=== PATIENT | female | born 1950 ===

== ENCOUNTER → 2019-12-26 10:13 | Outpatient (BNVA) | payer MEDICARE, OTHER, SELFPAY | PROVIDERS: PCP Internal Medicine; Referring Provider Internal Medicine; Visit Provider Internal Medicine | DX: E11.65 Type 2 diabetes mellitus with hyperglycemia (principal); Z79.4 Long term (current) use of insulin; M81.0 Age-related osteoporosis without current pathological fracture; E55.9 Vitamin D deficiency, unspecified; E78.5 Hyperlipidemia, unspecified; I10 Essential (primary) hypertension; Z79.899 Other long term (current) drug therapy | CPT/HCPCS: 99212 ==

== ENCOUNTER → 2020-08-17 09:04 | Outpatient (BNVA) | payer MEDICARE, OTHER, SELFPAY | PROVIDERS: PCP Internal Medicine; Visit Provider Internal Medicine | DX: E11.65 Type 2 diabetes mellitus with hyperglycemia (principal); E78.5 Hyperlipidemia, unspecified; I10 Essential (primary) hypertension; M81.0 Age-related osteoporosis without current pathological fracture; E55.9 Vitamin D deficiency, unspecified; Z79.4 Long term (current) use of insulin | CPT/HCPCS: 36415; 80053; 82009; 82947; 83036; 85025; 96372; 99212; 99283; J1815 ==

== ENCOUNTER 2020-08-17 10:16 | Emergency (ER) | payer MEDICARE, OTHER, SELFPAY ==
[2020-08-17 10:33] VITALS: BP 115/59; PULSE 105; RESP 14; TEMP 36.9; O2SAT 99; BMI 29.6
[2020-08-17 13:05] LABS: MANUAL DIFF FLAG NO
[2020-08-17 13:06] LABS: Basophils Percent Auto 0.4 % (0-2); Eosinophils Percent Auto 0.4 % (0-4); Hematocrit 39.3 % (37-47); Hemoglobin 12.9 g/dl (12.0-16.0); Imm Gran Abs Auto 0.05 X10*3/uL (0.00-0.03); Imm Gran Pct Auto 0.5 % (0.0-0.4); Lymphocytes Absolute Auto 4.2 X10*3/uL (1.2-4.9); Lymphocytes Percent Auto 41.5 % (20-40); Mean Corpuscular HGB Conc 32.8 g/dl (31.0-35.0); Mean Corpuscular Hemoglobin 29.5 pg (27.0-33.0); Mean Corpuscular Volume 89.9 fL (80-98); Mean Platelet Volume 11.5 fL (9.4-12.3); Monocytes Absolute Auto 0.7 X10*3/uL (0.1-1.2); Monocytes Percent Auto 6.9 % (2-11); Neutrophils Absolute Auto 5.1 X10*3/uL (2.0-8.3); Neutrophils Percent Auto 50.3 % (45-73); Platelet Count 277 X10*3/uL (160-400); Red Blood Count 4.37 X10*6/uL (4.20-5.50); Red Cell Distribution Width 12.5 % (11.0-16.0); White Blood Count 10.1 X10*3/uL (4.8-10.8)
[2020-08-17 13:35] LABS: Acetone, serum QL Negative (Negative)
[2020-08-17 13:47] LABS: Alanine Aminotransferase 33 U/L (0-31); Albumin Level 4.1 g/dL (3.5-5.0); Alkaline Phosphatase 125 U/L (39-117); Anion Gap 10 (12-20); Aspartate Amino Transferase 22 U/L (5-31); Bilirubin Total < 0.2 mg/dL (0.0-1.0); Blood Urea Nitrogen 15 mg/dL (9-16); Calcium 9.6 mg/dL (8.4-10.2); Carbon Dioxide 26 mmol/L (22-29); Chloride 103 mmol/L (96-108); Creatinine Clr Calc Pharmacy 62.3; Estimated Glomerular Filt Rate > 60; Glucose Random 292 mg/dL (60-115); Potassium 4.3 mmol/L (3.3-5.1); Sodium 135 mmol/L (135-145); Total Protein 7.1 g/dL (6.5-8.0)
--- NOTE | 2020-08-17 15:22 | ED_ITS ---
HPI - General Adult General Chief complaint: General Medical Stated complaint: elevated blood sugar Time Seen by Provider: 08/17/20 14:35 Source: patient Mode of arrival: ambulatory Limitations: no limitations History of Present Illness HPI narrative: 69-year-old female who presents emergency department for evaluat ion of hyperglycemia. The patient was seen by her PCP today and was found to have an elevated glucose and referred to the emergency department. The patient states that she missed her last doctor's appointment and ran out of her insulin and has not been taking her insulin for 2 months. She had a routine follow-up appointment today and was found to have a point of care glucose of 356. She states that she was given 10 units of insulin and her repeat point of care glucose was 446 therefore she was referred to emergency department for evaluation. The patient states that over the past 2 months she has had intermittent episodes of lightheadedness, dizziness and weakness. She has had urinary frequency, increased thirst and blurred vision. She denied fever, chills, chest pain, cough, nausea, vomiting, dysuria. Related Data Home Medications Medication Instructions Recorded Confirmed amitriptyline 25 mg tablet 25 mg PO DAILY 12/26/19 08/17/20 aspirin 81 mg tablet,delayed 81 mg PO DAILY 12/26/19 08/17/20 release atorvastatin 80 mg tablet 80 mg PO DAILY 12/26/19 08/17/20 blood sugar diagnostic #10 ea 12/26/19 08/17/20 calcium carbonate 600 mg calcium 600 mg PO BID 12/26/19 08/17/20 (1,500 mg) tablet cholecalciferol (vitamin D3) 50 50 mcg PO DAILY 12/26/19 08/17/20 mcg (2,000 unit) capsule Previous Rx's Medication Instructions Recorded losartan 25 mg tablet 25 mg PO DAILY 30 Days #30 tab 12/16/19 pen needle, diabetic 32 gauge x #120 ea 12/20/19 denosumab 60 mg/mL subcutaneous 60 mg SUBCUT [id number] 1 Days #1 ml 03/09/20 syringe insulin glargine 100 unit/mL (3 46 unit SUBCUT DAILY 30 Days #13.8 06/22/20 mL) subcutaneous pen ml insulin lispro 100 unit/mL 16 unit SUBCUT TID 30 Days #14.4 ml 06/22/20 subcutaneous pen insulin glargine [Lantus Solostar 50 unit SUBCUT QPM 30 Days #15 ml 08/17/20 U-100 Insulin] insulin lispro 22 unit SUBCUT TID 30 Days #19.8 ml 08/17/20 Allergies Allergy/AdvReac Type Severity Reaction Status Date / Time metformin Allergy Unknown GI Verified 08/17/20 09:14 discomfort Review of Systems Review of Systems: Yes all other systems are reviewed and are negative [facility] Past Medical History [facility] Narrative: Social history: The patient denies tobacco, alcohol and drug use. Medical History HLD (hyperlipidemia) HTN (hypertension) Osteoporosis T2DM (type 2 diabetes mellitus) Type 2 diabetes mellitus with hyperglycemia Vitamin D deficiency Surgical History History of kidney stones Hx of hysterectomy Family History Family History Father COPD (chronic obstructive pulmonary disease) Mother Osteoporosis Type 2 diabetes mellitus Social History Social History Patient Tobacco Use Status: Never used Tobacco Physical Exam Vital Signs: Vital Signs: Last Vital Signs Temp 98.4 F 08/17/20 10:33 Pulse 105 H 08/17/20 10:33 Resp 14 08/17/20 10:33 BP 115/59 L 08/17/20 10:33 Pulse Ox 99 08/17/20 10:33 Body Mass Index 29.6 Const: General: cooperative and healthy appearing Orientation/consciousness: oriented to person and oriented to place Limitations: no limitations HENMT: Head: Yes normal to inspection, Yes normocephalic and Yes atraumatic Ears: external ears normal General nose exam: Normal external nose present Face and sinus: Yes normal facial exam Mouth: Normal oral and palatal mucosa present Throat: Yes posterior oropharynx normal Eyes: Periorbital: periorbital findings normal Eyelids: Yes eyelids normal Conjunctivae: conjunctivae normal Sclerae: sclerae normal Corneas: corneas normal Pupils: Equal, round and reactive pupils present Direct Ophthalmoscopy: normal light reflex Neck: Neck: Yes full ROM, Yes no lymphadenopathy, Yes no meningeal signs, Yes trachea midline and Yes supple Chest: Chest palpation & inspection: normal inspection of the chest and normal palpation of entire chest wall Resp: Effort & Inspection: normal respiratory effort and able to speak in complete sentences Auscultation: clear to auscultation bilaterally Cardio: Rate: regular rate Rhythm: regular rhythm Heart sounds: S1 normal heart sound present, S2 normal heart sound present and no murmurs GI: Inspection: Yes normal to inspection Palpation (GI): Soft to palpation, nontender, no guarding, not rigid and No hepatosplenomegaly present : General: Yes no CVA tenderness Back/Spine/Pelvis: Back: no CVA tenderness Cervical Spine: normal cervical lordosis Thoracic/Lumbar Spine: thoracic and lumbar spine normal to inspection Skin: Lesions: no lesions Rashes: no rashes Wounds: no wounds Neuro: General: oriented to person, oriented to place and no meningeal signs Cranial nerves: Yes CN's II-XII intact bilaterally and Yes Equal, round and reactive pupils present Cognition (Neuro): normal cognition Motor exam (neuro): 5/5 motor strength present throughout Extrem: General: Yes normal to inspection and Yes full ROM Psych: Appearance: well kempt Mental Status: mental status grossly normal Speech and movement: Normal speech and movement present Affect: normal affect Attitude: cooperative Thought process: Normal thought process present Thought content: Normal thought content present Course Course Course Narrative: 69-year-old female who presents emergency department for evaluation of elevated glucose and to rule out DKA. The patient does have a history diabetes mellitus and ran out of her insulin x2 months. The patient told me that she takes Lantus 50 units at night and Humalog 22 units prior to meals. Patient's vital signs revealed tachycardia with a pulse of 105 otherwise were unremarkable. Patient's physical examination was unremarkable. Laboratory evaluation revealed a normal CBC. Patient's comprehensive metabolic panel did reveal an elevated AST and ALT of 33 and 125. Patient's bicarb was normal at 26 And anion gap was low at 10. The patient's serum glucose was 292.. The patient's acetone was not elevated. at this time, I do not think the patient is in DKA and that it is okay just to restart her insulin. She was given Lantus 30 units subcutaneously. I did give her printed prescription that she can take to the pharmacy. I told her that for doctor who called in a prescription radiation should get her doctor's prescription filled instead of my prescription. The patient was given verbal and printed instructions prior to discharge. The patient was advised to follow-up with their PCP in 2 days and to return to the emergency department if their symptoms get worse or if they develop any new s ymptoms that are concerning to them Medical Decision Making Lab Data Result diagrams: 08/17/20 12:52 08/17/20 12:52 Labs: Lab Results 08/17/20 08/17/20 Range/Units 12:52 12:52 WBC 10.1 (4.8-10.8) X10*3/uL RBC 4.37 (4.20-5.50) X10*6/uL Hgb 12.9 (12.0-16.0) g/dl Hct 39.3 (37-47) % MCV 89.9 (80-98) fL MCH 29.5 (27.0-33.0) pg MCHC 32.8 (31.0-35.0) g/dl RDW 12.5 (11.0-16.0) % Plt Count 277 (160-400) X10*3/uL MPV 11.5 (9.4-12.3) fL Immature Gran % (Auto) 0.5 H (0.0-0.4) % Neut % (Auto) 50.3 (45-73) % Lymph % (Auto) 41.5 H (20-40) % [place] % (Auto) 6.9 (2-11) % Eos % (Auto) 0.4 (0-4) % Baso % (Auto) 0.4 (0-2) % Lymph # (Auto) 4.2 (1.2-4.9) X10*3/uL [place] # (Auto) 0.7 (0.1-1.2) X10*3/uL Eos # (Auto) 0.0 (0.0-0.4) X10*3/uL Baso # (Auto) 0.0 (0.0-0.2) X10*3/uL Abs Immat Gran (auto) 0.05 H (0.00-0.03) X10*3/uL Absolute Neuts (auto) 5.1 (2.0-8.3) X10*3/uL Absolute Nucleated RBC 0.000 (0.0-0.012) X10*3/uL Nucleated RBC % (auto) 0.0 (0.0-0.2) /100WBC Sodium 135 (135-145) mmol/L Potassium 4.3 (3.3-5.1) mmol/L Chloride 103 (96-108) mmol/L Carbon Dioxide 26 (22-29) mmol/L Anion Gap 10 L (12-20) BUN 15 (9-16) mg/dL Creatinine 0.79 (0.5-1.4) mg/dL Estim Creat Clear Calc 62.3 Estimated GFR > 60 Random Glucose 292 H (60-115) mg/dL Calcium 9.6 (8.4-10.2) mg/dL Total Bilirubin < 0.2 (0.0-1.0) mg/dL AST 22 (5-31) U/L ALT 33 H (0-31) U/L Alkaline Phosphatase 125 H (39-117) U/L Total Protein 7.1 (6.5-8.0) g/dL Albumin 4.1 (3.5-5.0) g/dL Acetone, Qual Negative (Negative) Discharge Plan Discharge Clinical Impression: Type 2 diabetes mellitus with hyperglycemia Patient Disposition: Home, Self-Care Additional Instructions: Your blood work did reveal an elevated blood sugar of 292 but the rest of your blood chemistries were normal suggesting that your not in diabetic ketoacidosis which means we can just restart your insulin in you do not need to be hospitalized. I am giving you printed prescriptions for Lantus ( insulin glargine ) and Humolog( insulin lispro). Please get these prescriptions filled if your doctor did not send a prescription to your pharmacy. Follow-up with your doctor in 2 days. Please return to the emergency department if your symptoms get worse or if you develop any symptoms that are concerning to you. Prescriptions: New Lantus Solostar U-100 Insulin 100 unit/mL (3 mL) insulin pen 50 unit subcut QPM 30 Days Qty: 15 RF: 0 insulin lispro 100 unit/mL insulin pen 22 unit subcut TID 30 Days Qty: 19.8 RF: 0 No Action losartan 25 mg tablet 25 mg PO DAILY 30 Days Qty: 30 RF: 11 (DME) pen needle, diabetic [BD Ultra-Fine Sheree Pen Needle] 32 gauge x 5/32 needle See Rx Instructions .ROUTE .MEDSUPPLY Qty: 120 RF: 6 Prolia 60 mg/mL syringe 60 mg subcut [id number] 1 Days Qty: 1 RF: 2 Lantus Solostar U-100 Insulin 100 unit/mL (3 mL) insulin pen 46 unit subcut DAILY 30 Days Qty: 13.8 RF: 3 insulin lispro [Humalog KwikPen Insulin] 100 unit/mL insulin pen 16 unit subcut TID 30 Days Qty: 14.4 RF: 3 amitriptyline 25 mg tablet 25 mg PO DAILY RF: 0 atorvastatin 80 mg tablet 80 mg PO DAILY RF: 0 aspirin 81 mg tablet,delayed release (DR/EC) 81 mg PO DAILY RF: 0 cholecalciferol (vitamin D3) 50 mcg (2,000 unit) capsule 50 mcg PO DAILY RF: 0 calcium carbonate 600 mg calcium (1,500 mg) tablet 600 mg PO BID RF: 0 (DME) FreeStyle Test Strip See Rx Instructions .ROUTE .MEDSUPPLY Qty: 10 RF: 0
[2020-08-17] MEDS: Insulin Glargine,Hum.rec.anlog 100 UNIT/ML 10 ML VIAL 50 UNIT SUBCUT (15:48)
== END 2020-08-17 15:53 | disposition home or self-care (01) ==
PROVIDERS: Emergency Provider Emergency Medicine Emergency Medical Services; PCP Internal Medicine
DX: E11.65 Type 2 diabetes mellitus with hyperglycemia (principal); T38.3X6A Underdosing of insulin and oral hypoglycemic [antidiabetic] drugs, initial encounter; Z91.128 Patient's intentional underdosing of medication regimen for other reason; Y92.9 Unspecified place or not applicable; I10 Essential (primary) hypertension; Z79.899 Other long term (current) drug therapy
CPT/HCPCS: 36415; 80053; 82009; 85025; 99283

== ENCOUNTER → 2020-11-26 08:02 | Outpatient (BNVA) | payer MEDICARE, OTHER, SELFPAY | PROVIDERS: PCP Internal Medicine; Visit Provider Nurse Practitioner Gerontology | DX: E11.65 Type 2 diabetes mellitus with hyperglycemia (principal); E78.5 Hyperlipidemia, unspecified; I10 Essential (primary) hypertension; Z79.4 Long term (current) use of insulin | CPT/HCPCS: 82947; 99212 ==

== ENCOUNTER 2020-12-07 07:53 | Outpatient (REF) | payer MEDICARE, OTHER, SELFPAY ==
[2020-12-07 08:36] LABS: Estimated Average Glucose 171 mg/dL; Hemoglobin A1C 184.2139 umol/L; Hemoglobin A1c % 7.6 %
[2020-12-07 09:01] LABS: Alanine Aminotransferase 20 U/L (0-31); Albumin Level 4.1 g/dL (3.5-5.0); Alkaline Phosphatase 98 U/L (39-117); Anion Gap 11 (12-20); Aspartate Amino Transferase 17 U/L (5-31); Bilirubin Total 0.2 mg/dL (0.0-1.0); Blood Urea Nitrogen 16 mg/dL (9-16); Calcium 9.5 mg/dL (8.4-10.2); Carbon Dioxide 27 mmol/L (22-29); Chloride 109 mmol/L (96-108); Cholesterol 158 mg/dL; Estimated Glomerular Filt Rate > 60; Glucose Random 90 mg/dL (60-115); HDL Cholesterol 38 mg/dL; LDL Cholesterol Calculated 98 mg/dl; Phosphorus 4.4 mg/dL (2.7-4.5); Potassium 4.3 mmol/L (3.3-5.1); Sodium 143 mmol/L (135-145); Total Protein 7.2 g/dL (6.5-8.0); Triglycerides 113 mg/dL
[2020-12-07 09:15] LABS: Creatinine Urine 186.77 mg/dL; Microalbum/Creatinine Ratio Ur 12.3 ug/mg cr
[2020-12-07 09:22] LABS: Vitamin D 25-OH Total 40.7 ng/mL (>30)
[2020-12-08 06:31] LABS: LDL Cholesterol Direct 97 mg/dL (<100)
[2020-12-08 16:05] LABS: Calcium (PTHI) 9.7 mg/dL (8.6-10.4); PTHI 51 pg/mL (14-64)
[2020-12-10 17:12] LABS: N-Telopeptide 47 (see note); NTXCreaRU 172 mg/dL (20-275)
== END 2020-12-07 07:54 | disposition home or self-care (01) ==
LOC: HO.LAB 07:53
PROVIDERS: PCP Internal Medicine; Visit Provider Internal Medicine
DX: M81.0 Age-related osteoporosis without current pathological fracture (principal); E11.65 Type 2 diabetes mellitus with hyperglycemia; E55.9 Vitamin D deficiency, unspecified; Z79.4 Long term (current) use of insulin
CPT/HCPCS: 36415; 80053; 80061; 82043; 82306; 82523; 83036; 83721; 83970; 84100

== ENCOUNTER → 2020-12-22 08:26 | Outpatient (BNVA) | payer MEDICARE, OTHER, SELFPAY | PROVIDERS: PCP Internal Medicine; Visit Provider Registered Nurse Diabetes Educator | DX: E11.65 Type 2 diabetes mellitus with hyperglycemia (principal); Z79.4 Long term (current) use of insulin | CPT/HCPCS: 99211 ==

== ENCOUNTER → 2021-01-05 08:21 | Outpatient (BNVA) | payer MEDICARE, OTHER, SELFPAY | PROVIDERS: PCP Internal Medicine; Visit Provider Registered Nurse Diabetes Educator | DX: E11.65 Type 2 diabetes mellitus with hyperglycemia (principal) | CPT/HCPCS: 99211 ==

== ENCOUNTER → 2021-01-19 07:42 | Outpatient (BNVA) | payer MEDICARE, OTHER, SELFPAY | PROVIDERS: PCP Internal Medicine; Visit Provider Registered Nurse Diabetes Educator | DX: E11.65 Type 2 diabetes mellitus with hyperglycemia (principal) | CPT/HCPCS: 99211 ==

== ENCOUNTER 2021-02-19 08:44 | Outpatient (REF) | payer MEDICARE, OTHER, SELFPAY ==
[2021-02-19 10:10] LABS: COVID-19 Test Negative (Negative)
== END 2021-02-19 08:45 | disposition home or self-care (01) ==
LOC: HO.LAB 08:44
PROVIDERS: Visit Provider Internal Medicine
DX: Z20.822 Contact with and (suspected) exposure to COVID-19 (principal)
CPT/HCPCS: 36415; 87635; C9803

== ENCOUNTER → 2021-03-22 08:13 | Outpatient (BNVA) | payer MEDICARE, SELFPAY | PROVIDERS: PCP Internal Medicine; Visit Provider Internal Medicine | DX: M81.0 Age-related osteoporosis without current pathological fracture (principal); E78.5 Hyperlipidemia, unspecified; E55.9 Vitamin D deficiency, unspecified | CPT/HCPCS: Q3014 ==

== ENCOUNTER → 2021-03-23 08:30 | Outpatient (BNVA) | payer MEDICARE, OTHER, SELFPAY | PROVIDERS: PCP Internal Medicine; Visit Provider Registered Nurse Diabetes Educator | DX: E11.65 Type 2 diabetes mellitus with hyperglycemia (principal); Z79.4 Long term (current) use of insulin | CPT/HCPCS: Q3014 ==

== ENCOUNTER → 2021-03-30 08:00 | Outpatient (BNVA) | payer MEDICARE, SELFPAY | PROVIDERS: Visit Provider Registered Nurse Diabetes Educator | DX: E11.65 Type 2 diabetes mellitus with hyperglycemia (principal); Z79.4 Long term (current) use of insulin | CPT/HCPCS: Q3014 ==

== ENCOUNTER 2021-04-07 10:14 | Outpatient (REF) | payer MEDICARE, SELFPAY ==
--- NOTE | ~2021-04-07 | MM_ITS ---
EXAMINATION: BONE DENSITOMETRY CLINICAL INDICATION: Age-related osteoporosis without current pathological fracture. COMPARISON: Baseline BD dated 03/30/2018. TECHNIQUE: Using a Frodio DXA System (software version: 13.1) manufactured by [employer], dual-energy x-ray absorptiometry was performed of the lumbar spine and left hip. The images are of good technical quality. Summary results are attached. FINDINGS: AP SPINE L1-L4: Current: BMD 0.703 g/cm2, Z-score -2.5, T-score -4.0, osteoporosis, 2.0% increase from baseline (<5% change is not significant). Baseline: BMD 0.689 g/cm2. LEFT FEMUR, NECK: Current: BMD 0.614 g/cm2, Z-score -1.6, T-score -3.0, osteoporosis. Baseline: BMD 0.618 g/cm2. LEFT FEMUR, TOTAL: Current: BMD 0.706 g/cm2, Z-score -1.2, T-score -2.4, osteopenia, 0.9% increase from baseline (<5% change is not significant). Baseline: BMD 0.700 g/cm2. IDENTIFIED RISK FACTORS: Early menopause, secondary osteoporosis, history of fracture (adult), osteoporosis, height loss, hysterectomy, bilateral oophorectomy. HISTORY OF FRACTURE: Ankle. MEDICATIONS: Calcium supplements or multivitamin, vitamin D, Prolia. MM/XR DEXA axial skeleton IMPRESSION: 1. DIAGNOSIS: Osteoporosis based on the lowest T-score value of -4.0 in the lumbar spine applying World Health Organization criteria. 2. 10-YEAR FRACTURE RISK PREDICTION, FRAX: According to the guidelines, FRAX calculation should only be performed on patients in the osteopenia bone density category. Therefore, FRAX was not performed on this patient. 3. Treatment Recommendations: NOF guidelines recommend consideration for treatment in postmenopausal women and men age 50 and older presenting with the following: -A hip or vertebral (clinical or morphometric) fracture. -T-score less than or equal to -2.5 at the femoral neck or spine after appropriate evaluation to exclude secondary causes. -Low bone mass at the hip or spine and a 10-year fracture probability by FRAX of greater than or equal to 3% for hip fracture or greater than or equal to 20% for major osteoporotic fracture based on the [place] adapted WHO algorithm. 4. Other Recommendations: All treatment decisions require clinical judgment and consideration of individual patient factors, including patient preferences, comorbidities, previous drug use, risk factors not captured in the FRAX model (e.g. frailty, falls, vitamin D deficiency, increased bone turnover, interval significant decline in bone density) and possible under or overestimation of fracture risk by FRAX. Additional medical evaluation for secondary cause of low bone mineral density may be appropriate. FUTURE SCAN RECOMMENDATION: People with diagnosed cases of osteoporosis or at high risk for fracture should have regular bone mineral density tests. For patients eligible for Medicare, routine testing is allowed once every 2 years. The testing frequency can be increased to one year for patients who have rapidly progressing disease, those who are receiving or discontinuing medical therapy to restore bone mass, or have additional risk factors.
== END 2021-04-07 10:15 | disposition home or self-care (01) ==
LOC: HO.MAMMO 10:14
PROVIDERS: Visit Provider Internal Medicine
DX: Z13.820 Encounter for screening for osteoporosis (principal); M81.0 Age-related osteoporosis without current pathological fracture; Z78.0 Asymptomatic menopausal state; Z79.899 Other long term (current) drug therapy
CPT/HCPCS: 77080

== ENCOUNTER 2021-05-26 07:40 | Outpatient (REF) | payer MEDICARE, SELFPAY ==
[2021-05-26 10:54] LABS: Alanine Aminotransferase 16 U/L (0-31); Albumin Level 4.1 g/dL (3.5-5.0); Alkaline Phosphatase 111 U/L (39-117); Anion Gap 14 (12-20); Aspartate Amino Transferase 13 U/L (5-31); Bilirubin Total 0.4 mg/dL (0.0-1.0); Blood Urea Nitrogen 14 mg/dL (9-16); Calcium 10.1 mg/dL (8.4-10.2); Carbon Dioxide 26 mmol/L (22-29); Chloride 106 mmol/L (96-108); Estimated Glomerular Filt Rate > 60; Glucose Random 198 mg/dL (60-115); Phosphorus 4.1 mg/dL (2.7-4.5); Potassium 4.8 mmol/L (3.3-5.1); Sodium 141 mmol/L (135-145); Total Protein 7.4 g/dL (6.5-8.0)
[2021-05-26 11:20] LABS: Thyroid Stimulating Hormone 1.22 uIU/mL (0.32-4.0); Vitamin D 25-OH Total 53.3 ng/mL (>30)
[2021-05-27 15:02] LABS: Calcium (PTHI) 10.1 mg/dL (8.6-10.4); PTHI 28 pg/mL (16-77)
[2021-06-01 16:41] LABS: N-Telopeptide 33 (see note); NTXCreaRU 158 mg/dL (20-275)
== END 2021-05-26 07:41 | disposition home or self-care (01) ==
LOC: HO.10HDL 07:40
PROVIDERS: Internal Medicine; PCP Internal Medicine; Visit Provider Registered Nurse Diabetes Educator
DX: E11.65 Type 2 diabetes mellitus with hyperglycemia (principal); M81.0 Age-related osteoporosis without current pathological fracture; E55.9 Vitamin D deficiency, unspecified
CPT/HCPCS: 36415; 80053; 82306; 82523; 83970; 84100; 84443; 99211

== ENCOUNTER 2021-06-29 09:40 | Outpatient (REF) | payer MEDICARE, SELFPAY ==
--- NOTE | ~2021-06-29 | MM_ITS ---
EXAMINATION: MM SCREENING DIGITAL BREAST TOMOSYNTHESIS, BILATERAL CLINICAL INFORMATION: Screening. Asymptomatic. The lifetime risk of breast cancer based on the Tyrer-Cuzick Model is 4%. COMPARISON: Mammography: 10/30/2019, 03/16/2018, 02/11/2015 TECHNIQUE: Digital breast tomosynthesis is performed in both the craniocaudal and mediolateral oblique views along with computer-aided detection (CAD). Synthesized 2D images are generated from the tomosynthesis. FINDINGS: The breasts are heterogeneously dense, which may obscure small masses (ACR BI-RADS breast composition Category c). There are no significant masses, abnormal calcifications, or other abnormalities. Parenchymal pattern is similar to prior studies. No developing density or architectural abnormality. The axilla are unremarkable. Skin contours are smooth. MM/MM tomosynthesis screening BI IMPRESSION: No mammographic evidence of malignancy. ASSESSMENT: BI-RADS 1: Negative RECOMMENDATION: Routine annual mammography screening. This patient's information was entered into a reminder system with a target due date for their next mammogram.
== END 2021-06-29 09:41 | disposition home or self-care (01) ==
LOC: HO.MAMMO 09:40
PROVIDERS: Visit Provider Internal Medicine
DX: Z12.31 Encounter for screening mammogram for malignant neoplasm of breast (principal)
CPT/HCPCS: 77063; 77067

== ENCOUNTER → 2021-07-07 08:06 | Outpatient (BNVA) | payer MEDICARE, SELFPAY | PROVIDERS: PCP Internal Medicine; Visit Provider Internal Medicine | DX: M81.0 Age-related osteoporosis without current pathological fracture (principal) | CPT/HCPCS: Q3014 ==

== ENCOUNTER → 2021-07-30 07:56 | Outpatient (BNVA) | payer MEDICARE, SELFPAY | PROVIDERS: PCP Internal Medicine; Visit Provider Registered Nurse Diabetes Educator | DX: E11.65 Type 2 diabetes mellitus with hyperglycemia (principal); Z79.4 Long term (current) use of insulin | CPT/HCPCS: 99211 ==

== ENCOUNTER → 2021-09-23 07:47 | Outpatient (BNVA) | payer MEDICARE, SELFPAY | PROVIDERS: PCP Internal Medicine; Visit Provider Registered Nurse Diabetes Educator | DX: E11.65 Type 2 diabetes mellitus with hyperglycemia (principal); Z79.4 Long term (current) use of insulin | CPT/HCPCS: 99211 ==

== ENCOUNTER → 2021-10-06 07:53 | Outpatient (BNVA) | payer MEDICARE, SELFPAY | PROVIDERS: PCP Internal Medicine; Visit Provider Internal Medicine Endocrinology, Diabetes & Metabolism | DX: E11.65 Type 2 diabetes mellitus with hyperglycemia (principal); M81.0 Age-related osteoporosis without current pathological fracture | CPT/HCPCS: 82947; 99212 ==

== ENCOUNTER → 2021-10-27 08:08 | Outpatient (BNVA) | payer MEDICARE, SELFPAY | PROVIDERS: PCP Internal Medicine; Visit Provider Registered Nurse Diabetes Educator | DX: E11.65 Type 2 diabetes mellitus with hyperglycemia (principal); Z79.4 Long term (current) use of insulin | CPT/HCPCS: 99211 ==

== ENCOUNTER → 2021-12-14 08:55 | Outpatient (BNVA) | payer MEDICARE, SELFPAY | PROVIDERS: Visit Provider Dietitian, Registered | DX: E11.65 Type 2 diabetes mellitus with hyperglycemia (principal); Z79.4 Long term (current) use of insulin | CPT/HCPCS: 97802 ==

== ENCOUNTER → 2021-12-15 09:15 | Outpatient (BNVA) | payer MEDICARE, SELFPAY | PROVIDERS: Visit Provider Registered Nurse Diabetes Educator | DX: E11.65 Type 2 diabetes mellitus with hyperglycemia (principal); Z79.4 Long term (current) use of insulin | CPT/HCPCS: 99211 ==

== ENCOUNTER → 2022-01-31 13:19 | Outpatient (BNVA) | payer MEDICARE, OTHER, SELFPAY | PROVIDERS: Visit Provider Registered Nurse Diabetes Educator | DX: E11.65 Type 2 diabetes mellitus with hyperglycemia (principal); Z79.4 Long term (current) use of insulin | CPT/HCPCS: 99211 ==

== ENCOUNTER 2022-02-01 12:52 | Outpatient (REF) | payer MEDICARE, SELFPAY ==
[2022-02-01 13:49] LABS: Cholesterol 126 mg/dL; HDL Cholesterol 44 mg/dL; LDL Cholesterol Calculated 64 mg/dl; Triglycerides 94 mg/dL
[2022-02-01 13:59] LABS: Creatinine Urine 122.27 mg/dL; Microalbum/Creatinine Ratio Ur 5.7 ug/mg cr
== END 2022-02-01 12:53 | disposition home or self-care (01) ==
LOC: HO.LAB 12:52
PROVIDERS: PCP Internal Medicine; Visit Provider Internal Medicine Endocrinology, Diabetes & Metabolism
DX: E11.65 Type 2 diabetes mellitus with hyperglycemia (principal)
CPT/HCPCS: 36415; 80061; 82043

== ENCOUNTER → 2022-02-02 07:45 | Outpatient (BNVA) | payer MEDICARE, SELFPAY | PROVIDERS: PCP Internal Medicine; Visit Provider Internal Medicine Endocrinology, Diabetes & Metabolism | DX: E11.65 Type 2 diabetes mellitus with hyperglycemia (principal); M81.0 Age-related osteoporosis without current pathological fracture; Z79.4 Long term (current) use of insulin | CPT/HCPCS: 82947; 83036; 99212 ==

== ENCOUNTER 2022-05-25 11:47 | Outpatient (REF) | payer MEDICARE, SELFPAY ==
--- NOTE | ~2022-05-25 | XR_ITS ---
EXAMINATION: XR ABDOMEN COMPLETE CLINICAL INDICATION: Reason for Exam LUQ ABD PAIN COMPARISON: None TECHNIQUE: AP view of the abdomen. FINDINGS: Lines or devices: None. Nonobstructive bowel gas pattern. Moderate colonic stool burden. No extraluminal subdiaphragmatic air. No abnormal calcifications. Lung bases appear clear. XR/XR abdomen min 2V IMPRESSION: * Nonobstructive bowel gas pattern.
== END 2022-05-25 11:48 | disposition home or self-care (01) ==
LOC: HO.XRAY 11:47
PROVIDERS: Visit Provider Emergency Medicine
DX: R10.12 Left upper quadrant pain (principal)
CPT/HCPCS: 74019

== ENCOUNTER → 2022-08-10 07:48 | Outpatient (BNVA) | payer OTHER, SELFPAY | PROVIDERS: Visit Provider Internal Medicine Endocrinology, Diabetes & Metabolism | DX: E11.65 Type 2 diabetes mellitus with hyperglycemia (principal); M81.0 Age-related osteoporosis without current pathological fracture | CPT/HCPCS: 82947; 83036; 99212 ==

== ENCOUNTER 2022-09-12 09:10 | Outpatient (AMB) | payer OTHER, SELFPAY ==
--- NOTE | 2022-09-12 09:35 | MHC.AMDMED ---
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 Accompanied by: Self / Same As Patient Allergies metformin Allergy (Unknown, Verified 08/10/22 07:54) GI discomfort HPI Comprehensive Diabetes Asmnt Most Recent Diabetes Results: Microalb/Creat Ratio 5.7 ug/mg cr 02/01/22 Cholesterol 126 mg/dL 02/01/22 HDL Cholesterol 44 mg/dL 02/01/22 Triglycerides 94 mg/dL 02/01/22 PFSH Medical History Fibromyalgia HLD (hyperlipidemia) HTN (hypertension) Osteoporosis T2DM (type 2 diabetes mellitus) Type 2 diabetes mellitus with hyperglycemia Vitamin D deficiency Surgical History History of kidney stones Hx of hysterectomy Family History Father COPD (chronic obstructive pulmonary disease) Mother Osteoporosis Type 2 diabetes mellitus Social History Household Members: Spouse and Children Household Members Other:: , and adopted son Alcohol intake: former Patient Tobacco Use Status: Never used Tobacco Assessment & Plan Assessment & Plan (1) Type 2 diabetes mellitus with hyperglycemia: Code(s): E11.65 - Type 2 diabetes mellitus with hyperglycemia Plan: Patient here for follow-up visit. Patient did not bring glucose meter, patient reports she lost glucose meter and sensor insurance change she has been unable to get glucose sensor. Will resubmit CMN for Dexcome G7 Topics covered in today?s session included: Medications (If applicable) ? Name of medication? Dosing/administration instructions? Mechanism of action? Potential side effects? Potential adverse reaction and appropriate treatment? Review onset, peak, duration Assess for concerns re: insurance coverage, cost, barriers to compliance Insulin/Injectables (If applicable) ? Storage/care of insulin? Injection sites? Site rotation? Onset, peak, duration ? Drawing up insulin? Injecting insulin/other injectables? Sharps disposal Continuous blood glucose monitoring (if applicable) ?Blood glucose targets and how you feel when your blood glucose is in and out of your target ranges. ?Monitoring and knowing your A1C. ?What can make blood glucose go up and down and preventing high and low blood glucose. ?Review of blood sugar targets in expected goal range and outside of expected goal range. ?Problem solving and preventing hyper/hypoglycemia. ?Sick day management of diabetes. ?Using blood sugar results in decision making process in managing diabetes. ?Patient was receptive to information provided and participated in the discussion. Asked?appropriate questions and demonstrated good understanding of the topics discussed.? ? Prescription request for Basaglar and glucose meter sent to Dr. Hoskins Patient Response to instructions: Comprehension of Instructions: fair Readiness to make changes:? Contemplation How confident they feel about making changes: Fair Patient Instructions: Patient will follow-up with hospice educator in 1 month Coding Level of Care Code Est Pt Level 1 (74520) Diagnoses Type 2 diabetes mellitus with hyperglycemia E11.65
== END 2022-09-12 09:45 | disposition home or self-care (01) ==
PROVIDERS: Visit Provider Registered Nurse Diabetes Educator
DX: E11.65 Type 2 diabetes mellitus with hyperglycemia (principal)

== ENCOUNTER → 2022-09-12 09:10 | Outpatient (BNVA) | payer OTHER, SELFPAY | PROVIDERS: Visit Provider Registered Nurse Diabetes Educator | DX: E11.65 Type 2 diabetes mellitus with hyperglycemia (principal) | CPT/HCPCS: 99211 ==

== ENCOUNTER 2022-10-18 08:53 | Outpatient (AMB) | payer OTHER, SELFPAY ==
--- NOTE | 2022-10-18 09:11 | MHC.AMDMED ---
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 Accompanied by: Self / Same As Patient Allergies metformin Allergy (Unknown, Verified 08/10/22 07:54) GI discomfort HPI Comprehensive Diabetes Asmnt Most Recent Diabetes Results: Microalb/Creat Ratio 5.7 ug/mg cr 02/01/22 Cholesterol 126 mg/dL 02/01/22 HDL Cholesterol 44 mg/dL 02/01/22 Triglycerides 94 mg/dL 02/01/22 PFSH Medical History Fibromyalgia HLD (hyperlipidemia) HTN (hypertension) Osteoporosis T2DM (type 2 diabetes mellitus) Type 2 diabetes mellitus with hyperglycemia Vitamin D deficiency Surgical History History of kidney stones Hx of hysterectomy Family History Father COPD (chronic obstructive pulmonary disease) Mother Osteoporosis Type 2 diabetes mellitus Social History Household Members: Spouse and Children Household Members Other:: , and adopted son Alcohol intake: former Patient Tobacco Use Status: Never used Tobacco Assessment & Plan Assessment & Plan (1) Type 2 diabetes mellitus with hyperglycemia: Code(s): E11.65 - Type 2 diabetes mellitus with hyperglycemia Plan: Personal Continuous Glucose Monitor: Patients CGM information reviewed Patient only had 48 hours worth of data on CGM Reviewed patient's sensor data: Hypoglycemia: ? 7% Hyperglycemia:? 6% Time in Range:? 87% Average glucose for the last 2 days 110 mg/dL Instructed Pt to reduce Lantus from 46 units to 42 units daily, if after 3 days she is still experiencing overnight hypoglycemia to reduce Lantus to 38 units Patient is interested in restarting Omnipod insulin pump And she has been off pump for approximately 5 years Explained to patient that we will switch Dexcom G7 sensor to Dexcom G6 sensors with Omnipod 5 so she will be able to use integrated insulin pump system Reviewed how to interpret trend arrows Reminded patient that to check finger sticks if symptoms do not match sensor reading. Discussed lag time between finger stick and sensor data.? Patient able to insert sensor independently at home without issue.? Patient Instructions: Reduce Lantus 46 units to 42 units after 3 days if still experiencing overnight hyperglycemia reduce Lantus to 38 units Coding Level of Care Code Est Pt Level 1 (60699) Diagnoses Type 2 diabetes mellitus with hyperglycemia E11.65
== END 2022-10-18 09:20 | disposition home or self-care (01) ==
PROVIDERS: Visit Provider Registered Nurse Diabetes Educator
DX: E11.65 Type 2 diabetes mellitus with hyperglycemia (principal)

== ENCOUNTER → 2022-10-18 08:53 | Outpatient (BNVA) | payer OTHER, SELFPAY | PROVIDERS: Visit Provider Registered Nurse Diabetes Educator | DX: E11.65 Type 2 diabetes mellitus with hyperglycemia (principal) | CPT/HCPCS: 99211 ==

== ENCOUNTER 2023-02-09 08:11 | Outpatient (AMB) | payer OTHER, SELFPAY ==
[2023-02-09 08:20] VITALS: BP 124/84; PULSE 119; BMI 27.2
--- NOTE | 2023-02-09 08:20 | A.OFFVIS_ITS ---
Intake Vital Signs 02/09/23 08:20 Height 5 ft 2 in Weight 148 lb 12.992 oz BMI 27.2 BP 124/84 Blood Pressure Location Lt brachial Position Sitting Pulse 119 H Pulse Source Pulse Oximeter Intake Visit Reasons: f/u Type 2 DM/osteoporosis-CONFIRMED Intake Note: Patient presents today to follow up on DMT2 and Osteoporosis. Last Diabetic Eye exam: 12/2022 Last Podiatry Visit: None Random Glucose: 91 mg/dl HgA1C:5.7% Associate Software Development Engineer Required: No Accompanied by: Self / Same As Patient Allergies metformin Allergy (Unknown, Verified 02/09/23 08:34) GI discomfort Medication List - Last Reconciled 02/09/23 by Ifeanyi Hoskins MD amitriptyline 25 mg PO DAILY aspirin 81 mg PO DAILY atorvastatin 80 mg PO DAILY blood sugar diagnostic (Merchant Atlas Verio test strips) 3 times a day blood-glucose meter (FreeStyle Lowry Lite kit) As directed tests 1 X/day blood-glucose meter As directed 3x/day blood-glucose meter (Merchant Atlas Verio Flex Meter) As directed test 4 times a day blood-glucose sensor (Dexcom G7 Sensor device) As directed change every 10 days blood-glucose sensor (Dexcom G7 Sensor device) As directed change every 10 days calcium carbonate 600 mg PO BID cholecalciferol (vitamin D3) 50 mcg PO DAILY dulaglutide (Trulicity) 1.5 mg (0.5 mL) subcut QWEEK insulin aspart U-100 (Novolog FlexPen U-100 Insulin aspart) 15 units (0.15 mL) subcut TID insulin glargine (Lantus Solostar U-100 Insulin) 46 units (0.46 mL) subcut DAILY insulin pump cart,auto,BT-cntr (Omnipod 5 G6 Intro Kit (Gen 5) subcutaneous cart ridge with controller) As directed insulin pump cart,automated,BT (Omnipod 5 G6 Pods (Gen 5) subcutaneous cartridge) As directed insulin syringe-needle U-100 (BD Insulin Syringe Ultra-Fine) Twice a day lancets (Resident Giftsuch Delica Lancets) 4 times a day losartan 25 mg PO DAILY omeprazole 40 mg PO DAILY pen needle, diabetic (BD Sheree 2nd Gen Pen Needle) USE DIRECTED FOUR TIMES A DAY HPI HPI Comments History of Present Illness Details 72 YO F with PMHx T2DM, HLD, Osteoporosis who is seen in F/U today for her diabetes and Osteoporosis. In terms of her diabetes, she takes Basaglar 40 units Novolog 12 units prelunch just reduced Trulicity 1.5 mg Qwkly Took metformin -diarrhea Ozempic caused coughing Sensor download does not show recent use. Patient is out of sensors Denies Hypoglycemia Not Up-to-date with ophthalmology Had appt With regard to osteoporosis: Dr. White note, the patient has been poorly compliant with follow up. She has frequently missed doses of Prolia. She was last due over a year ago and did not follow up for her injection. She saw me in February of 2021 and decision was made to switch her to IV Reclast. Never recived reclast then but tok it in past for 3 -4 yrs . She had a repeat BMD which revealed severe osteoporosis of the spine. We had attempted to contact her for many months to schedule her infusion via telephone and also sent multiple letters. She never responded to us. She now presents for follow up. She was to decide on whether she would get anabolic therapy or resume Prolia. History: She has a history of Osteoporosis due to early menopause. Received first Prolia injection 09/03/18. Received 2nd dose of Prolia 03/06/2019. Third Dose of Prolia 10/29/2019. Tolerated this well. She then cancelled her 4th dose and has not followed up or had labs repeated since. She has long standing history of Osteoporosis. Risk factors include early surgical menopause with bilateral oophorectomy at the age of 41. She was treated with Fosamax for 1 year, followed by IV reclast from [id number] (received 4 doses). She does have a history of kidney stones, one episode in the past. Never used steroids or AC, but does use daily PPI for many years. Did have a fragility fracture in 2017 of the R leg/ankle. Menarche age 15, , never breastfed. Menopause age 41 after bilateral oophorectomy. She has lost 1.5 inches of height. She has 0-2 servings of dairy daily in the form of cheese and milk. She takes Calcium 600 mg PO BID daily. Taking Vitamin D 2000 IU daily. She does have a history of Osteoporosis in her family. DXA: 04/07/2021 FINDINGS: AP SPINE L1-L4: Current: BMD 0.703 g/cm2, Z-score -2.5, T-score -4.0, osteoporosis, 2.0% increase from baseline (<5% change is not significant). Baseline: BMD 0.689 g/cm2. LEFT FEMUR, NECK: Current: BMD 0.614 g/cm2, Z-score -1.6, T-score -3.0, osteoporosis. Baseline: BMD 0.618 g/cm2. LEFT FEMUR, TOTAL: Current: BMD 0.706 g/cm2, Z-score -1.2, T-score -2.4, osteopenia, 0.9% increase from baseline (<5% change is not significant). Baseline: BMD 0.700 g/cm2. She never started Tymlos for osteoporosis because co-pay was too high for both Tymlos and Evenity Labs: Laboratory Tests 12/07/20 12/07/20 08:00 08:00 Creatinine 0.77 Estimated GFR > 60 25-OH Vitamin D To alison 40.7 PTH Intact 51 Calcium (PTH Intac t) 9.7 PFSH Medical History Fibromyalgia HLD (hyperlipidemia) HTN (hypertension) Osteoporosis T2DM (type 2 diabetes mellitus) Type 2 diabetes mellitus with hyperglycemia Vitamin D deficiency Surgical History History of kidney stones Hx of hysterectomy Family History Father COPD (chronic obstructive pulmonary disease) Mother Osteoporosis Type 2 diabetes mellitus Social History Household Members: Spouse and Children Household Members Other:: , and adopted son Alcohol intake: former Patient Tobacco Use Status: Never used Tobacco Physical Exam Vital Signs: Last Vital Signs Pulse 119 H 02/09/23 08:20 BP 124/84 02/09/23 08:20 BMI result Body Mass Index 27.2 Absence of Cushingoid features. Absence of acromegalic features. Neck exam reveals nl size thyroid about 15 gms. No thyroid nodules palpable. No carotid bruits present. Lungs CTA. Heart S1 S2, Reg R/R. No M/R/ G. Skin exam reveals absence of vitiligo or acanthosis nigricans. Abdominal exam reveals Soft NT/ND with NA BS. No organomegaly present. Neck Other: . Extrem Other: Visual exam of foot performed. No ulcerations or open lesions. No onchomycosis, no callouses.Pulses 2 + distally Sensation intact to monofilament exam. Vibratory sensation sensed is intact with 128 Hz tuning fork Assessment & Plan Assessment & Plan (1) Type 2 diabetes mellitus with hyperglycemia: Code(s): E11.65 - Type 2 diabetes mellitus with hyperglycemia Plan: This is a 71-year-old female with a history of type 2 diabetes being treated with basal- bolus insulin and Trulicity with glycemic control and no known microvascular or macrovascular complications. Plan is to have the patient continue the current regimen. We will reinitiate Dexcom sensor. I told report any additional hypoglycemia for adjustment of her insulin regimen. Patient follow-up with bookbinder chief question re- initiation of pump. Will also check lipid profile microalbumin to creatinine ratio (2) Osteoporosis: Code(s): M81.0 - Age-related osteoporosis without current pathological fracture Qualifiers: Osteoporosis type: unspecified Presence of current pathological fracture: unspecified Qualified Code(s): M81.0 - Age-related osteoporosis without current pathological fracture Plan: Secondary workup was negative. She has a very low bone density and history of fragility fractures of the right ankle. She had very high risk for fragility fracture in the future. She was approved to get Tymlos or Evenity but co-pay is too high Plan is to continue to get approval or make it affordable for patient to get anabolic therapy like Evenity, Tymlos or Forteo aS patient is a high risk for subsequent fracture anabolic therapy proceeded by anti resorptive therapy is clearly superior Orders: Orders Lipid Panel Today E11.65 - Type 2 diabetes mellitus with hyperglycemia Microalbumin, Random (w Creat) Today E11.65 - Type 2 diabetes mellitus with hyperglycemia Medications: Refilled blood-glucose sensor (Dexcom G7 Sensor device) As directed change every 10 days 3 ea 5RF Coding Level of Care Code Est Pt Level 4 (30934) Diagnoses Type 2 diabetes mellitus with hyperglycemia E11.65 Osteoporosis, unspecified osteoporosis type, unspecified pathological fracture presence M81.0 Osteoporosis type: unspecified Presence of current pathological fracture: unspecified
[2023-02-09 08:35] LABS: Glucose, Whole Blood 91 mg/dL (60-115)
== END 2023-02-09 08:45 | disposition home or self-care (01) ==
PROVIDERS: Visit Provider Internal Medicine Endocrinology, Diabetes & Metabolism
DX: E11.65 Type 2 diabetes mellitus with hyperglycemia (principal); M81.0 Age-related osteoporosis without current pathological fracture
CPT/HCPCS: 99214

== ENCOUNTER → 2023-02-09 08:11 | Outpatient (BNVA) | payer OTHER, SELFPAY | PROVIDERS: Visit Provider Internal Medicine Endocrinology, Diabetes & Metabolism | DX: E11.65 Type 2 diabetes mellitus with hyperglycemia (principal); M81.0 Age-related osteoporosis without current pathological fracture | CPT/HCPCS: 82947; 83036; 99212 ==

== ENCOUNTER 2023-02-09 08:49 | Outpatient (REF) | payer OTHER, SELFPAY ==
[2023-02-09 11:10] LABS: Cholesterol 104 mg/dL (<200); HDL Cholesterol 45 mg/dL (>40); LDL Cholesterol Calculated 49 mg/dL (<100); Triglycerides 51 mg/dL (<150)
[2023-02-09 11:21] LABS: Creatinine Urine 197.78 mg/dL
== END 2023-02-09 08:50 | disposition home or self-care (01) ==
LOC: HO.10HDL 08:49
PROVIDERS: Visit Provider Internal Medicine Endocrinology, Diabetes & Metabolism
DX: E11.65 Type 2 diabetes mellitus with hyperglycemia (principal)
CPT/HCPCS: 36415; 80061; 82043; 82570

== ENCOUNTER 2023-02-27 09:50 | Outpatient (AMB) | payer OTHER, SELFPAY ==
--- NOTE | 2023-02-27 10:19 | MHC.AMDMED ---
Intake Intake Visit Reasons: f/u Type 2 DM and osteoporosis/lvm Dry Cleaning Attendant Required: No Accompanied by: Self / Same As Patient Allergies metformin Allergy (Unknown, Verified 02/09/23 08:34) GI discomfort HPI Comprehensive Diabetes Asmnt Most Recent Diabetes Results: Microalb/Creat Ratio 5.0 ug/mg cr (<30) 02/09/23 Cholesterol 104 mg/dL (<200) 02/09/23 HDL Cholesterol 45 mg/dL (>40) 02/09/23 Triglycerides 51 mg/dL (<150) 02/09/23 PFSH Medical History Fibromyalgia HLD (hyperlipidemia) HTN (hypertension) Osteoporosis T2DM (type 2 diabetes mellitus) Type 2 diabetes mellitus with hyperglycemia Vitamin D deficiency Surgical History History of kidney stones Hx of hysterectomy Family History Father COPD (chronic obstructive pulmonary disease) Mother Osteoporosis Type 2 diabetes mellitus Social History Household Members: Spouse and Children Household Members Other:: , and adopted son Alcohol intake: former Patient Tobacco Use Status: Never used Tobacco Assessment & Plan Assessment & Plan (1) T2DM (type 2 diabetes mellitus): Code(s): E11.9 - Type 2 diabetes mellitus without complications Qualifiers: Diabetes mellitus shelter insulin use: with shelter use Diabetes mellitus complication status: with hyperglycemia Qualified Code(s): E11.65 - Type 2 diabetes mellitus with hyperglycemia; Z79.4 - skilled nursing (current) use of insulin Plan: Reviewed the basic principles of carbohydrate counting.? Insulin to carb ratio, and insulin sensitivity factor calculated based on rule of 450 for insulin to carb ratio, and rule of 1500 for insulin sensitivity factor. Instructed patient on the importance of accurate calculation of the amount of carbs per meal Reviewed how to calculate mealtime bolus with insulin to carb ratio 1:6 Reviewed how to calculate correction dose with insulin sensitivity factor 1:20 Patient's TDD estimate 72 units Insulin to Carbohydrate ratio: Pt reports that desired blood glucose target is 120 mg/dL Pt able to calculated needed insulin based on estimated carbohydrate content Pt demonstrated at visit how to calculate mealtime insulin bolus and correction bolus. Instructed patient that there may need to be adjustment to insulin to carb ratio and sensitivity factor based on blood glucose trends. Pt will review Carb Counting handout provided by [facility] Patient will fill out food/Carbohydrate/insulin dose log as instructed Patient Instructions: Call for Omnipod pump trainng appt when you receive Omnipod 5 starter kit, Pods and Dexcom 6g sensor Coding Level of Care Code Est Pt Level 1 (67058) Diagnoses Type 2 diabetes mellitus with hyperglycemia, with long-term current use of insulin E11.65; Z79.4 Diabetes mellitus shelter insulin use: with extermination supervisor use Diabetes mellitus complication status: with hyperglycemia
== END 2023-02-27 10:42 | disposition home or self-care (01) ==
PROVIDERS: Visit Provider Registered Nurse Diabetes Educator
DX: E11.65 Type 2 diabetes mellitus with hyperglycemia (principal); Z79.4 Long term (current) use of insulin

== ENCOUNTER → 2023-02-27 09:50 | Outpatient (BNVA) | payer OTHER, SELFPAY | PROVIDERS: Visit Provider Registered Nurse Diabetes Educator | DX: E11.65 Type 2 diabetes mellitus with hyperglycemia (principal); Z79.4 Long term (current) use of insulin | CPT/HCPCS: 99211 ==

== ENCOUNTER 2023-03-22 08:00 | Outpatient (AMB) | payer OTHER, SELFPAY ==
--- NOTE | 2023-03-22 10:17 | MHC.AMDMED ---
Intake Intake Visit Reasons: pump training/ CONFIRMED Newspaper Carriers Supervisor Required: No Accompanied by: Self / Same As Patient Allergies metformin Allergy (Unknown, Verified 02/09/23 08:34) GI discomfort HPI Comprehensive Diabetes Asmnt Most Recent Diabetes Results: Hemoglobin A1c 10.7 % 09/16/19 Microalb/Creat Ratio 5.0 ug/mg cr (<30) 02/09/23 Cholesterol 104 mg/dL (<200) 02/09/23 HDL Cholesterol 45 mg/dL (>40) 02/09/23 Triglycerides 51 mg/dL (<150) 02/09/23 Creatinine 0.81 mg/dL (0.5-1.4) 05/26/21 Blood Urea Nitrogen 14 mg/dL (9-16) 05/26/21 Sodium 141 mmol/L (135-145) 05/26/21 Potassium 4.8 mmol/L (3.3-5.1) 05/26/21 Chloride 106 mmol/L (96-108) 05/26/21 Carbon Dioxide 26 mmol/L (22-29) 05/26/21 Calcium 10.1 mg/dL (8.4-10.2) 05/26/21 AST 13 U/L (5-31) 05/26/21 ALT 16 U/L (0-31) 05/26/21 Total Protein 7.4 g/dL (6.5-8.0) 05/26/21 Albumin 4.1 g/dL (3.5-5.0) 05/26/21 [facility] Medical History Fibromyalgia HLD (hyperlipidemia) HTN (hypertension) Osteoporosis T2DM (type 2 diabetes mellitus) Type 2 diabetes mellitus with hyperglycemia Vitamin D deficiency Surgical History History of kidney stones Hx of hysterectomy Family History Father COPD (chronic obstructive pulmonary disease) Mother Osteoporosis Type 2 diabetes mellitus Social History Household Members: Spouse and Children Household Members Other:: , and adopted son Alcohol intake: former Patient Tobacco Use Status: Never used Tobacco Assessment & Plan Assessment & Plan (1) T2DM (type 2 diabetes mellitus): Code(s): E11.9 - Type 2 diabetes mellitus without complications Qualifiers: Diabetes mellitus extermination inspector insulin use: with extermination inspector use Diabetes mellitus complication status: with hyperglycemia Qualified Code(s): E11.65 - Type 2 diabetes mellitus with hyperglycemia; Z79.4 - termite technician (current) use of insulin Plan: Patient presents for pump training for Omnipod 5 with Dexcom G6 The following topics were reviewed today: -Pump therapy basic concepts: Basal/bolus, insulin to carb ratio, correction factor, insulin on board -Device settings: Bluetooth/mobile connection (if applicable), correct date and time, sound volume -CGM settings(if integrated system): CGM graft views and trend arrows, alerts and alarms, Start new sensor ??? High Alert: 250 mg/dl ??? Low Alert: 70 mg/dl Patient left visit with Dexcom G6 sensor still in warmup, instructed patient once sensor is through with warmup, check to be sure transmitter number is working in Omnipod 5 PDM If transmitter is not connected with PDM enter transmitter number into Omnipod 5 PDM Insulin delivery settings Program insulin to carb ratio, correction factor, target blood glucose, suspend or resume insulin delivery, bolus limit and basal limit settings Instructed patient to only use room temperature insulin, how to load cartridge or fill pod, with insulin. Fill tubing and cannula (if applicable) Inserting infusion set or starting pod Troubleshooting after starting new pod or inserting new insulin set: Occlusion, adhesive tape sensitivity, redness Check BG 2 hours after site change Safety information: Importance of a backup plan, for manual injections, proper prescriptions and emergency supplies ketone strips, and rules for testing for ketones Patient was able to insert insulin set today without difficulty. Patient understands the basic concepts of pump therapy, how to give insulin for meals and snacks, how to troubleshoot for hyper and hypoglycemia. Setting verified by CDCES Basal rate(s) (units/hour) : 12 AM to 12 AM? 1.5 units / hr Bolus setting Insulin Carbohydrate Ratio (s) 12 AM to 12 AM? 1:6 Correction Factor / Sensitivity Factor 12 AM to 12 AM? 1:20 Active Insulin Time:? 4 hours Target(s): 12 AM to 12 AM? 120 mg/dL Target threshold: 12 AM to 12 AM? 120 mg/dL Patient will follow up with CDE as instructed Patient will contact CDE with questions or concerns, patient given IT number to support in any technical issues related to insulin pump Patient Instructions: Follow-up with life educator in 1 week Coding Level of Care Code Est Pt Level 1 (99877) Diagnoses Type 2 diabetes mellitus with hyperglycemia, with long-term current use of insulin E11.65; Z79.4 Diabetes mellitus extermination inspector insulin use: with snf use Diabetes mellitus complication status: with hyperglycemia
== END 2023-03-22 10:21 | disposition home or self-care (01) ==
PROVIDERS: Visit Provider Registered Nurse Diabetes Educator
DX: E11.65 Type 2 diabetes mellitus with hyperglycemia (principal); Z79.4 Long term (current) use of insulin

== ENCOUNTER → 2023-03-22 08:00 | Outpatient (BNVA) | payer OTHER, SELFPAY | PROVIDERS: Visit Provider Registered Nurse Diabetes Educator | DX: Z46.81 Encounter for fitting and adjustment of insulin pump (principal); E11.65 Type 2 diabetes mellitus with hyperglycemia | CPT/HCPCS: 99211 ==

== ENCOUNTER 2023-03-29 07:55 | Outpatient (AMB) | payer OTHER, SELFPAY ==
--- NOTE | 2023-03-29 08:18 | MHC.AMDMED ---
Intake Intake Visit Reasons: DM/Confirmed Assistive Technology Specialist Required: No Accompanied by: Self / Same As Patient Allergies metformin Allergy (Unknown, Verified 02/09/23 08:34) GI discomfort HPI Comprehensive Diabetes Asmnt Most Recent Diabetes Results: Microalb/Creat Ratio 5.0 ug/mg cr (<30) 02/09/23 Cholesterol 104 mg/dL (<200) 02/09/23 HDL Cholesterol 45 mg/dL (>40) 02/09/23 Triglycerides 51 mg/dL (<150) 02/09/23 [facility] Medical History Fibromyalgia HLD (hyperlipidemia) HTN (hypertension) Osteoporosis T2DM (type 2 diabetes mellitus) Type 2 diabetes mellitus with hyperglycemia Vitamin D deficiency Surgical History History of kidney stones Hx of hysterectomy Family History Father COPD (chronic obstructive pulmonary disease) Mother Osteoporosis Type 2 diabetes mellitus Social History Household Members: Spouse and Children Household Members Other:: , and adopted son Alcohol intake: former Patient Tobacco Use Status: Never used Tobacco Assessment & Plan Assessment & Plan (1) T2DM (type 2 diabetes mellitus): Code(s): E11.9 - Type 2 diabetes mellitus without complications Qualifiers: Diabetes mellitus terminal superintendent insulin use: with terminal superintendent use Diabetes mellitus complication status: with hyperglycemia Qualified Code(s): E11.65 - Type 2 diabetes mellitus with hyperglycemia; Z79.4 - terminal superintendent (current) use of insulin Plan: Patient presents for pump training for Omnipod 5 with [employer] The following topics were reviewed today: -Pump therapy basic concepts: Basal/bolus, insulin to carb ratio, correction factor, insulin on board -rule of 15s -auto mode verses manual mode ??? High Alert: 250 mg/dl ??? Low Alert: 70 mg/dl Patient's average glucose for the past 2 weeks 108 mg/dL Patient above target 2% Patient at target 94% Patient below target 3% At today's visit demonstrated to patient how to put Omnipod 5 into auto mode. Patient had been in manual mode for the entire week, had some episodes of hypoglycemia. Patient reports she treated hypoglycemia with orange juice Troubleshooting after starting new pod or inserting new insulin set: Occlusion, adhesive tape sensitivity, redness Check BG 2 hours after site change Safety information: Importance of a backup plan, for manual injections, proper prescriptions and emergency supplies ketone strips, and rules for testing for ketones Patient understands the basic concepts of pump therapy, how to give insulin for meals and snacks, how to troubleshoot for hyper and hypoglycemia. Setting verified by CDCES, no changes made to patient's insulin pump settings at today's visit Basal rate(s) (units/hour) : 12 AM to 12 AM? 1.5 units / hr Bolus setting Insulin Carbohydrate Ratio (s) 12 AM to 12 AM? 1:6 Correction Factor / Sensitivity Factor 12 AM to 12 AM? 1:20 Active Insulin Time:? 4 hours Target(s): 12 AM to 12 AM? 120 mg/dL Target threshold: 12 AM to 12 AM? 120 mg/dL Patient will follow up with CDE as instructed Patient will contact CDE with questions or concerns, patient given IT number to support in any technical issues related to insulin pump Coding Level of Care Code Est Pt Level 1 (96445) Diagnoses Type 2 diabetes mellitus with hyperglycemia, with long-term current use of insulin E11.65; Z79.4 Diabetes mellitus senior care insulin use: with senior care use Diabetes mellitus complication status: with hyperglycemia
== END 2023-03-29 08:19 | disposition home or self-care (01) ==
PROVIDERS: Visit Provider Registered Nurse Diabetes Educator
DX: E11.65 Type 2 diabetes mellitus with hyperglycemia (principal); Z79.4 Long term (current) use of insulin

== ENCOUNTER → 2023-03-29 07:55 | Outpatient (BNVA) | payer OTHER, SELFPAY | PROVIDERS: Visit Provider Registered Nurse Diabetes Educator | DX: Z46.81 Encounter for fitting and adjustment of insulin pump (principal); E11.65 Type 2 diabetes mellitus with hyperglycemia; Z79.4 Long term (current) use of insulin | CPT/HCPCS: 99211 ==

== ENCOUNTER 2023-04-03 11:21 | Outpatient (AMB) | payer OTHER, SELFPAY ==
--- NOTE | 2023-04-03 11:51 | A.OFFVIS_ITS ---
Intake Intake Visit Reasons: DM Signal Technician Required: No Accompanied by: Self / Same As Patient Allergies metformin Allergy (Unknown, Verified 02/09/23 08:34) GI discomfort HPI Comprehensive Diabetes Asmnt Most Recent Diabetes Results: Microalb/Creat Ratio 5.0 ug/mg cr (<30) 02/09/23 Cholesterol 104 mg/dL (<200) 02/09/23 HDL Cholesterol 45 mg/dL (>40) 02/09/23 Triglycerides 51 mg/dL (<150) 02/09/23 PFSH Medical History Fibromyalgia HLD (hyperlipidemia) HTN (hypertension) Osteoporosis T2DM (type 2 diabetes mellitus) Type 2 diabetes mellitus with hyperglycemia Vitamin D deficiency Surgical History History of kidney stones Hx of hysterectomy Family History Father COPD (chronic obstructive pulmonary disease) Mother Osteoporosis Type 2 diabetes mellitus Social History Household Members: Spouse and Children Household Members Other:: , and adopted son Alcohol intake: former Patient Tobacco Use Status: Never used Tobacco Assessment & Plan Assessment & Plan (1) T2DM (type 2 diabetes mellitus): Code(s): E11.9 - Type 2 diabetes mellitus without complications Qualifiers: Diabetes mellitus adjunct faculty for medical terminology insulin use: with adjunct faculty for medical terminology use Diabetes mellitus complication status: with hyperglycemia Qualified Code(s): E11.65 - Type 2 diabetes mellitus with hyperglycemia; Z79.4 - [facility] (current) use of insulin Plan: Patient presents for pump training for Omnipod 5 with Dexcom G6 The following topics were reviewed today: -auto mode verses manual mode ??? High Alert: 250 mg/dl ??? Low Alert: 70 mg/dl Patient at visit because her Dexcom G6 sensor has , patient has not been able to pick up driver Dexcom G6 sensors from 03/22/2023 because she needs a PA. Spoke with [facility] pharmacy they report they sent it over on 03/22/2023, we did not receive it asked pharmacist to resend PA so we can complete. Patient given 2nd Dexcom G6 sample sensor. Patient left visit in warmup Troubleshooting after starting new pod or inserting new insulin set: Occlusion, adhesive tape sensitivity, redness Check BG 2 hours after site change Safety information: Importance of a backup plan, for manual injections, proper prescriptions and emergency supplies ketone strips, and rules for testing for ketones Patient understands the basic concepts of pump therapy, how to give insulin for meals and snacks, how to troubleshoot for hyper and hypoglycemia. Setting verified by CDCES, no changes made to patient's insulin pump settings at today's visit Basal rate(s) (units/hour) : 12 AM to 12 AM? 1.5 units / hr Bolus setting Insulin Carbohydrate Ratio (s) 12 AM to 12 AM? 1:6 Correction Factor / Sensitivity Factor 12 AM to 12 AM? 1:20 Active Insulin Time:? 4 hours Target(s): 12 AM to 12 AM? 120 mg/dL Target threshold: 12 AM to 12 AM? 120 mg/dL Patient will follow up with CDE as instructed Patient will contact CDE with questions or concerns, patient given IT number to support in any technical issues related to insulin pump Coding Level of Care Code Est Pt Level 1 (83021) Diagnoses Type 2 diabetes mellitus with hyperglycemia, with long-term current use of insulin E11.65; Z79.4 Diabetes mellitus adjunct faculty for medical terminology insulin use: with long-term use Diabetes mellitus complication status: with hyperglycemia
== END 2023-04-03 11:54 | disposition home or self-care (01) ==
PROVIDERS: Visit Provider Registered Nurse Diabetes Educator
DX: E11.65 Type 2 diabetes mellitus with hyperglycemia (principal); Z79.4 Long term (current) use of insulin

== ENCOUNTER → 2023-04-03 11:21 | Outpatient (BNVA) | payer OTHER, SELFPAY | PROVIDERS: Visit Provider Registered Nurse Diabetes Educator | DX: E11.65 Type 2 diabetes mellitus with hyperglycemia (principal); Z79.4 Long term (current) use of insulin; Z96.41 Presence of insulin pump (external) (internal) | CPT/HCPCS: 99211 ==

== ENCOUNTER 2023-04-27 08:26 | Outpatient (AMB) | payer OTHER, SELFPAY ==
--- NOTE | 2023-04-27 08:45 | MHC.AMDMED ---
Intake Intake Visit Reasons: DM National Sales Associate Required: No Accompanied by: Self / Same As Patient Allergies metformin Allergy (Unknown, Verified 02/09/23 08:34) GI discomfort HPI Comprehensive Diabetes Asmnt Most Recent Diabetes Results: Microalb/Creat Ratio 5.0 ug/mg cr (<30) 02/09/23 Cholesterol 104 mg/dL (<200) 02/09/23 HDL Cholesterol 45 mg/dL (>40) 02/09/23 Triglycerides 51 mg/dL (<150) 02/09/23 PFSH Medical History Fibromyalgia HLD (hyperlipidemia) HTN (hypertension) Osteoporosis T2DM (type 2 diabetes mellitus) Type 2 diabetes mellitus with hyperglycemia Vitamin D deficiency Surgical History History of kidney stones Hx of hysterectomy Family History Father COPD (chronic obstructive pulmonary disease) Mother Osteoporosis Type 2 diabetes mellitus Social History Household Members: Spouse and Children Household Members Other:: , and adopted son Alcohol intake: former Patient Tobacco Use Status: Never used Tobacco Assessment & Plan Assessment & Plan (1) T2DM (type 2 diabetes mellitus): Code(s): E11.9 - Type 2 diabetes mellitus without complications Qualifiers: Diabetes mellitus custodial insulin use: with long lines operator use Diabetes mellitus complication status: with hyperglycemia Qualified Code(s): E11.65 - Type 2 diabetes mellitus with hyperglycemia; Z79.4 - termite renewal inspector (current) use of insulin Plan: Patient presents for pump training for Omnipod 5 with Dexcom G6 The following topics were reviewed today: -Pump therapy basic concepts: Basal/bolus, insulin to carb ratio, correction factor, insulin on board -rule of 15s -auto mode verses manual mode ??? High Alert: 250 mg/dl ??? Low Alert: 70 mg/dl Patient's average glucose for the past 2 weeks 123 mg/dL Patient above target 14% Patient at target 84% Patient below target 2% Patient in manual mode 19% Patient in auto mode 81% Overall patient's glucose control is very good. Patient continues to have a few postprandial hypoglycemia events. Patient reports she treated hypoglycemia with orange juice Patient declined to make changes to pump settings at this visit. Troubleshooting after starting new pod or inserting new insulin set: Occlusion, adhesive tape sensitivity, redness Check BG 2 hours after site change Safety information: Importance of a backup plan, for manual injections, proper prescriptions and emergency supplies ketone strips, and rules for testing for ketones Patient understands the basic concepts of pump therapy, how to give insulin for meals and snacks, how to troubleshoot for hyper and hypoglycemia. Setting verified by CDCES, no changes made to patient's insulin pump settings at today's visit Basal rate(s) (units/hour) : 12 AM to 12 AM? 1.5 units / hr Bolus setting Insulin Carbohydrate Ratio (s) 12 AM to 12 AM? 1:6 Correction Factor / Sensitivity Factor 12 AM to 12 AM? 1:20 Active Insulin Time:? 4 hours Target(s): 12 AM to 12 AM? 120 mg/dL Target threshold: 12 AM to 12 AM? 120 mg/dL Patient will follow up with CDE as instructed Patient will contact CDE with questions or concerns, patient given IT number to support in any technical issues related to insulin pump Patient Instructions: Patient has follow-up with Dr. Hosikns in 05/2023 Coding Level of Care Code Est Pt Level 1 (90301) Diagnoses Type 2 diabetes mellitus with hyperglycemia, with long-term current use of insulin E11.65; Z79.4 Diabetes mellitus custodial insulin use: with custodial use Diabetes mellitus complication status: with hyperglycemia
== END 2023-04-27 08:48 | disposition home or self-care (01) ==
PROVIDERS: Visit Provider Registered Nurse Diabetes Educator
DX: E11.65 Type 2 diabetes mellitus with hyperglycemia (principal); Z79.4 Long term (current) use of insulin

== ENCOUNTER → 2023-04-27 08:26 | Outpatient (BNVA) | payer OTHER, SELFPAY | PROVIDERS: Visit Provider Registered Nurse Diabetes Educator | DX: E11.65 Type 2 diabetes mellitus with hyperglycemia (principal); Z79.4 Long term (current) use of insulin; Z96.41 Presence of insulin pump (external) (internal) | CPT/HCPCS: 99211 ==

== ENCOUNTER 2023-05-09 12:16 | Outpatient (AMB) | payer OTHER, SELFPAY ==
--- NOTE | 2023-05-09 13:05 | MHC.AMDMED ---
Intake Intake Visit Reasons: Omnipod issues Outreach Team Member Required: No Accompanied by: Self / Same As Patient Allergies metformin Allergy (Unknown, Verified 02/09/23 08:34) GI discomfort HPI Comprehensive Diabetes Asmnt Most Recent Diabetes Results: Microalb/Creat Ratio 5.0 ug/mg cr (<30) 02/09/23 Cholesterol 104 mg/dL (<200) 02/09/23 HDL Cholesterol 45 mg/dL (>40) 02/09/23 Triglycerides 51 mg/dL (<150) 02/09/23 [facility] Medical History Fibromyalgia HLD (hyperlipidemia) HTN (hypertension) Osteoporosis T2DM (type 2 diabetes mellitus) Type 2 diabetes mellitus with hyperglycemia Vitamin D deficiency Surgical History History of kidney stones Hx of hysterectomy Family History Father COPD (chronic obstructive pulmonary disease) Mother Osteoporosis Type 2 diabetes mellitus Social History Household Members: Spouse and Children Household Members Other:: , and adopted son Alcohol intake: former Patient Tobacco Use Status: Never used Tobacco Assessment & Plan Assessment & Plan (1) T2DM (type 2 diabetes mellitus): Code(s): E11.9 - Type 2 diabetes mellitus without complications Qualifiers: Diabetes mellitus halfway insulin use: with halfway use Diabetes mellitus complication status: with hyperglycemia Qualified Code(s): E11.65 - Type 2 diabetes mellitus with hyperglycemia; Z79.4 - extermination inspector (current) use of insulin Plan: Patient presents for pump training for Omnipod 5 with Dexcom G6 The following topics were reviewed today: -Pump therapy basic concepts: Basal/bolus, insulin to carb ratio, correction factor, insulin on board Patient is currently off pump. Patient had multiple pods failures, and has now used up supplies pods Called customer service while with patient, customer service is replacing patient's PDM and 1 insulin pod, even though patient has lost 5 pods Instructed patient to make sure she has pods failure to keep failed pods so she can report lot and serial number. Also requested patient's prescription for pods be updated Patient will return on 05/15/2023 to re program PDM Patient will be using [facility] until re-initiation of insulin pump therapy. Patient acknowledges that she has off pump plan for insulin plan Troubleshooting after starting new pod or inserting new insulin set: Occlusion, adhesive tape sensitivity, redness Check BG 2 hours after site change Safety information: Importance of a backup plan, for manual injections, proper prescriptions and emergency supplies ketone strips, and rules for testing for ketones Patient understands the basic concepts of pump therapy, how to give insulin for meals and snacks, how to troubleshoot for hyper and hypoglycemia. Setting verified by CDCES, no changes made to patient's insulin pump settings at today's visit Basal rate(s) (units/hour) : 12 AM to 12 AM? 1.5 units / hr Bolus setting Insulin Carbohydrate Ratio (s) 12 AM to 12 AM? 1:6 Correction Factor / Sensitivity Factor 12 AM to 12 AM? 1:20 Active Insulin Time:? 4 hours Target(s): 12 AM to 12 AM? 120 mg/dL Target threshold: 12 AM to 12 AM? 120 mg/dL Patient will follow up with CDE as instructed Patient will contact CDE with questions or concerns, patient given IT number to support in any technical issues related to insulin pump Coding Level of Care Code Est Pt Level 1 (89246) Diagnoses Type 2 diabetes mellitus with hyperglycemia, with long-term current use of insulin E11.65; Z79.4 Diabetes mellitus terminal manager insulin use: with halfway use Diabetes mellitus complication status: with hyperglycemia
== END 2023-05-09 13:09 | disposition home or self-care (01) ==
PROVIDERS: Visit Provider Registered Nurse Diabetes Educator
DX: E11.65 Type 2 diabetes mellitus with hyperglycemia (principal); Z79.4 Long term (current) use of insulin

== ENCOUNTER → 2023-05-09 12:16 | Outpatient (BNVA) | payer OTHER, SELFPAY | PROVIDERS: Visit Provider Registered Nurse Diabetes Educator | DX: E11.65 Type 2 diabetes mellitus with hyperglycemia (principal); Z79.4 Long term (current) use of insulin | CPT/HCPCS: 99211 ==

== ENCOUNTER → 2023-05-15 13:21 | Outpatient (BNVA) | payer OTHER, SELFPAY | PROVIDERS: Visit Provider Registered Nurse Diabetes Educator | DX: Z46.81 Encounter for fitting and adjustment of insulin pump (principal); E11.65 Type 2 diabetes mellitus with hyperglycemia; Z79.4 Long term (current) use of insulin | CPT/HCPCS: 99211 ==

== ENCOUNTER 2023-06-12 07:56 | Outpatient (AMB) | payer OTHER, SELFPAY ==
[2023-06-12 07:58] VITALS: BP 128/62; PULSE 82; BMI 26.8
--- NOTE | 2023-06-12 07:58 | MHC.OFFVIS ---
Vital Signs 06/12/23 07:58 Height 5 ft 2 in Weight 146 lb 6.191 oz BMI 26.8 BP 128/62 Blood Pressure Location Lt brachial Position Sitting Pulse 82 Pulse Source Pulse Oximeter Intake Visit Reasons: f/u Type 2 DM and osteoporosis-confirmed Intake Note: Patient present today to follow up on Type 2 Diabetes Mellitus. Patient receives DME supplies through: Pharmacy Last Diabetic Eye exam: December 2022 Last Podiatry Visit: Doesn't have one Random Glucose: 163 mg/dl HgA1C: 6.7% Rope Silica Machine Operator Required: No Accompanied by: Self / Same As Patient Allergies metformin Allergy (Unknown, Verified 06/12/23 08:03) GI discomfort HPI Comments Details: 72 YO F with PMHx T2DM, HLD, Osteoporosis who is seen in F/U today for her diabetes and Osteoporosis. In terms of her diabetes, she takes Basaglar 40 units Novolog 12 units prelunch just reduced Trulicity 1.5 mg Qwkly Took metformin -diarrhea Ozempic caused coughing Unfortunately, pt did not bring sensor or glucometer to follow-up visit . Not using pump or sensor Denies Hypoglycemia Not Up-to-date with ophthalmology Had appt 01/18/2023 With regard to osteoporosis: Dr. White note, the patient has been poorly compliant with follow up. She has frequently missed doses of Prolia. She was last due over a year ago and did not follow up for her injection. She saw me in February of 2021 and decision was made to switch her to IV Reclast. Never recived reclast then but tok it in past for 3 -4 yrs . She had a repeat BMD which revealed severe osteoporosis of the spine. We had attempted to contact her for many months to schedule her infusion via telephone and also sent multiple letters. She never responded to us. She now presents for follow up. She was to decide on whether she would get anabolic therapy or resume Prolia. History: She has a history of Osteoporosis due to early menopause. Received first Prolia injection 09/03/18. Received 2nd dose of Prolia 03/06/2019. Third Dose of Prolia 10/29/2019. Tolerated this well. She then cancelled her 4th dose and has not followed up or had labs repeated since. She has long standing history of Osteoporosis. Risk factors include early surgical menopause with bilateral oophorectomy at the age of 41. She was treated with Fosamax for 1 year, followed by IV reclast from [id number] (received 4 doses). She does have a history of kidney stones, one episode in the past. Never used steroids or AC, but does use daily PPI for many years. Did have a fragility fracture in 2017 of the R leg/ankle. Menarche age 15, , never breastfed. Menopause age 41 after bilateral oophorectomy. She has lost 1.5 inches of height. She has 0-2 servings of dairy daily in the form of cheese and milk. She takes Calcium 600 mg PO BID daily. Taking Vitamin D 2000 IU daily. She does have a history of Osteoporosis in her family. DXA: 04/07/2021 FINDINGS: AP SPINE L1-L4: Current: BMD 0.703 g/cm2, Z-score -2.5, T-score -4.0, osteoporosis, 2.0% increase from baseline (<5% change is not significant). Baseline: BMD 0.689 g/cm2. LEFT FEMUR, NECK: Current: BMD 0.614 g/cm2, Z-score -1.6, T-score -3.0, osteoporosis. Baseline: BMD 0.618 g/cm2. LEFT FEMUR, TOTAL: Current: BMD 0.706 g/cm2, Z-score -1.2, T-score -2.4, osteopenia, 0.9% increase from baseline (<5% change is not significant). Baseline: BMD 0.700 g/cm2. She never started Tymlos for osteoporosis because co-pay was too high for both Tymlos and Evenity Labs: Laboratory Tests 12/07/20 12/07/20 08:00 08:00 Creatinine 0.77 Estimated GFR > 60 25-OH Vitamin D Total 40.7 PTH Intact 51 Calcium (PTH Intact) 9.7 Never proceeded with anabolic PFSH Medical History Fibromyalgia HLD (hyperlipidemia) HTN (hypertension) Osteoporosis T2DM (type 2 diabetes mellitus) Type 2 diabetes mellitus with hyperglycemia Vitamin D deficiency Surgical History History of kidney stones Hx of hysterectomy Family History Father COPD (chronic obstructive pulmonary disease) Mother Osteoporosis Type 2 diabetes mellitus Social History Household Members: Spouse and Children Household Members Other:: , and adopted son Alcohol intake: former Patient Tobacco Use Status: Never used Tobacco Physical Exam Vital Signs: Last Vital Signs Pulse 82 06/12/23 07:58 BP 128/62 06/12/23 07:58 BMI result Body Mass Index 26.8 Absence of Cushingoid features. Absence of acromegalic features. Neck exam reveals nl size thyroid about 15 gms. No thyroid nodules palpable. No carotid bruits present. Lungs CTA. Heart S1 S2, Reg R/R. No M/R/ G. Skin exam reveals absence of vitiligo or acanthosis nigricans. Abdominal exam reveals Soft NT/ND with NA BS. No organomegaly present. Neck Other: . Extrem Other: Visual exam of foot performed. No ulcerations or open lesions. No onchomycosis, no callouses.Pulses 2 + distally Sensation intact to monofilament exam. Vibratory sensation sensed is intact with 128 Hz tuning fork Results AMB Hemoglobin A1c AMB Hemoglobin A1c 6.7 % Last Edit by SOUMYA Funes on 06/12/23 08:15 Results Reviewed Results Reviewed: Laboratory Last Values Glucose (Clinic) 163 mg/dL (60-115) H 06/12/23 08:06 Assessment & Plan Assessment & Plan (1) Type 2 diabetes mellitus with hyperglycemia: Code(s): E11.65 - Type 2 diabetes mellitus with hyperglycemia Category: Medical Plan: This is a 72 -year-old female with a history of type 2 diabetes being treated with basal- bolus insulin and Trulicity with excellent glycemic control and no known microvascular or macrovascular complications. Plan is to have the patient continue the current regimen. We will reinitiate Dexcom sensor. She is also going to reinitate the Omniopd 5 . She is meeting with the CDE this morning. (2) Osteoporosis: Code(s): M81.0 - Age-related osteoporosis without current pathological fracture Category: Medical Qualifiers: Osteoporosis type: unspecified Presence of current pathological fracture: unspecified Qualified Code(s): M81.0 - Age-related osteoporosis without current pathological fracture Plan: Secondary workup was negative. She has a very low bone density and history of fragility fractures of the right ankle. She had very high risk for fragility fracture in the future. She was approved to get Tymlos or Evenity but co-pay is too high Plan is to continue to get approval or make it affordable for patient to get anabolic therapy like Evenity, Tymlos or Forteo aS patient is a high risk for subsequent fracture anabolic therapy proceeded by anti resorptive therapy is clearly superior Orders: Orders AMB Hemoglobin A1c Today E11.65 - Type 2 diabetes mellitus with hyperglycemia, Z13.9 - Encounter for screening, unspecified
[2023-06-12 08:10] LABS: Glucose, Whole Blood 163 mg/dL (60-115)
== END 2023-06-12 09:15 | disposition home or self-care (01) ==
PROVIDERS: Visit Provider Internal Medicine Endocrinology, Diabetes & Metabolism
DX: E11.65 Type 2 diabetes mellitus with hyperglycemia (principal); M81.0 Age-related osteoporosis without current pathological fracture; Z13.9 Encounter for screening, unspecified
CPT/HCPCS: 99214

== ENCOUNTER → 2023-06-12 07:56 | Outpatient (BNVA) | payer OTHER, SELFPAY | PROVIDERS: Visit Provider Internal Medicine Endocrinology, Diabetes & Metabolism | DX: E11.65 Type 2 diabetes mellitus with hyperglycemia (principal); M81.0 Age-related osteoporosis without current pathological fracture; Z79.4 Long term (current) use of insulin | CPT/HCPCS: 82947; 83036; 99211; 99212 ==

== ENCOUNTER 2023-06-12 09:17 | Outpatient (AMB) | payer OTHER, SELFPAY ==
--- NOTE | 2023-06-12 08:43 | MHC.AMDMED ---
Intake Intake Visit Reasons: DM Hadoop Consultant Required: No Accompanied by: Self / Same As Patient Allergies metformin Allergy (Unknown, Verified 06/12/23 08:03) GI discomfort HPI Comprehensive Diabetes Asmnt Most Recent Diabetes Results: Hemoglobin A1c 10.7 % 09/16/19 Microalb/Creat Ratio 5.0 ug/mg cr (<30) 02/09/23 Cholesterol 104 mg/dL (<200) 02/09/23 HDL Cholesterol 45 mg/dL (>40) 02/09/23 Triglycerides 51 mg/dL (<150) 02/09/23 Creatinine 0.81 mg/dL (0.5-1.4) 05/26/21 Blood Urea Nitrogen 14 mg/dL (9-16) 05/26/21 Sodium 141 mmol/L (135-145) 05/26/21 Potassium 4.8 mmol/L (3.3-5.1) 05/26/21 Chloride 106 mmol/L (96-108) 05/26/21 Carbon Dioxide 26 mmol/L (22-29) 05/26/21 Calcium 10.1 mg/dL (8.4-10.2) 05/26/21 AST 13 U/L (5-31) 05/26/21 ALT 16 U/L (0-31) 05/26/21 Total Protein 7.4 g/dL (6.5-8.0) 05/26/21 Albumin 4.1 g/dL (3.5-5.0) 05/26/21 [facility] Medical History Fibromyalgia HLD (hyperlipidemia) HTN (hypertension) Osteoporosis T2DM (type 2 diabetes mellitus) Type 2 diabetes mellitus with hyperglycemia Vitamin D deficiency Surgical History History of kidney stones Hx of hysterectomy Family History Father COPD (chronic obstructive pulmonary disease) Mother Osteoporosis Type 2 diabetes mellitus Social History Household Members: Spouse and Children Household Members Other:: , and adopted son Alcohol intake: former Patient Tobacco Use Status: Never used Tobacco Assessment & Plan Assessment & Plan (1) T2DM (type 2 diabetes mellitus): Code(s): E11.9 - Type 2 diabetes mellitus without complications Qualifiers: Diabetes mellitus intermodal truck driver insulin use: with senior living use Diabetes mellitus complication status: with hyperglycemia Qualified Code(s): E11.65 - Type 2 diabetes mellitus with hyperglycemia; Z79.4 - continuous churn buttermaker (current) use of insulin Plan: Patient presents for pump training for Omnipod 5 with Dexcom G6 The following topics were reviewed today: Omnipod user name: Katie Password:[email or web address] Pin:[id number] ??? High Alert: 250 mg/dl ??? Low Alert: 70 mg/dl Programmed settings into new PDM at today's visit Troubleshooting after starting new pod or inserting new insulin set: Occlusion, adhesive tape sensitivity, redness Check BG 2 hours after site change Safety information: Importance of a backup plan, for manual injections, proper prescriptions and emergency supplies ketone strips, and rules for testing for ketones Patient understands the basic concepts of pump therapy, how to give insulin for meals and snacks, how to troubleshoot for hyper and hypoglycemia. Setting verified by CDCES, no changes made to patient's insulin pump settings at today's visit Basal rate(s) (units/hour) : 12 AM to 12 AM? 1.5 units / hr Bolus setting Insulin Carbohydrate Ratio (s) 12 AM to 12 AM? 1:6 Correction Factor / Sensitivity Factor 12 AM to 12 AM? 1:20 Active Insulin Time:? 4 hours Target(s): 12 AM to 12 AM? 120 mg/dL Target threshold: 12 AM to 12 AM? 120 mg/dL Patient will follow up with CDE as instructed Patient will contact CDE with questions or concerns, patient given IT number to support in any technical issues related to insulin pump Patient Instructions: Patient has follow-up appointment in July Coding Level of Care Code Est Pt Level 1 (21386) Diagnoses Type 2 diabetes mellitus with hyperglycemia, with long-term current use of insulin E11.65; Z79.4 Diabetes mellitus senior living insulin use: with senior living use Diabetes mellitus complication status: with hyperglycemia
== END 2023-06-12 09:42 | disposition home or self-care (01) ==
LOC: HO.ENCR 09:17
PROVIDERS: Visit Provider Registered Nurse Diabetes Educator
DX: E11.65 Type 2 diabetes mellitus with hyperglycemia (principal); Z79.4 Long term (current) use of insulin

== ENCOUNTER 2023-08-31 08:23 | Outpatient (AMB) | payer OTHER, SELFPAY ==
--- NOTE | 2023-08-31 08:28 | A.OFFVIS_ITS ---
Vital Signs 08/31/23 08:29 Height 5 ft 2 in Weight 143 lb 4.807 oz BMI 26.2 BP 124/66 Blood Pressure Location Rt brachial Position Sitting Pulse 85 Pulse Source Pulse Oximeter Intake Visit Reasons: F/U DM 2/Osteoporosis/CONFIRMED Intake Note: New Patient presents today to established treatment for Diabetes Type 2: Most recent Eye Exam: DUE Most recent Podiatry Exam: Does not see a Watch And Clock Maker And Repairer Most recent HbA1c: 5.9%, Random Glucose- 119mg/dL, Today Machine Filler Servicer Required: No Accompanied by: Self / Same As Patient Allergies metformin Allergy (Unknown, Verified 06/12/23 08:03) GI discomfort HPI Comments Details: Basal rate(s) (units/hour) : 12 AM to 12 AM? 1.5 units / hr Bolus setting Insulin Carbohydrate Ratio (s) 12 AM to 12 AM? 1:6 Correction Factor / Sensitivity Factor 12 AM to 12 AM? 1:20 Active Insulin Time:? 4 hours Target(s): 12 AM to 12 AM? 120 mg/dL Target threshold: 12 AM to 12 AM? 120 mg/dL PFSH Medical History Fibromyalgia HLD (hyperlipidemia) HTN (hypertension) Osteoporosis T2DM (type 2 diabetes mellitus) Type 2 diabetes mellitus with hyperglycemia Vitamin D deficiency Surgical History History of kidney stones Hx of hysterectomy Family History Father COPD (chronic obstructive pulmonary disease) Mother Osteoporosis Type 2 diabetes mellitus Social History Household Members: Spouse and Children Household Members Other:: , and adopted son Alcohol intake: former Patient Tobacco Use Status: Never used Tobacco Physical Exam Vital Signs: Last Vital Signs Pulse 85 08/31/23 08:29 BP 124/66 08/31/23 08:29 BMI result Body Mass Index 26.2 Results AMB Hemoglobin A1c AMB Hemoglobin A1c 5.9 % Last Edit by SOUMYA Saini on 08/31/23 09:20 Results Reviewed Results Reviewed: Laboratory Last Values Glucose (Clinic) 119 mg/dL (60-115) H 08/31/23 08:35 Assessment & Plan Assessment & Plan (1) T2DM (type 2 diabetes mellitus): Code(s): E11.9 - Type 2 diabetes mellitus without complications Category: Medical Qualifiers: Diabetes mellitus terminal clerk insulin use: with longterm use Diabetes mellitus complication status: with hyperglycemia Qualified Code(s): E11.65 - Type 2 diabetes mellitus with hyperglycemia; Z79.4 - buttermaker (current) use of insulin Plan: Diabetes in excellent control. No changes to pump settings today. Ketone test strips were sent today. Teaching done today: Symptoms of DKA were reviewed: early: frequent urination, dry mouth, ketones in the urine, severe symptoms: abdominal pain, nausea, vomiting and weakness. It is important to hydrate with sugar free liquids every 30 minutes and bring the sugars down to normal levels. The patient was counseled to always carry a source of sugar and on the rule of 15's: Take 3 glucose tablets and repeat again in 15 minutes if blood sugar is not in normal range. Continue to repeat every 15 minutes until blood sugar is normal. High glucose pump protocol reviewed Traveling with diabetes, pump failure backup plan Lantus 30 units patient will check to see if she has unexplained insulin at home. To will refer to Podiatry (2) Osteoporosis: Code(s): M81.0 - Age-related osteoporosis without current pathological fracture Category: Medical Qualifiers: Osteoporosis type: unspecified Presence of current pathological fracture: unspecified Qualified Code(s): M81.0 - Age-related osteoporosis without current pathological fracture Plan: Due for DEXA, ordered today. Patient was given prescription for Evenity in the contact number to determine if she could get assistance with the higher co-pay. She will check on that over the next week and if ineligible for support will need to restart Prolia. Fall precautions reviewed, weight-bearing exercise encouraged, continue with current calcium and vitamin-D supplementation as prescribed. Patient is taking this on a regular basis. Orders: Orders XR DEXA axial skeleton Today M81.0 - Age-related osteoporosis without current pathological fracture Calcium 1 Month M81.0 - Age-related osteoporosis without current pathological fracture Thyroid Stimulating Hormone Today E11.65 - Type 2 diabetes mellitus with hyperglycemia, Z79.4 - buttermaker (current) use of insulin Phosphorus Today E11.65 - Type 2 diabetes mellitus with hyperglycemia, Z79.4 - buttermaker (current) use of insulin Parathyroid Hormone Intact Today E11.65 - Type 2 diabetes mellitus with hyperglycemia, Z79.4 - [facility] (current) use of insulin AMB Hemoglobin A1c Today E11.9 - Type 2 diabetes mellitus without complications XR DEXA vertrebral fracture Today M81.0 - Age-related osteoporosis without current pathological fracture Albumin Level 1 Month M81.0 - Age-related osteoporosis without current pathological fracture Collagen Type I C-Telopeptide 1 Month M81.0 - Age-related osteoporosis without current pathological fracture Free T4 (Free Thyroxine) Today E11.65 - Type 2 diabetes mellitus with hyperglycemia, Z79.4 - buttermaker (current) use of insulin Vitamin D 25-OH Total Today E11.65 - Type 2 diabetes mellitus with hyperglycemia, Z79.4 - buttermaker (current) use of insulin Referrals Podiatry Referral E11.65 - Type 2 diabetes mellitus with hyperglycemia, Z79.4 - buttermaker (current) use of insulin Medications: New acetone (urine) test (Ketone Urine Test strips) As directed 25 ea 1RF prn glucose over 250 E11.65 - Type 2 diabetes mellitus with hyperglycemia, Z79.4 - [facility] (current) use of insulin insulin glargine (Lantus Solostar U-100 Insulin) 30 units (0.3 mL) subcut QPM 30 days PRN 3 mL 1RF pump failure Discontinued insulin glargine (Lantus Solostar U-100 Insulin) Discontinued Reason: Doctor's Order 46 units (0.46 mL) subcut DAILY 45 mL 5RF Coding Level of Care Code Est Pt Level 4 (16417) Complex EM visit Add On G2211 Diagnoses Type 2 diabetes mellitus with hyperglycemia, with long-term current use of insulin E11.65; Z79.4 Diabetes mellitus longterm insulin use: with longterm use Diabetes mellitus complication status: with hyperglycemia Osteoporosis, unspecified osteoporosis type, unspecified pathological fracture presence M81.0 Osteoporosis type: unspecified Presence of current pathological fracture: unspecified
[2023-08-31 08:29] VITALS: BP 124/66; PULSE 85; BMI 26.2
[2023-08-31 08:40] LABS: Glucose, Whole Blood 119 mg/dL (60-115)
== END 2023-08-31 09:05 | disposition home or self-care (01) ==
PROVIDERS: Visit Provider Nurse Practitioner Adult Health
DX: E11.65 Type 2 diabetes mellitus with hyperglycemia (principal); Z79.4 Long term (current) use of insulin; M81.0 Age-related osteoporosis without current pathological fracture; E11.9 Type 2 diabetes mellitus without complications
CPT/HCPCS: 99214; G2211

== ENCOUNTER → 2023-08-31 08:23 | Outpatient (BNVA) | payer OTHER, SELFPAY | PROVIDERS: Visit Provider Nurse Practitioner Adult Health | DX: E11.65 Type 2 diabetes mellitus with hyperglycemia (principal); M81.0 Age-related osteoporosis without current pathological fracture; Z79.4 Long term (current) use of insulin; Z96.41 Presence of insulin pump (external) (internal) | CPT/HCPCS: 82947; 83036; 99212 ==

== ENCOUNTER 2023-09-21 07:48 | Outpatient (REF) | payer OTHER, SELFPAY ==
--- NOTE | ~2023-09-21 | MM_ITS ---
EXAMINATION: BONE DENSITOMETRY CLINICAL INDICATION: Osteoporosis. COMPARISON: Previous BD dated 04/07/2021 and baseline BD dated 03/30/2018. TECHNIQUE: Using a [employer] DXA System (software version: 13.1) manufactured by [employer], dual-energy x-ray absorptiometry was performed of the lumbar spine and left hip. The images are of good technical quality. Summary results are attached. FINDINGS: LEFT FEMUR, NECK: Current: BMD 0.581 g/cm2, Z-score -1.5, T-score -3.3, osteoporosis. Prior: BMD 0.614 g/cm2. Baseline: BMD 0.618 g/cm2. LEFT FEMUR, TOTAL: Current: BMD 0.666 g/cm2, Z-score -1.2, T-score -2.7, osteoporosis, 5.7% decrease from previous, 4.9% decrease from baseline (<5% change is not significant). Prior: BMD 0.706 g/cm2. Baseline: BMD 0.700 g/cm2. AP SPINE L1-L4: Current: BMD 0.597 g/cm2, Z-score -3.1, T-score -4.9, osteoporosis, 15.1% decrease from previous, 13.4% decrease from baseline (<5% change is not significant). Prior: BMD 0.703 g/cm2. Baseline: BMD 0.689 g/cm2. IDENTIFIED RISK FACTORS: Early menopause, height loss, bilateral oophorectomy, history of fracture (adult), hysterectomy, osteoporosis, secondary osteoporosis. HISTORY OF FRACTURE: Other. MEDICATIONS: Calcium, vitamin D. MM/XR DEXA axial skeleton IMPRESSION: 1. DIAGNOSIS: Osteoporosis based on the lowest T-score value of -4.9 in the lumbar spine applying World Health Organization criteria. 2. 10-YEAR FRACTURE RISK PREDICTION, FRAX: According to the guidelines, FRAX calculation should only be performed on patients in the osteopenia bone density category. Therefore, FRAX was not performed on this patient. 3. Treatment Recommendations: NOF guidelines recommend consideration for treatment in postmenopausal women and men age 50 and older presenting with the following: -A hip or vertebral (clinical or morphometric) fracture. -T-score less than or equal to -2.5 at the femoral neck or spine after appropriate evaluation to exclude secondary causes. -Low bone mass at the hip or spine and a 10-year fracture probability by FRAX of greater than or equal to 3% for hip fracture or greater than or equal to 20% for major osteoporotic fracture based on the [place] adapted WHO algorithm. 4. Other Recommendations: All treatment decisions require clinical judgment and consideration of individual patient factors, including patient preferences, comorbidities, previous drug use, risk factors not captured in the FRAX model (e.g. frailty, falls, vitamin D deficiency, increased bone turnover, interval significant decline in bone density) and possible under or overestimation of fracture risk by FRAX. Additional medical evaluation for secondary cause of low bone mineral density may be appropriate. FUTURE SCAN RECOMMENDATION: People with diagnosed cases of osteoporosis or at high risk for fracture should have regular bone mineral density tests. For patients eligible for Medicare, routine testing is allowed once every 2 years. The testing frequency can be increased to one year for patients who have rapidly progressing disease, those who are receiving or discontinuing medical therapy to restore bone mass, or have additional risk factors.
--- NOTE | ~2023-09-21 | MM_ITS ---
EXAMINATION: MM SCREENING DIGITAL BREAST TOMOSYNTHESIS, BILATERAL CLINICAL INFORMATION: Screening. Asymptomatic. COMPARISON: Mammography: This study is compared with prior exams dating back to 2019. TECHNIQUE: Digital breast tomosynthesis is performed in both the craniocaudal and mediolateral oblique views along with computer-aided detection (CAD). Synthesized 2D images are generated from the tomosynthesis. FINDINGS: The breasts are heterogeneously dense, which may obscure small masses (ACR BI-RADS breast composition Category c). There are no significant masses, abnormal calcifications, or other abnormalities. Few, unchanged, benign calcifications are present in the right breast. MM/MM tomosynthesis screening BI IMPRESSION: No mammographic evidence of malignancy. ASSESSMENT: BI-RADS BI-RADS 2 - Benign Findings RECOMMENDATION: Routine annual mammography screening. 1 year F/U This examination should not preclude the clinical evaluation of a suspicious palpable abnormality. This patient's information was entered into a reminder system with a target due date for their next mammogram. Electronically signed by: Lisa Hernandez MD 10/16/2023 02:47 AM EDT
== END 2023-09-21 07:49 | disposition home or self-care (01) ==
LOC: HO.MAMMO 07:48
PROVIDERS: PCP Nurse Practitioner Family; Visit Provider Nurse Practitioner Family
DX: Z12.31 Encounter for screening mammogram for malignant neoplasm of breast (principal); M81.0 Age-related osteoporosis without current pathological fracture
CPT/HCPCS: 77063; 77067; 77080

== ENCOUNTER → 2023-09-21 08:00 | Outpatient (BNV) | payer OTHER, SELFPAY | PROVIDERS: PCP Nurse Practitioner Family; Visit Provider Radiology Diagnostic Radiology | DX: Z12.31 Encounter for screening mammogram for malignant neoplasm of breast (principal) | CPT/HCPCS: 77063; 77067 ==

== ENCOUNTER 2023-10-11 07:44 | Outpatient (AMB) | payer OTHER, SELFPAY ==
--- NOTE | 2023-10-11 08:16 | A.OFFVIS_ITS ---
Intake Intake Visit Reasons: Pump adjustment-confirmed Simulation Software Engineer Required: No Accompanied by: Self / Same As Patient Allergies metformin Allergy (Unknown, Verified 06/12/23 08:03) GI discomfort HPI Comprehensive Diabetes Asmnt Most Recent Diabetes Results: Hemoglobin A1c 10.7 % 09/16/19 Microalb/Creat Ratio 5.0 ug/mg cr (<30) 02/09/23 Cholesterol 104 mg/dL (<200) 02/09/23 HDL Cholesterol 45 mg/dL (>40) 02/09/23 Triglycerides 51 mg/dL (<150) 02/09/23 Creatinine 0.81 mg/dL (0.5-1.4) 05/26/21 Blood Urea Nitrogen 14 mg/dL (9-16) 05/26/21 Sodium 141 mmol/L (135-145) 05/26/21 Potassium 4.8 mmol/L (3.3-5.1) 05/26/21 Chloride 106 mmol/L (96-108) 05/26/21 Carbon Dioxide 26 mmol/L (22-29) 05/26/21 Calcium 10.1 mg/dL (8.4-10.2) 05/26/21 AST 13 U/L (5-31) 05/26/21 ALT 16 U/L (0-31) 05/26/21 Total Protein 7.4 g/dL (6.5-8.0) 05/26/21 Albumin 4.1 g/dL (3.5-5.0) 05/26/21 [facility] Medical History Fibromyalgia HLD (hyperlipidemia) HTN (hypertension) Osteoporosis T2DM (type 2 diabetes mellitus) Type 2 diabetes mellitus with hyperglycemia Vitamin D deficiency Surgical History History of kidney stones Hx of hysterectomy Family History Father COPD (chronic obstructive pulmonary disease) Mother Osteoporosis Type 2 diabetes mellitus Social History Household Members: Spouse and Children Household Members Other:: , and adopted son Alcohol intake: former Patient Tobacco Use Status: Never used Tobacco Assessment & Plan Assessment & Plan (1) T2DM (type 2 diabetes mellitus): Code(s): E11.9 - Type 2 diabetes mellitus without complications Qualifiers: Diabetes mellitus skilled nursing insulin use: with skilled nursing use Diabetes mellitus complication status: with hyperglycemia Qualified Code(s): E11.65 - Type 2 diabetes mellitus with hyperglycemia; Z79.4 - alf (current) use of insulin Plan: Patient presents for pump training for Omnipod 5 with Dexcom G6 The following topics were reviewed today: Omnipod user name: Katie Password:[email or web address] Pin:[id number] ??? High Alert: 250 mg/dl ??? Low Alert: 70 mg/dl CGM: Average glucose for the past 2 weeks 124 mg/dL Above target: 3% At target: 95% Below target: 2% Pump info: Basal: 40% Bolus 60% Patient in auto mode 100% TDD:14 units Patient had 1 day of significant hypoglycemia, patient reported she had to treat consistently with fruit juice, breakfast cereal. After review pump data patient's pump is suspending short times throughout the day, patient also reports she is going to the gym 3 days a week with her . Reviewed how to use activity mode when she is at gym, suggested she set up activity mode to start 30 minutes before the gym, and to stay active 60 minutes after exercise Safety information: Patient understands the basic concepts of pump therapy, how to give insulin for meals and snacks, how to troubleshoot for hyper and hypoglycemia. Setting verified by CDCES, see changes made to patient's insulin pump settings at today's visit Basal rate(s) (units/hour) : 12 AM to 12 AM? 1.5 units / hr Bolus setting Insulin Carbohydrate Ratio (s) 12 AM to 12 AM? 1:7 New 12 AM to 12 AM? 1:8 Correction Factor / Sensitivity Factor 12 AM to 12 AM? 1:20 Active Insulin Time:? 4 hours Target(s): 12 AM to 12 AM? 130 mg/dL Target threshold: 12 AM to 12 AM? 130 mg/dL Patient will follow up with CDE as instructed Patient will contact CDE with questions or concerns, patient given IT number to support in any technical issues related to insulin pump Patient Instructions: Patient has follow-up with [facility] in 2 months Patient will follow-up with primary special educator in 4 months If patient has questions or concerns she will contact primary special educator a provider Coding Level of Care Code Est Pt Level 1 (65770) Diagnoses Type 2 diabetes mellitus with hyperglycemia, with long-term current use of insulin E11.65; Z79.4 Diabetes mellitus skilled nursing insulin use: with skilled nursing use Diabetes mellitus complication status: with hyperglycemia
== END 2023-10-11 08:21 | disposition home or self-care (01) ==
PROVIDERS: PCP Nurse Practitioner Family; Visit Provider Registered Nurse Diabetes Educator
DX: E11.65 Type 2 diabetes mellitus with hyperglycemia (principal); Z79.4 Long term (current) use of insulin

== ENCOUNTER → 2023-10-11 07:44 | Outpatient (BNVA) | payer OTHER, SELFPAY | PROVIDERS: PCP Nurse Practitioner Family; Visit Provider Registered Nurse Diabetes Educator | DX: E11.65 Type 2 diabetes mellitus with hyperglycemia (principal); Z79.4 Long term (current) use of insulin; Z96.41 Presence of insulin pump (external) (internal); Z46.81 Encounter for fitting and adjustment of insulin pump | CPT/HCPCS: 99211 ==

== ENCOUNTER 2023-11-14 09:29 | Outpatient (REF) | payer OTHER, SELFPAY ==
[2023-11-14 10:37] LABS: Parathyroid Hormone Intact 39.6 pg/mL (8.7-77.1)
[2023-11-14 10:49] LABS: Albumin Level 4.1 g/dL (3.5-5.0); Calcium 9.5 mg/dL (8.4-10.2); Phosphorus 4.2 mg/dL (2.7-4.5)
[2023-11-14 10:53] LABS: Free T4 (Free Thyroxine) 0.99 ng/dL (0.71-1.85); Thyroid Stimulating Hormone 0.57 uIU/mL (0.32-4.0); Vitamin D 25-OH Total 46.5 ng/mL (>30)
[2023-11-16 00:13] LABS: HCV Log PCR <1.18 NOT DETECTED Log IU/mL (NOT DETECTED); HepC Viral Load <15 NOT DETECTED IU/mL (NOT DETECTED)
[2023-11-18 08:33] LABS: Collagen Type I C-Telopeptide 331 pg/mL (see note)
== END 2023-11-14 09:30 | disposition home or self-care (01) ==
LOC: HO.LAB 09:29
PROVIDERS: PCP Nurse Practitioner Family; Visit Provider Nurse Practitioner Adult Health
DX: Z00.00 Encounter for general adult medical examination without abnormal findings (principal); M81.0 Age-related osteoporosis without current pathological fracture; Z79.4 Long term (current) use of insulin; E11.65 Type 2 diabetes mellitus with hyperglycemia
CPT/HCPCS: 36415; 82040; 82306; 82310; 82523; 83970; 84100; 84439; 84443; 87522

== ENCOUNTER 2023-11-30 07:42 | Outpatient (AMB) | payer OTHER, SELFPAY ==
--- NOTE | 2023-11-30 07:06 | A.OFFVIS_ITS ---
Intake Visit Reasons: F/U DM 2/Osteoporosis/CONFIRMED Allergies metformin Allergy (Unknown, Verified 06/12/23 08:03) GI discomfort HPI Comments Details: 72 YO F with PMHx T2DM, HLD, Osteoporosis who is seen in F/U today for her diabetes and Osteoporosis. In terms of her diabetes, she takes Basaglar 40 units Novolog 12 units prelunch just reduced Trulicity 1.5 mg Qwkly Took metformin -diarrhea Ozempic caused coughing Unfortunately, pt did not bring sensor or glucometer to follow-up visit . Not using pump or sensor Denies Hypoglycemia Not Up-to-date with ophthalmology Had appt 01/18/2023 With regard to osteoporosis: Dr. White note, the patient has been poorly compliant with follow up. She has frequently missed doses of Prolia. She was last due over a year ago and did not follow up for her injection. She saw me in February of 2021 and decision was made to switch her to IV Reclast. Never recived reclast then but tok it in past for 3 -4 yrs . She had a repeat BMD which revealed severe osteoporosis of the spine. We had attempted to contact her for many months to schedule her infusion via telephone and also sent multiple letters. She never responded to us. She now presents for follow up. She was to decide on whether she would get anabolic therapy or resume Prolia. History: She has a history of Osteoporosis due to early menopause. Received first Prolia injection 09/03/18. Received 2nd dose of Prolia 03/06/2019. Third Dose of Prolia 10/29/2019. Tolerated this well. She then cancelled her 4th dose and has not followed up or had labs repeated since. She has long standing history of Osteoporosis. Risk factors include early surgical menopause with bilateral oophorectomy at the age of 41. She was treated with Fosamax for 1 year, followed by IV reclast from 9877-8795 (received 4 doses). She does have a history of kidney stones, one episode in the past. Never used steroids or AC, but does use daily PPI for many years. Did have a fragility fracture in 2017 of the R leg/ankle. Menarche age 15, , never breastfed. Menopause age 41 after bilateral oophorectomy. She has lost 1.5 inches of height. She has 0-2 servings of dairy daily in the form of cheese and milk. She takes Calcium 600 mg PO BID daily. Taking Vitamin D 2000 IU daily. She does have a history of Osteoporosis in her family. DXA: 04/07/2021 FINDINGS: AP SPINE L1-L4: Current: BMD 0.703 g/cm2, Z-score -2.5, T-score -4.0, osteoporosis, 2.0% increase from baseline (<5% change is not significant). Baseline: BMD 0.689 g/cm2. LEFT FEMUR, NECK: Current: BMD 0.614 g/cm2, Z-score -1.6, T-score -3.0, osteoporosis. Baseline: BMD 0.618 g/cm2. LEFT FEMUR, TOTAL: Current: BMD 0.706 g/cm2, Z-score -1.2, T-score -2.4, osteopenia, 0.9% increase from baseline (<5% change is not significant). Baseline: BMD 0.700 g/cm2. She never started Tymlos for osteoporosis because co-pay was too high for both Tymlos and Evenity [facility] Medical History Fibromyalgia HLD (hyperlipidemia) HTN (hypertension) Osteoporosis T2DM (type 2 diabetes mellitus) Type 2 diabetes mellitus with hyperglycemia Vitamin D deficiency Surgical History History of kidney stones Hx of hysterectomy Family History Father COPD (chronic obstructive pulmonary disease) Mother Osteoporosis Type 2 diabetes mellitus Social History Household Members: Spouse and Children Household Members Other:: , and adopted son Alcohol intake: former Patient Tobacco Use Status: Never used Tobacco Assessment & Plan Assessment & Plan Medications: Refilled blood-glucose sensor As directed change every 10 days 3 ea 11RF blood sugar diagnostic 3 times a day 100 ea 11RF E11.65 - Type 2 diabetes mellitus with hyperglycemia, Z79.4 - emt intermediate (current) use of insulin Coding
--- NOTE | 2023-11-30 07:10 | MHC.OFFVIS ---
Vital Signs 11/30/23 07:50 Height 5 ft 2 in Weight 137 lb 9.095 oz BMI 25.2 BP 116/58 L Blood Pressure Location Lt popliteal Position Sitting Pulse 90 Pulse Source Pulse Oximeter Intake Visit Reasons: F/U DM 2/Osteoporosis/CONFIRMED Intake Note: Patient presents today for DMT follow up visit. Last Diabetic Eye exam: 12/2022 Last Podiatry Visit: 10/2023 Random Glucose: 144 mg/dl HgA1c: 6.5% Continuity Coordinator Required: No Accompanied by: Self / Same As Patient Allergies metformin Allergy (Unknown, Verified 11/30/23 07:56) GI discomfort HPI Comments Details: 72 YO F with PMHx T2DM, HLD, Osteoporosis who is seen in F/U today for her diabetes. She is now on a OMNIPOD insulin pump. She was last seen by DM educator 10/11/23 at which time she was counseled to use exercise mode when she exercises to prevent lows and carb ratio was adjusted to prevent post prandial lows A1C 11/30/23:%, 08/31/23 5.9% Had prior reaction to Ozempic: coughing, metformin: diarrhea Prior to initiating pump RX 2023 she was on: Basaglar 37 units Novolog 12 units prelunch (1:8 RATIO FOR MEALS) She currently takes Trulicity 1.5mg weekly Dexcom aver age glucose: 137 14 day continuous glucose monitor report reviewed Glucose Managment indicator [ ] % Days with CGM data 47.9% was without sensor for several days TIme in ranges: [ 1] % very high (above 250) 8 % high ?(181-250) 88 % in range ?(70-180] 2 % low (69-55) 1 % ?very low (below 54) Interpretation [overall average in good control she is in auto mode 100% of the time 37% basal or 6.1 units 63% bolus or 10.2 units total daily dose 16.2 ] Basal rate(s) (units/hour) : 12 AM to 12 AM? 1.5 units / hr Bolus setting Insulin Carbohydrate Ratio (s) 12 AM to 12 AM? 1:8 12 AM to 12 AM? 1:20 Active Insulin Time:? 4 hours Target(s): 12 AM to 12 AM? 130 mg/dL Target threshold: 12 AM to 12 AM? 130 mg/dL Denies Hypoglycemia No Nephropathy: microalbumin 02/11 10.0 due for both cr/microalbumin No Retinopathy: ophthalmology Had appt 01/18/2023 needs to schedule Neuropathy: denies numbness, tingling or cramping in lower extremity Osteoporosis not addressed today: F/u to be scheduled with Dr. Hoskins. She is currently on Evenity Note carried forward for continuity. With regard to osteoporosis: Dr. White note, the patient has been poorly compliant with follow up. She has frequently missed doses of Prolia. She was last due over a year ago and did not follow up for her injection. She saw me in February of 2021 and decision was made to switch her to IV Reclast. Never recived reclast then but tok it in past for 3 -4 yrs . She had a repeat BMD which revealed severe osteoporosis of the spine. We had attempted to contact her for many months to schedule her infusion via telephone and also sent multiple letters. She never responded to us. She now presents for follow up. She was to decide on whether she would get anabolic therapy or resume Prolia. History: She has a history of Osteoporosis due to early menopause. Received first Prolia injection 09/03/18. Received 2nd dose of Prolia 03/06/2019. Third Dose of Prolia 10/29/2019. Tolerated this well. She then cancelled her 4th dose and has not followed up or had labs repeated since. She has long standing history of Osteoporosis. Risk factors include early surgical menopause with bilateral oophorectomy at the age of 41. She was treated with Fosamax for 1 year, followed by IV reclast from 5518-5804 (received 4 doses). She does have a history of kidney stones, one episode in the past. Never used steroids or AC, but does use daily PPI for many years. Did have a fragility fracture in 2017 of the R leg/ankle. Menarche age 15, , never breastfed. Menopause age 41 after bilateral oophorectomy. She has lost 1.5 inches of height. She has 0-2 servings of dairy daily in the form of cheese and milk. She takes Calcium 600 mg PO BID daily. Taking Vitamin D 2000 IU daily. She does have a history of Osteoporosis in her family. DXA: 04/07/2021 FINDINGS: AP SPINE L1-L4: Current: BMD 0.703 g/cm2, Z-score -2.5, T-score -4.0, osteoporosis, 2.0% increase from baseline (<5% change is not significant). Baseline: BMD 0.689 g/cm2. LEFT FEMUR, NECK: Current: BMD 0.614 g/cm2, Z-score -1.6, T-score -3.0, osteoporosis. Baseline: BMD 0.618 g/cm2. LEFT FEMUR, TOTAL: Current: BMD 0.706 g/cm2, Z-score -1.2, T-score -2.4, osteopenia, 0.9% increase from baseline (<5% change is not significant). Baseline: BMD 0.700 g/cm2. She never started Tymlos for osteoporosis because co-pay was too high for both Tymlos and Evenity Basal rate(s) (units/hour) : 12 AM to 12 AM? 1.5 units / hr Bolus setting Insulin Carbohydrate Ratio (s) 12 AM to 12 AM? 1:8 Correction Factor / Sensitivity Factor 12 AM to 12 AM? 1:20 Active Insulin Time:? 4 hours Target(s): 12 AM to 12 AM? 130 mg/dL Target threshold: 12 AM to 12 AM? 130 mg/dL PFSH Medical History Fibromyalgia HLD (hyperlipidemia) HTN (hypertension) Osteoporosis T2DM (type 2 diabetes mellitus) Type 2 diabetes mellitus with hyperglycemia Vitamin D deficiency Surgical History History of kidney stones Hx of hysterectomy Family History Father COPD (chronic obstructive pulmonary disease) Mother Osteoporosis Type 2 diabetes mellitus Social History Household Members: Spouse and Children Household Members Other:: , and adopted son Alcohol intake: former Patient Tobacco Use Status: Never used Tobacco Physical Exam Vital Signs: Last Vital Signs Pulse 90 11/30/23 07:50 BP 116/58 L 11/30/23 07:50 BMI result Body Mass Index 25.2 Const Other: Absence of Cushingoid features. Absence of acromegalic features. Neck exam reveals nl size thyroid about 15 gms. No thyroid nodules palpable. No carotid bruits present. Lungs CTA. Heart S1 S2, Reg R/R. No M/R G. Skin exam reveals absence of vitiligo or acanthosis nigricans. No edema Visual exam of foot performed. No ulcerations or open lesions. No inter digit maceration or fissuring. No onychomycosis, no callouses. Sensation intact to monofilament exam. Vibratory sensation is normal with 128 Hz tuning fork. Office Procedures Glucose Monitoring Details Details: see [facility] [address] - Glucose monitoring, continuous-physician I&R Procedure code (CPT) selection complete Results AMB Hemoglobin A1c AMB Hemoglobin A1c 6.5 % Last Edit by SOUMYA Funes on 11/30/23 08:08 Results Reviewed Results Reviewed: Laboratory Last Values Glucose (Clinic) 144 mg/dL (60-115) H 11/30/23 07:58 Hgb A1c (Clinic) 6.5 % (4.0-6.0) H 11/30/23 08:01 Assessment & Plan Assessment & Plan (1) T2DM (type 2 diabetes mellitus): Code(s): E11.9 - Type 2 diabetes mellitus without complications Category: Medical Qualifiers: Diabetes mellitus assisted insulin use: with ocean transportation intermediary use Diabetes mellitus complication status: with hyperglycemia Qualified Code(s): E11.65 - Type 2 diabetes mellitus with hyperglycemia; Z79.4 - ocean transportation intermediary (current) use of insulin Plan: Type 2 diabetic without complications on an insulin pump and GLP-1 agonist doing well with the current A1c of 6.5%. She has had less lows as she has not been exercising. She plans to increase the exercise and we will use the exercise mode on her pump. Prescriptions for insulin syringes and nasal glucagon were sent today. She will have labs done after she sees Dr. Hoskins in the event he would like to order additional osteoporosis labs. Orders: Orders Basic Metabolic Panel 1 Week E11.65 - Type 2 diabetes mellitus with hyperglycemia, Z79.4 - halfway (current) use of insulin Creatinine Urine 1 Week E11.65 - Type 2 diabetes mellitus with hyperglycemia, Z79.4 - halfway (current) use of insulin AMB Hemoglobin A1c Today E11.65 - Type 2 diabetes mellitus with hyperglycemia, Z13.9 - Encounter for screening, unspecified, Z79.4 - halfway (current) use of insulin Lipid Panel 1 Week E11.65 - Type 2 diabetes mellitus with hyperglycemia, Z79.4 - ocean transportation intermediary (current) use of insulin AMB Glucose Monitoring Today E11.65 - Type 2 diabetes mellitus with hyperglycemia, Z79.4 - halfway (current) use of insulin Microalbumin, Random (w Creat) 1 Week E11.65 - Type 2 diabetes mellitus with hyperglycemia, Z79.4 - halfway (current) use of insulin Medications: Changed From insulin syringe-needle U-100 (BD Insulin Syringe Ultra-Fine) Twice a day 100 ea 3RF To insulin syringe-needle U-100 (BD Insulin Syringe Ultra-Fine) qid prn pump failure 100 ea 3RF Refilled blood-glucose sensor As directed change every 10 days 3 ea 11RF blood sugar diagnostic 3 times a day 100 ea 11RF E11.65 - Type 2 diabetes mellitus with hyperglycemia, Z79.4 - ocean transportation intermediary (current) use of insulin Discontinued insulin aspart U-100 (Novolog FlexPen U-100 Insulin aspart) Discontinued Reason: Doctor's Order 15 units (0.15 mL) subcut TID 15 mL 5RF Patient Instructions: The patient was counseled to achieve a target A1C of 7% (154 avg). Fasting blood sugars should be 90-130 in the morning and less than 180 two hours after meals. Reviewed the relationship between poor diabetic control and the development of complications. The patient was counseled to wear closed toe shoes, never walk barefooted and to inspect the feet daily. For any signs of infection or open wound patient should notify PCP or go to urgent care. Symptoms of DKA were reviewed: early: frequent urination, dry mouth, fatigue, feeling ill, severe symptoms: ketones in the urine, abdominal pain, nausea, vomiting and weakness. It is important to hydrate with sugar free liquids every 30 minutes and bring the sugars down to normal levels. Troubleshooting after starting new pod or inserting new insulin set: Occlusion, adhesive tape sensitivity, redness Check BG 2 hours after site change Safety information: Importance of a backup plan, for manual injections, proper prescriptions and emergency supplies ketone strips, and rules for testing for ketones Coding Level of Care Code Est Pt Level 4 (19973) Diagnoses Type 2 diabetes mellitus with hyperglycemia, with long-term current use of insulin E11.65; Z79.4 Diabetes mellitus ocean transportation intermediary insulin use: with assisted use Diabetes mellitus complication status: with hyperglycemia CPT Codes Details - CPT: 01123 - Glucose monitoring, continuous-physician I&R ([id number]) Time Spent (min) 30 Comment Reviewing labs/provider notes, glucose sensor/pump reports, face to face, chart doc
[2023-11-30 07:50] VITALS: BP 116/58; PULSE 90; BMI 25.2
[2023-11-30 08:03] LABS: Glucose, Whole Blood 144 mg/dL (60-115)
== END 2023-11-30 08:33 | disposition home or self-care (01) ==
PROVIDERS: Visit Provider Nurse Practitioner Adult Health
DX: Z13.9 Encounter for screening, unspecified (principal); E11.65 Type 2 diabetes mellitus with hyperglycemia; Z79.4 Long term (current) use of insulin
CPT/HCPCS: 95251; 99214

== ENCOUNTER → 2023-11-30 07:42 | Outpatient (BNVA) | payer OTHER, SELFPAY | PROVIDERS: Visit Provider Nurse Practitioner Adult Health | DX: E11.65 Type 2 diabetes mellitus with hyperglycemia (principal); E78.5 Hyperlipidemia, unspecified; Z79.4 Long term (current) use of insulin; Z96.41 Presence of insulin pump (external) (internal) | CPT/HCPCS: 82947; 83036; 99212 ==

== ENCOUNTER 2023-12-06 08:36 | Outpatient (AMB) | payer OTHER, SELFPAY ==
[2023-12-06 08:39] VITALS: BP 138/76; PULSE 70; BMI 25.8
--- NOTE | 2023-12-06 08:39 | MHC.OFFVIS ---
Vital Signs 12/06/23 08:39 Height 5 ft 2 in Weight 140 lb 14.006 oz BMI 25.8 BP 138/76 Blood Pressure Location Lt brachial Position Sitting Pulse 70 Pulse Source Pulse Oximeter Intake Visit Reasons: Osteoporosis-conf Intake Note: Patient present today for Osteoporosis follow up visit. Intelligence Senior Sergeant Required: No Accompanied by: Self / Same As Patient Allergies metformin Allergy (Unknown, Verified 12/06/23 08:43) GI discomfort HPI Comments Details: 72 YO F with PMHx T2DM, HLD, Osteoporosis who is seen in F/U today for Osteoporosis. She has a history of Osteoporosis due to early menopause. Received first Prolia injection 09/03/18. Received 2nd dose of Prolia 03/06/2019. Third Dose of Prolia 10/29/2019. Tolerated this well. She then cancelled her 4th dose and has not followed up or had labs repeated since. She has long standing history of Osteoporosis. Risk factors include early surgical menopause with bilateral oophorectomy at the age of 41. She was treated with Fosamax for 1 year, followed by IV reclast from [id number] (received 4 doses). She does have a history of kidney stones, one episode in the past. Never used steroids or AC, but does use daily PPI for many years. Did have a fragility fracture in 2017 of the R leg/ankle. Menarche age 15, , never breastfed. Menopause age 41 after bilateral oophorectomy. She has lost 1.5 inches of height. She has 0-2 servings of dairy daily in the form of cheese and milk. She takes Calcium 600 mg PO BID daily. Taking Vitamin D 2000 IU daily. She does have a history of Osteoporosis in her family. DXA: 04/07/2021 FINDINGS: AP SPINE L1-L4: Current: BMD 0.703 g/cm2, Z-score -2.5, T-score -4.0, osteoporosis, 2.0% increase from baseline (<5% change is not significant). Baseline: BMD 0.689 g/cm2. LEFT FEMUR, NECK: Current: BMD 0.614 g/cm2, Z-score -1.6, T-score -3.0, osteoporosis. Baseline: BMD 0.618 g/cm2. LEFT FEMUR, TOTAL: Current: BMD 0.706 g/cm2, Z-score -1.2, T-score -2.4, osteopenia, 0.9% increase from baseline (<5% change is not significant). Baseline: BMD 0.700 g/cm2. She never started Tymlos for osteoporosis because co-pay was too high for both Tymlos and Evenity Labs: Laboratory Tests 12/07/20 12/07/20 08:00 08:00 Creatinine 0.77 Estimated GFR > 60 25-OH Vitamin D Total 40.7 PTH Intact 51 Calcium (PTH Intact) 9.7 Started Evenity this month at [facility] . No side effects except injection site reaction. [facility] Medical History Fibromyalgia HLD (hyperlipidemia) HTN (hypertension) Osteoporosis T2DM (type 2 diabetes mellitus) Type 2 diabetes mellitus with hyperglycemia Vitamin D deficiency Surgical History History of kidney stones Hx of hysterectomy Family History Father COPD (chronic obstructive pulmonary disease) Mother Osteoporosis Type 2 diabetes mellitus Social History Household Members: Spouse and Children Household Members Other:: , and adopted son Alcohol intake: former Patient Tobacco Use Status: Never used Tobacco Physical Exam Vital Signs: Last Vital Signs Pulse 70 12/06/23 08:39 BP 138/76 12/06/23 08:39 BMI result Body Mass Index 25.8 Assessment & Plan Assessment & Plan (1) Osteoporosis: Code(s): M81.0 - Age-related osteoporosis without current pathological fracture Category: Medical Qualifiers: Osteoporosis type: unspecified Presence of current pathological fracture: unspecified Qualified Code(s): M81.0 - Age-related osteoporosis without current pathological fracture Plan: Secondary workup was negative. She has a very low bone density and history of fragility fractures of the right ankle. She had very high risk for fragility fracture in the future. Plan is to continue the Evenity for full years course and then will probably transition to Prolia at that point Coding Level of Care Code Est Pt Level 3 (67403) Diagnoses Osteoporosis, unspecified osteoporosis type, unspecified pathological fracture presence M81.0 Osteoporosis type: unspecified Presence of current pathological fracture: unspecified
== END 2023-12-06 09:07 | disposition home or self-care (01) ==
PROVIDERS: Visit Provider Internal Medicine Endocrinology, Diabetes & Metabolism
DX: M81.0 Age-related osteoporosis without current pathological fracture (principal)
CPT/HCPCS: 99213

== ENCOUNTER → 2023-12-06 08:36 | Outpatient (BNVA) | payer OTHER, SELFPAY | PROVIDERS: Visit Provider Internal Medicine Endocrinology, Diabetes & Metabolism | DX: M81.0 Age-related osteoporosis without current pathological fracture (principal) | CPT/HCPCS: 99212 ==

== ENCOUNTER 2024-01-24 10:35 | Outpatient (AMB) | payer MEDICARE, SELFPAY ==
[2024-01-24 11:31] VITALS: BP 108/60; PULSE 94; TEMP 36.7; O2SAT 97
--- NOTE | 2024-01-24 11:31 | AM.OFFWIN_ITS ---
Intake Vital Signs 3 01/24/24 11:31 Weight 145 lb BP 108/60 Blood Pressure Location Rt brachial Position Sitting Pulse 94 Pulse Source Pulse Oximeter Temp 98.0 F Temp Source Oral Pulse Oximetry (%) 97 Oxygen Delivery Method Room Air Intake Visit Reasons: EP-tongue thrush Intake Note: Patient here for thrush that has been present since last Monday. Patient Tobacco Use Status: Never used Tobacco Allergies metformin Allergy (Unknown, Verified 01/24/24 11:32) GI discomfort Do you need a note to return to daycare/school/sports/work: No HPI HPI Comments 2 History of Present Illness0 Details History of Present Illness The patient is a 73-year-old female presenting with an oral lesion characterized by a raised area with white dots and a white center located at the posterior of the tongue. The lesion became noticeable approximately five days ago. The patient reports significant pain associated with the lesion, making it difficult for her to swallow pills. Despite the application of topical anesthetics, such as Ambusol, the symptomatic relief was minimal and short-lived. There is a concern regarding the appearance of the lesion, which was initially presumed to be thrush by a nurse at a [facility]; however, it does not resemble typical thrush. The patient has diabetes mellitus, but her blood glucose levels have reportedly not been elevated. Previous consultation at a local health center did not yield a definitive diagnosis, and the use of Motrin has provided only temporary relief of symptoms. [facility] Medical History Fibromyalgia HLD (hyperlipidemia) HTN (hypertension) Osteoporosis T2DM (type 2 diabetes mellitus) Type 2 diabetes mellitus with hyperglycemia Vitamin D deficiency Surgical History History of kidney stones Hx of hysterectomy Family History Father COPD (chronic obstructive pulmonary disease) Mother Osteoporosis Type 2 diabetes mellitus Social History Household Members: Spouse and Children Household Members Other:: , and adopted son Alcohol intake: former Patient Tobacco Use Status: Never used Tobacco Review of Systems Const All systems reviewed & are unremarkable except as noted in HPI and below Physical Exam Vital Signs: Last Vital Signs Temp 98.0 F 01/24/24 11:31 Pulse 94 01/24/24 11:31 BP 108/60 01/24/24 11:31 Pulse Ox 97 01/24/24 11:31 Oxygen Delivery Method Room Air 01/24/24 11:31 Const General: cooperative, healthy appearing, comfortable, no acute distress and well developed Orientation/consciousness: patient oriented x3 Limitations: no limitations HEENT Other: 1cm slightly fluctuant, raised area with white dots and a central white region on the posterior of the tongue Head: Yes normal to inspection Ears: hearing grossly normal bilaterally General nose exam: Normal external nose present Face and sinus: Yes normal facial exam Mouth: other (as above) Eyes General: appearance normal, both eyes and all related structures Neck Neck: Yes normal visual inspection and Yes full ROM Resp Effort & Inspection: normal respiratory effort and able to speak in complete sentences Skin General skin exam: no rashes or lesions noted Neuro General: patient oriented x3 Extrem General: Yes normal to inspection Assessment & Plan Assessment & Plan (1) Oral lesion: Code(s): K13.70 - Unspecified lesions of oral mucosa Plan: For the oral lesion, this is likely not thrush. due to the atypical presentation and concerns about a potential growth, I recommended going to the ED for evaluation at a hospital which has ENT on staff so she may obtain a consult from an ENT specialist. An urgent ENT evaluation is necessary to rule out other differential diagnoses, including painful growing abscess or potential neoplastic processes, warranting a biopsy. The patient was advised on the importance of pursuing specialist evaluation promptly. Patient was informed and verbally consented to the use of an ambient scribe for clinic note documentation during this visit. Coding Level of Care Code New Pt Level 3 (02649) Diagnoses Oral lesion K13.70
== END 2024-01-24 12:07 | disposition home or self-care (01) ==
PROVIDERS: Visit Provider Physician Assistant
DX: K13.70 Unspecified lesions of oral mucosa (principal)

== ENCOUNTER → 2024-01-24 10:35 | Outpatient (BNVA) | payer MEDICARE, SELFPAY | PROVIDERS: Visit Provider Physician Assistant | DX: K13.70 Unspecified lesions of oral mucosa (principal) | CPT/HCPCS: 99202 ==

== ENCOUNTER 2024-02-07 07:56 | Outpatient (AMB) | payer OTHER, SELFPAY ==
--- NOTE | 2024-02-07 08:26 | A.OFFVIS_ITS ---
Intake Intake Visit Reasons: 30 min Community Outreach Coordinator Required: No Accompanied by: Self / Same As Patient Allergies metformin Allergy (Unknown, Verified 01/24/24 11:32) GI discomfort HPI Comprehensive Diabetes Asmnt Most Recent Diabetes Results: Hemoglobin A1c 10.7 % 09/16/19 Microalb/Creat Ratio 5.0 ug/mg cr (<30) 02/09/23 Cholesterol 104 mg/dL (<200) 02/09/23 HDL Cholesterol 45 mg/dL (>40) 02/09/23 Triglycerides 51 mg/dL (<150) 02/09/23 Creatinine 0.81 mg/dL (0.5-1.4) 05/26/21 Blood Urea Nitrogen 14 mg/dL (9-16) 05/26/21 Sodium 141 mmol/L (135-145) 05/26/21 Potassium 4.8 mmol/L (3.3-5.1) 05/26/21 Chloride 106 mmol/L (96-108) 05/26/21 Carbon Dioxide 26 mmol/L (22-29) 05/26/21 Calcium 9.5 mg/dL (8.4-10.2) 11/14/23 AST 13 U/L (5-31) 05/26/21 ALT 16 U/L (0-31) 05/26/21 Total Protein 7.4 g/dL (6.5-8.0) 05/26/21 Albumin 4.1 g/dL (3.5-5.0) 11/14/23 PFSH Medical History Fibromyalgia HLD (hyperlipidemia) HTN (hypertension) Osteoporosis T2DM (type 2 diabetes mellitus) Type 2 diabetes mellitus with hyperglycemia Vitamin D deficiency Surgical History History of kidney stones Hx of hysterectomy Family History Father COPD (chronic obstructive pulmonary disease) Mother Osteoporosis Type 2 diabetes mellitus Social History Household Members: Spouse and Children Household Members Other:: , and adopted son Alcohol intake: former Patient Tobacco Use Status: Never used Tobacco Assessment & Plan Assessment & Plan (1) Type 2 diabetes mellitus with hyperglycemia: Code(s): E11.65 - Type 2 diabetes mellitus with hyperglycemia Plan: Patient presents for pump training for Omnipod 5 with Dexcom G6 The following topics were reviewed today: -Dexcom G6 sensors verses Dexcom G7 sensors Omnipod user name: Katie Password:[email or web address] Pin:[id number] ??? High Alert: 250 mg/dl ??? Low Alert: 70 mg/dl CGM: Average glucose for the past 2 weeks mg/dL Above target: % At target: % Below target: % Pump info: Basal: % Bolus % Patient in auto mode 100% TDD:units Patient reports that for several weeks she has not been able to connect Omnipod to Dexcom G6 sensor or transmitter. She also has not been receiving Dexcom information on smart phone. It appears transmitter has failed, transmitter was inserted on 11/15/2023, showed a lasted through 02/14/2024 but apparently has not been working for the past 2 or 3 weeks. Today's visit patient given sample Dexcom G6 sensor with transmitter, reinserted Dexcom sensor enter new transmitter into patient's cell phone in Omnipod PDM Patient left visit with sensor in warmup Patient given Dexcom customer service contact information to report failed transmitter Safety information: Patient understands the basic concepts of pump therapy, how to give insulin for meals and snacks, how to troubleshoot for hyper and hypoglycemia. Setting verified by CDCES, No changes made to patient's insulin pump settings at today's visit Basal rate(s) (units/hour) : 12 AM to 12 AM? 1.5 units / hr Bolus setting Insulin Carbohydrate Ratio (s) 12 AM to 12 AM? 1:8 Correction Factor / Sensitivity Factor 12 AM to 12 AM? 1:20 Active Insulin Time:? 4 hours Target(s): 12 AM to 12 AM? 130 mg/dL Target threshold: 12 AM to 12 AM? 130 mg/dL Patient will follow up with CDE as instructed Patient will contact CDE with questions or concerns, patient given IT number to support in any technical issues related to insulin pump Patient Instructions: Follow-up with early childhood educator aide in 4 months Coding Level of Care Code Est Pt Level 1 (88511) Diagnoses Type 2 diabetes mellitus with hyperglycemia E11.65
== END 2024-02-07 08:30 | disposition home or self-care (01) ==
PROVIDERS: PCP Nurse Practitioner Family; Visit Provider Registered Nurse Diabetes Educator
DX: E11.65 Type 2 diabetes mellitus with hyperglycemia (principal)

== ENCOUNTER → 2024-02-07 07:56 | Outpatient (BNVA) | payer OTHER, SELFPAY | PROVIDERS: PCP Nurse Practitioner Family; Visit Provider Registered Nurse Diabetes Educator | DX: E11.65 Type 2 diabetes mellitus with hyperglycemia (principal); Z79.4 Long term (current) use of insulin; Z96.41 Presence of insulin pump (external) (internal) | CPT/HCPCS: 99211 ==

== ENCOUNTER 2024-03-01 08:25 | Outpatient (AMB) | payer MEDICARE, SELFPAY ==
--- NOTE | 2024-03-01 07:19 | MHC.OFFVIS ---
Vital Signs 03/01/24 08:29 Height 5 ft 2 in Weight 136 lb 10.986 oz BMI 25.0 BP 112/74 Blood Pressure Location Rt brachial Position Sitting Pulse 76 Pulse Source Pulse Oximeter Intake Visit Reasons: T2DM Intake Note: Patient presents today for a follow-up on Type 2 Diabetes Mellitus: Last Diabetic eye exam was on: DUE Last Podiatry exam was on: Patient does not see a Rn Clinical Most recent HbA1c: 6.5%, 03/01/2024 Random Glucose- 135 mg/dL, Today Compensation And Hris Analyst Required: No Accompanied by: Self / Same As Patient Allergies metformin Allergy (Unknown, Verified 03/01/24 08:28) GI discomfort Medication List - Last Reconciled 03/01/24 by Margo Nowak NP acetone (urine) test (Ketone Urine Test strips) As directed aspirin 81 mg PO DAILY atorvastatin 80 mg PO DAILY blood-glucose meter As directed 3x/day blood-glucose meter (OneTouch Verio Flex Meter) As directed test 4 times a day blood-glucose sensor (e(ye)BRAIN G7 Sensor device) continous every 10 days calcium carbonate 600 mg PO BID cholecalciferol (vitamin D3) 50 mcg PO DAILY dulaglutide (Trulicity) 1.5 mg (0.5 mL) subcut QWEEK insulin aspart U-100 (Novolog U-100 Insulin aspart) subcutaneously; up to 70 units per day via insulin pump insulin glargine (Lantus Solostar U-100 Insulin) 16 units subcut QPM PRN insulin pump cart,auto,BT,G6/7 (Omnipod 5 G6-G7 Pods (Gen 5) subcutaneous cartridge) As directed insulin pump cart,auto,BT-cntr (Omnipod 5 G6 Intro Kit (Gen 5) subcutaneous cartridge with controller) As directed insulin pump cart,automated,BT (Omnipod 5 G6 Pods (Gen 5) subcutaneous cartridge) DIRECTED insulin syringe-needle U-100 (BD Insulin Syringe Ultra-Fine) qid prn pump failure lancets (UsoundTouch Delica Plus Lancet) USE TO TEST 4 TIMES A DAY losartan 25 mg PO DAILY omeprazole 40 mg PO DAILY OneTouch Verio test strips (blood sugar diagnostic) 3 times a day prn sensor failure or to confirm glucose NS pen needle, diabetic (BD Sheree 2nd Gen Pen Needle) USE DIRECTED FOUR TIMES A DAY HPI Comments Details: 73 YO F with PMHx T2DM, HLD, Osteoporosis who is seen in F/U today for her diabetes. She is now on a OMNIPOD insulin pump. She was last seen by DM educator 02/07/24 at which time no setting changes were made to her pump. She is followed by Dr. Hoskins for osteoporosis i and is on Evenity. A1c 03/01/2024 6.5% A1C 11/30/23: 6.5%. She has well-controlled diabetes. Had prior reaction to Ozempic: coughing, metformin: diarrhea Prior to initiating pump RX 2023 she was on: Basaglar 37 units Novolog 12 units prelunch (1:8 RATIO FOR MEALS) She currently takes Trulicity 1.5mg weekly Denies Hypoglycemia No Nephropathy: microalbumin 02/11 10.0 due for both cr/microalbumin No Retinopathy: ophthalmology Had appt 01/18/2023 needs to schedule No neuropathy: denies numbness, tingling or cramping in lower extremity ldl 49 02/11 On statin Dexcom average glucose: [ 132] 14 day continuous glucose monitor report reviewed Glucose Managment indicator [ ] % Days with CGM data 74.1 % TIme in ranges: 0 % very high (above 250) 8 % high ?(181-250) 91 % in range ?(70-180] 1 % low (69-55) 0 % ?very low (below 54) Interpretation well-controlled occasional lows right before lunch Total daily dose 21.9 units Basal 27% 6 units Bolus 73% 16 units Backup insulin plan Lantus 16 units plus 3 units with meals of NovoLog Basal rate(s) (units/hour) : 12 AM to 12 AM? 1.5 units / hr Bolus setting Insulin Carbohydrate Ratio (s) 12 AM to 12 AM? 1:8 Correction Factor / Sensitivity Factor 12 AM to 12 AM? 1:20 Active Insulin Time:? 4 hours Target(s): 12 AM to 12 AM? 130 mg/dL Target threshold: 12 AM to 12 AM? 130 mg/dL [facility] Medical History Fibromyalgia Osteoporosis Vitamin D deficiency HLD (hyperlipidemia) HTN (hypertension) T2DM (type 2 diabetes mellitus) Type 2 diabetes mellitus with hyperglycemia Surgical History History of kidney stones Hx of hysterectomy Family History Father COPD (chronic obstructive pulmonary disease) Mother Osteoporosis Type 2 diabetes mellitus Social History Household Members: Spouse and Children Household Members Other:: , and adopted son Alcohol intake: former Patient Tobacco Use Status: Never used Tobacco Physical Exam Vital Signs: Last Vital Signs Pulse 76 03/01/24 08:29 BP 112/74 03/01/24 08:29 BMI result Body Mass Index 25.0 Const Other: Absence of Cushingoid features. Absence of acromegalic features. Neck exam reveals nl size thyroid about 15 gms. No thyroid nodules palpable. No carotid bruits present. Lungs CTA. Heart S1 S2, Reg R/R. No M/R G. Skin exam reveals absence of vitiligo or acanthosis nigricans. No edema Visual exam of foot performed. No ulcerations or open lesions. No inter digit maceration or fissuring. No onychomycosis, no callouses. Sensation intact to monofilament exam. Vibratory sensation is normal with 128 Hz tuning fork. Office Procedures Glucose Monitoring Details Details: see [facility] [address] - Glucose monitoring, continuous-physician I&R Procedure code (CPT) selection complete Results AMB Hemoglobin A1c AMB Hemoglobin A1c 6.5 % Last Edit by SOUMYA Saini on 03/01/24 09:09 Results Reviewed Results Reviewed: Laboratory Last Values Glucose (Clinic) 135 mg/dL (60-115) H 03/01/24 08:35 Assessment & Plan Assessment & Plan (1) T2DM (type 2 diabetes mellitus): Code(s): E11.9 - Type 2 diabetes mellitus without complications Category: Medical Qualifiers: Diabetes mellitus complication status: with hyperglycemia Diabetes mellitus intermediate designer insulin use: with fpc use Qualified Code(s): E11.65 - Type 2 diabetes mellitus with hyperglycemia; Z79.4 - adjunct faculty for medical terminology (current) use of insulin Plan: 73-year-old type 2 diabetic on Omnipod insulin pump along with the Trulicity with well-controlled diabetes. No known micro or macrovascular complications. A1c in the office 03/01/2024 6.5 % Labs order The patient had an opportunity to ask questions regarding treatment plan. The patient expressed understanding and agreement with the above treatment plan. The patient is aware they should contact our office by phone for worsening glucose readings or for any low blood sugars which may warrant a change in diabetes medication. Compliance is encouraged with medications and any followup testing/consults which may have been ordered. Orders: Orders AMB Glucose Monitoring Today E11.65 - Type 2 diabetes mellitus with hyperglycemia, Z79.4 - adjunct faculty for medical terminology (current) use of insulin AMB Hemoglobin A1c Today E11.65 - Type 2 diabetes mellitus with hyperglycemia, Z79.4 - adjunct faculty for medical terminology (current) use of insulin Medications: New insulin pump cart,auto,BT,G6/7 (Omnipod 5 G6-G7 Pods (Gen 5) subcutaneous cartridge) As directed 30 ea 3RF E11.65 - Type 2 diabetes mellitus with hyperglycemia, Z79.4 - adjunct faculty for medical terminology (current) use of insulin blood-glucose sensor (Dexcom G7 Sensor device) continous every 10 days 9 ea 3RF E11.65 - Type 2 diabetes mellitus with hyperglycemia, Z79.4 - adjunct faculty for medical terminology (current) use of insulin Changed From insulin glargine (Lantus Solostar U-100 Insulin) 30 units (0.3 mL) subcut QPM 30 days PRN 3 mL 1RF pump failure To insulin glargine (Lantus Solostar U-100 Insulin) 16 units subcut QPM PRN Discontinued blood-glucose sensor (Dexcom G6 Sensor device) Discontinued Reason: Doctor's Order As directed change every 10 days 3 ea 11RF blood-glucose transmitter (Dexcom G6 Transmitter device) Discontinued Reason: Doctor's Order As directed 1 ea 3RF Patient Instructions: Troubleshooting after starting new pod or inserting new insulin set: Occlusion, adhesive tape sensitivity, redness Check BG 2 hours after site change Safety information: Importance of a backup plan, for manual injections, proper prescriptions and emergency supplies ketone strips, and rules for testing for ketones Symptoms of DKA (diabetic ketoacidosis): early: frequent urination, dry mouth, fatigue, feeling ill, severe symptoms: ketones in the urine, abdominal pain, nausea, vomiting and weakness. It is important to hydrate with sugar free liquids every 15-30 minutes and bring the sugars down to normal levels. If you are moderate or severe with ketones or unable to bring glucose to less than 200, go to the emergency room. Check your feet daily looking for any signs of infection, ulceration and seek medical attention if this occurs. Break in shoes gradually and do not wear open-toed shoes or walk barefooted. The patient was counseled to always carry a source of sugar and on the rule of 15's: Take 3 glucose tablets and repeat again in 15 minutes if blood sugar is not in normal range. Continue to repeat every 15 minutes until blood sugar is normal. Coding Level of Care Code Est Pt Level 4 (70681) Diagnoses Type 2 diabetes mellitus with hyperglycemia, with long-term current use of insulin E11.65; Z79.4 Diabetes mellitus complication status: with hyperglycemia Diabetes mellitus intermediate designer insulin use: with fpc use CPT Codes Details - CPT: 06691 - Glucose monitoring, continuous-physician I&R ([id number]) Time Spent (min) 35 Comment Reviewing labs/provider notes, glucose sensor/pump reports, face to face, chart doc
[2024-03-01 08:29] VITALS: BP 112/74; PULSE 76; BMI 25.0
[2024-03-01 08:39] LABS: Glucose, Whole Blood 135 mg/dL (60-115)
== END 2024-03-01 08:57 | disposition home or self-care (01) ==
PROVIDERS: Visit Provider Nurse Practitioner Adult Health
DX: E11.65 Type 2 diabetes mellitus with hyperglycemia (principal); Z79.4 Long term (current) use of insulin
CPT/HCPCS: 95251

== ENCOUNTER → 2024-03-01 08:25 | Outpatient (BNVA) | payer OTHER, SELFPAY | PROVIDERS: Visit Provider Nurse Practitioner Adult Health | DX: E11.65 Type 2 diabetes mellitus with hyperglycemia (principal); Z79.4 Long term (current) use of insulin | CPT/HCPCS: 82947; 83036; 99212 ==

== ENCOUNTER 2024-03-19 09:15 | Outpatient (AMB) | payer MEDICARE, SELFPAY ==
--- OUTSIDE RECORDS SUMMARY | 2024-03-19 09:42 | XMS_ITS | Clinical Summary ---
Author Organization [employer] Address [address] [place] [address] [address] [place] [address] Care Team Providers Care Crane Helper Name Role Phone Name, Kirby MOSLEY Primary Care Provider [phone] Allergies Active Allergy Reactions Criticality Noted Date Comments Lisinopril Angioedema 04/20/2018 Metformin 03/13/2018 Metformin Hcl Unknown 04/29/2015 Other Unknown 06/28/2023 Medications amitriptyline (Elavil) 25 MG tabletIndications:P eripheral polyneuropathy TAKE 1 TABLET BY MOUTH EVERYDAY AT BEDTIME 90 tablet 1 3 Active aspirin 81 MG EC tablet Take 1 tablet by mouth at bed time. 9 Active atorvastatin (Lipitor) 80 MG tablet Take 80 mg by mouth Once per day. Active cholecalciferol (D3-5) 5,000 Units tablet Take 1 tablet by mouth Once per day. Active losartan (Cozaar) 25 MG tablet Take 25 mg by mouth Once per day. Active benzocaine (Orajel) 10 % mucosal gelIndications:Jett smith ulceration Use in the mouth or throat if needed in the morning, at noon, and at bedtime for mucositis. 5.3 g 1 4 01/22/20 25 Active omeprazole (PriLOSEC) [address] capsule TAKE 1 CAPSULE BY MOUTH EVERY DAY BEFORE A MEAL 90 capsule 1 4 Active Active Problems Problem Noted Date Diagnosed Date Tachycardia 06/28/2023 Enlargement of neck 06/28/2023 Colon cancer screening 06/28/2023 Edema of lower extremity 07/24/2018 Type 2 diabetes mellitus 03/13/2018 Tubular adenoma of colon 03/13/2018 Tongue swelling 03/13/2018 Osteoporosis 03/13/2018 Hyperlipidemia 03/13/2018 H/O: hysterectomy 03/13/2018 Gastroesophageal reflux disease without esophagi tis 03/13/2018 Essential hypertension 03/13/2018 Encounters Date Type Department Care Team Description 02/08/2024 Refill [facility] [address] [place] [address] Oralia Michelle FNP 01/23/2024 Telephone [facility] [address] [place] [address] Gila Grayson RN 01/22/2024 5:00 PM EST Office Visit [facility] [address] [place] [address] Sarita Maldonado NP Tongue ulceration (Primary Dx); Sore throat 01/02/2024 Telephone [facility] [address] [place] [address] Oralia Michelle FNP from Last 3 Months Immunizations Name Administration Dates Next Due Hep B, adult 01/19/2021,11/24/2020,09/21/2020 INFLUENZA VACCINE QUADRIVALE NT RECOMBINANT PRESERVATIVE FREE RIV4 12/05/2019 Influenza High-dose Quadriva lent Preservative Free 12/15/2022,11/24/2020 Influenza injectable quadriv alent preservative free 04/20/2018 Influenza, IIV3, injectable 11/26/2015 Pneumococcal Conjugate PCV 13 04/20/2018 Pneumococcal Polysaccharide PPSV23 09/21/2020 Tdap 09/21/2020 Social History Tobacco Use Types Packs/Day Years Used Date Smoking Tobacco: Never Smokeless Tobacco: Never Tobacco Cessation:Counseling Given: Not Answered Alcohol Use Standard Drinks/Week Comments Never 0 (1 standard drink = 0.6 oz pur e alcohol) socially Depression Answer Date Recorded Patient Health Questionnaire-9 Score 0 09/18/2023 Patient Health Questionnaire-9 Score 0 09/18/2023 Last PHQ-9: Questionnaire Data Not on file 0 09/18/2023 Depression Answer Date Recorded Patient Health Questionnaire-2 Score 0 09/18/2023 Comments Unknown Sex and Gender Information Value Date Recorded Sex Assigned at Female 12/20/2021 10:34 AM EDT Legal Sex Female 10:34 AM EDT Gender Identity Female 12/20/2021 10:34 AM EDT Sexual Orientation Choose not to disclose 2021 10:34 AM EDT Last Filed Vital Signs Vital Sign Reading Time Taken Comments Blood Pressure 122/69 01/22/2024 5:08 PM EST Pulse 90 01/22/2024 5:08 PM EST Temperature 36.7 ??C (98 ??F) 01/22/2024 5:08 PM EST Respiratory Rate 22 01/22/2024 5:08 PM EST Oxygen Saturation 99% 01/22/2024 5:08 PM EST Inhaled Oxygen Concentration - - Weight 60.4 kg (133 lb 3.2 oz) 01/22/2024 5:08 P M EST Height 154.9 cm (5' 1 ) 01/22/2024 5:08 PM EST Body Mass Index 25.17 01/22/2024 5:08 PM EST Plan of Treatment Upcoming Encounters Date Type Department Care Team (Late st Contact Info) Description 04/30/2024 10:15 AM EDT Office Visit [facility] [address] [place] [address] Name, MD Kirby [address] [place] [address] Health Maintenance Due Date Last Done Comments CT Colonography 1952 Colonoscopy 1952 Colorectal Cancer Screening 1952 FIT DNA/Cologuard 1952 FIT 1952 FOBT 1950 SDOH Screening 1950 Sigmoidoscopy 1952 Diabetes: Foot Exam 1962 Eye Exam 1962 Alcohol/Substance Use Screening 1964 Zoster Vaccines (1 of 2) 2002 RSV Patients and Patients Aged 60 years or older (1 - Risk 60-74 years 1-dose series) 2012 Diabetes: Hemoglobin A1C 02/09/20232 023, 12/07/2020, 12/07/2020, Additional history exists Diabetes: Urine Protein Screening 02/10/2024 02/09/2023, 12/07/2020, 12/07/2020, Additional history exists Lipid Panel 02/10/2024 02/09/2023, 12/07/2020 Depression Screening 09/17/2024 09/18/2023, 09/18/19 Tobacco Screening 09/17/2024 09/18/2023 Mammogram 09/20/2025 09/21/2023, 06/20, 10/31/2019, Additional history exists DTaP/Tdap/Td Vaccines (2 - Td or Tdap) 09/21/2030 09/21/2020 Pneumococcal Vaccine: 65+ Years Completed 09/21/2020, 04/20/2018 Hepatitis B Vaccines Completed 01/19/2021, 11/24/2020, 09/21/2020 COVID-19 Vaccine Completed 10/20/2023, , 10/13/2021, Additional history exists Influenza Vaccine Completed 10/20/2023, , 11/24/2020, Additional history exists Hepatitis C Screening Completed 11/14/2023 HIB Vaccines Aged Out No longer eligi ble based on patient's age to complete this topic HPV Vaccines Aged Out No longer eligi ble based on patient's age to complete this topic Hepatitis A Vaccines Aged Out No long er eligible based on patient's age to complete this topic IPV Vaccines Aged Out No longer eligi ble based on patient's age to complete this topic Meningococcal Vaccine Aged Out No ann marie lissett eligible based on patient's age to complete this topic RSV under 20 months Aged Out No longe r eligible based on patient's age to complete this topic Rotavirus Vaccines Aged Out No longer eligible based on patient's age to complete this topic Procedures Procedure Name Priority Date/Time Associated Diagnosis Comments GLUCOSE, WHOLE BLOOD Routine 03/01/2024 8:35 AM EST HEPATITIS C VIRAL RNA, QUANTITATIVE, REAL-TIME PCR Routine 11/14/2023 9:38 AM EDT Routine health maintenance BI MAMMOGRAM SCREENING TOMOSYNTHESIS BILATERAL Routine 09/21/2023 8:00 AM EDT Breast cancer screening by mammogram ALBUMIN, RANDOM URINE W/CREATININE Routine 02/09/2023 8:55 AM EST LIPID PANEL, STANDARD Routine 02/09/2023 8:55 AM EST HM HEMOGLOBIN A1C Routine 08/10/2022 from Last 3 Months or Most Recently Relevant to Health Maintenance Results * (ABNORMAL) Glucose, Whole Blood (03/01/2024 8:35 AM EST) Pathologist [facility] Glucose, Whole Blood 135(H) 60 - 115 mg/dL [facility] Comment:METER #: [id number] 5Testing performed in the Endocrinology Department [address] , [address], [facility]. 03/01/2024 8:35 AM EST 03/01/2024 8:39 AM EST Generic External Data Provider LAB BLOOD ORDERAB LES Final Result Performing Organization Address [facility] Co de Phone Number [facility] [address] [place] [phone] * Hepatitis C Viral RNA, Quantitative, Real-Time PCR (11/14/2023 9:38 AM EDT) [facility] Hepatitis C Viral Load <15 NOT DETECTED NOT DETECTED IU/mL [facility] HCV Log PCR <1.18 NOT DETECTED NOT DETECTED Log IU/mL [facility] Comment:For additional infor mira, please refer tohttp://education.[employer]/faq/XBK88i1(This link is being provided for informational/educational purposes only.)THIS TEST WAS PERFORMED AT:[facility] [place] [phone] VINSON MD Blood 11/14/2023 9:38 AM EDT 11/14/2023 9:38 AM EDT Oralia Michelle CIVIL ENGINEER HELPER LAB BLOOD ORDERABLES Final Resu lt Performing Organization Address [facility] Co de Phone Number [facility] [address] [place] [phone] * BI Mammogram Screening Tomosynthesis Bilateral (09/21/2023 8:00 AM EDT) Anatomical Region Laterality Modality Breast Bilateral Mammography 09/21/2023 8:00 AM EDT Narrative 10/16/2023 2:50 AM EDT ? [facility] [place] ? [address] ?[place] [id number] ? Mammography Report ? Signed ? Patient: Brenner Vincent,Akua ?MR#: [id number] ?? [id number] ? : 1950 ?Acct:[id number] ? Age/Sex: 72 / F ?ADM Date: 09/21/23 ? Loc: HO.MAMMO ? Attending Dr: Oralia Michelle INDUSTRIAL SOCIOLOGIST ? Ordering Physician: Oralia Michelle INDUSTRIAL SOCIOLOGIST ?Results: 2Benign ?? Findings ? Date of Service: 09/21/23 ?Follow Up: 1 Year From Orig ?? inal Mammogram ? Procedure(s): MM tomosynthesis screening BI ?? Accession Number(s): [id number] ? cc: Oralia Michelle INDUSTRIAL SOCIOLOGIST ? EXAMINATION: ?? MM SCREENING DIGITAL BREAST TOMOSYNTHESIS, BILATERAL ? CLINICAL INFORMATION: ? Screening. Asymptomatic. ? COMPARISON: ?? Mammography: This study is compared with prior exams dating back to ? 2019. ? TECHNIQUE: ?? Digital breast tomosynthesis is performed in both the craniocaudal and ?? mediolateral oblique views along with computer-aided detection (CAD). ? Synthesized 2D images are generated from the tomosynthesis. ? FINDINGS: ?? The breasts are heterogeneously dense, which may obscure small masses ?? (ACR BI-RADS breast composition Category c). ? There are no significant masses, abnormal calcifications, or other ?? abnormalities. ?? Few, unchanged, benign calcifications are present in the right breast. ? MM/MM tomosynthesis screening BI ?? IMPRESSION: ?? No mammographic evidence of malignancy. ? ASSESSMENT: ? BI-RADS BI-RADS 2 - Benign Findings ? RECOMMENDATION: ?? Routine annual mammography screening. ? 1 year F/U ? This examination should not preclude the clinical evaluation of a ?? suspicious palpable abnormality. ? This patient's information was entered into a reminder system with a ?? target due date for their next mammogram. ? Electronically signed by: ??Lisa Hernandez MD ??10/16/2023 02:47 AM EDT RP ? Dictated By: ?Lisa Hernandez MD ? Signed By: ?<Electronically signed by Lisa Hernandez MD in OV> ? 10/16/23 0247 ? DD/ 08 ? TD/TT: 09/21/23 0809 ? Box Stapler: ? Procedure Note Christa Kitchen - 10/16/2023 [facility] [address] [place] [address] [place]. [place], [place] [id number] Mammography Report Signed Patient: Akua EasleyMR#: [id number] : 1950cct:[id number] Age/Sex: 72 / FADM Date: 09/21/23 Loc: ROBIN Attending Dr: Oralia Michelle INDUSTRIAL SOCIOLOGIST Ordering Physician: Oralia Michelle NPResults: 2Benign Findings Date of Service: 09/21/23Follow Up: 1 Year From Orig inal Mammogram Procedure(s): MM tomosynthesis screening BI Accession Number(s): [id number] cc: Oralia Michelle INDUSTRIAL SOCIOLOGIST EXAMINATION: MM SCREENING DIGITAL BREAST TOMOSYNTHESIS, BILATERAL CLINICAL INFORMATION: Screening. Asymptomatic. COMPARISON: Mammography: This study is compared with prior exams dating back to 2019. TECHNIQUE: Digital breast tomosynthesis is performed in both the craniocaudal and mediolateral oblique views along with computer-aided detection (CAD). Synthesized 2D images are generated from the tomosynthesis. FINDINGS: The breasts are heterogeneously dense, which may obscure small masses (ACR BI-RADS breast composition Category c). There are no significant masses, abnormal calcifications, or other abnormalities. Few, unchanged, benign calcifications are present in the right breast. MM/MM tomosynthesis screening BI IMPRESSION: No mammographic evidence of malignancy. ASSESSMENT: BI-RADS BI-RADS 2 - Benign Findings RECOMMENDATION: Routine annual mammography screening. 1 year F/U This examination should not preclude the clinical evaluation of a suspicious palpable abnormality. This patient's information was entered into a reminder system with a target due date for their next mammogram. Electronically signed by: Lisa Hernandez MD 10/16/2023 02:47 AM EDT Dictated By: Lisa Hernandez MD Signed By: <Electronically signed by Lisa Hernandez MD in OV> 10/16/23 0247 DD/ 0800 TD/TT: 09/21/23 0809 Box Stapler: Oralia Michelle [facility] IM BI PROCEDURES Final Result * Albumin, Random Urine W/Creatinine (02/09/2023 8:55 AM EST) Creatinine, Urine 197.78 mg/dL [facility] Microalbumin Urine 10.0 mg/L [facility] Microalbum Creatinine Ratio Ur 5.0 <30 ug/mg cr [facility] Comment:Albumin/Creatinine R atio Reference Ranges: Normal: < 30 ug/mg creatinine Microalbuminuria: 30 - 300 ug/mg creatinineClinical Albuminuria: > 300 ug/mg creatinine 02/09/2023 8:55 AM EST 02/09/2023 10:50 AM EST Generic External Data Provider LAB URINE ORDERAB LES Final Result Performing Organization Address [facility]/ZIP Co de Phone Number [facility] [address] [place] [phone] * Lipid Panel, Standard (02/09/2023 8:55 AM EST) Triglycerides 51 <150 mg/dL [facility] Comment:Desirable Triglyceri de: less than 150 mg/dLBorderline High Triglyceride 150-199 mg/dLHigh Triglyceride: 200-499 mg/dLVery High Triglyceride: greater than or equal to 5OO mg/dL Cholesterol 104 <200 mg/dL [facility] Comment:Desirable Cholestero l: less than 200 mg/dLBorderline High Cholesterol: 200-239 mg/dLHigh Cholesterol: greater than 239 mg/dL LDL Cholesterol Calculated 49 <100 mg/dL [facility] Comment:Desirable LDL: less than 100 mg/dLNear Optimal/Above Optimal LDL: 110- 129 mg/dLBorderline High LDL: 130-159 mg/dLHigh LDL: 160-189 mg/dLVery High LDL: greater than or equal to 190 mg/dL HDL Cholesterol 45 >40 mg/dL [facility] Comment:Desirable HDL: great er than 40 mg/dL Note: This HDL assay may give artificially low results in patients with liver disease. 02/09/2023 8:55 AM EST 02/09/2023 10:45 AM EST us Generic External Data Provider LAB BLOOD ORDERAB LES Final Result Performing Organization Address [facility]/ZIP Co de Phone Number [facility] [address] [place] [phone] [phone] * (ABNORMAL) Hemoglobin A1c (08/10/2022) Hemoglobin A1C 6.6(A) 4.0 - 6.0 % Narrative Marguerite Soler RN - 08/10/2022 See scanned note from [facility] dated 08/10/2022 us Historical Provider HEALTH MAINTENANCE Final Result from Last 3 Months or Most Recently Relevant to Health Maintenance Insurance [facility] Care Teams Crane Helper Relationship Specialty Start Date End Date Name, MD Kirby [address] [place] [address] PCP - General Internal Medicine 10/25/23
--- OUTSIDE RECORDS SUMMARY | 2024-03-19 09:42 | XMS_ITS | Clinical Summary ---
Author Organization [facility] Address [address] [place] [address] Phone Care Team Providers Care Arboreal Scientist Name Role Phone AlexiaricardoTienOralia Primary Care Provider [phone] Allergies Active Allergy Reactions Criticality Noted Date Comments Lisinopril Angioedema High 04/20/2018 Metformin Unknown 04/29/2015 Medications No known medications Encounters Date Type Department Care Team Description 01/24/2024 12:16 PM EST - 01/24/2024 10:04 PM EST Emergency [facility] Emergency [address] [place] [address] Discharge Disposition: Home or Self Care from Last 3 Months Surgical History Surgery Date Site/Laterality Comments HYSTERECTOMY Medical History Medical History Date Comments Hypertension Diabetes mellitus ([facility]/HCC) Social History Tobacco Use Types Packs/Day Years Used Date Smoking Tobacco: Never Smokeless Tobacco: Never Tobacco Cessation:Counseling Given: Not Answered Sex and Gender Information Value Date Recorded Sex Assigned at Not on file Gender Identity Not on file Sexual Orientation Not on file Job Start Date Occupation Industry Not on file Not on file Not on file Obstetrics History Last Filed Vital Signs Vital Sign Reading Time Taken Comments Blood Pressure 104/52 01/24/2024 5:40 PM EST Pulse 86 01/24/2024 5:40 PM EST Temperature 37 ??C (98.6 ??F) 01/24/2024 5:40 PM EST Respiratory Rate 18 01/24/2024 5:40 PM EST Oxygen Saturation 100% 01/24/2024 5:40 PM EST Inhaled Oxygen Concentration - - Weight 61.2 kg (135 lb) 01/24/2024 12:58 PM EST Height 154.9 cm (5' 1 ) 01/24/2024 12:58 PM EST Body Mass Index 25.51 01/24/2024 12:58 PM EST Plan of Treatment Health Maintenance Due Date Last Done Comments Breast Cancer Screening 1950 Diabetes: Annual GFR (Glomerular Filtration Rate) 1952 Diabetes: Annual Foot Exam 1962 Diabetes: Annual Retina Eye Exam 1962 Zoster Vaccines (1 of 2) 2002 Colorectal Cancer Screening: Colonoscopy 01/24/2024 Diabetes: Annual Urine Albumin-Creatinine Ratio (uACR) 01/24/2024 Diabetes: Blood Sugar Control Test (HGBA1C) 01/24/2024 Falls Risk Assessment 01/24/2024 Hepatitis C Screening 01/24/2024 Hypertension/CHF/CAD Annual BMP Blood Test 01/24/2024 Medicare Annual Wellness Visit 01/24/2024 Osteoporosis Screening (Bone Density Screening) 01/24/2024 Social Influencers of Health Screening 01/24/2024 Depression Screening 09/17/2024 09/18/2023 RSV Immunization Patients 60+ Years Old (1 - 1-dose 75+ series) 12/18/2027 Cholesterol Screening (Lipid Panel) 02/10/2028 02/09/2023 DTaP,Tdap,and Td Vaccines (2 - Td or Tdap) 09/21/2030 09/21/2020 Pneumococcal Vaccine: 65+ Years Completed 09/21/2020, 04/20/2018 Hepatitis B Vaccines Completed 01/19/2021, 11/24/2020, 09/21/2020 COVID-19 Vaccine Completed 10/20/2023, , 10/13/2021, Additional history exists Influenza Vaccine Completed 10/20/2023, , 11/24/2020, Additional history exists HIB Vaccines Aged Out No longer eligi [...] on patient's age to complete this topic MMR Vaccines Aged Out No longer eligi ble based on patient's age to complete this topic Meningococcal ACWY Vaccine Aged Out N o longer eligible based on patient's age to complete this topic RSV Immunization Patients Under 20 months Aged Out No longer eligible based on patient's age to complete this topic Varicella Vaccines Aged Out No longer eligible based on patient's age to complete this topic Care Teams Arboreal Scientist Relationship Specialty Start Date End Date Oralia Michelle [address] [place] [address] PCP - General Family Medicine 01/24/24
--- OUTSIDE RECORDS SUMMARY | 2024-03-19 09:42 | XMS_ITS | Patient Health Record ---
Author Organization [facility] Address [address] [place] [address] Care Team Providers Care Pipe Stripper Name Role Phone Jenifer Xiao Primary Care Provider Goyo Alfonso Jr Unavailable ALLERGIES Allergen (clinical drug ingredient) Drug/Non Drug Allergy documented on EMR Reaction Allergy Type Onset Date Status metformin Metformin HCl Unknown Drug Allergy Act jay antibiotic but unsur e of name (uncoded) Unknown Allergy Active REASON FOR REFERRAL No Information MEDICATIONS Medication SIG (Take, Route, Frequency, Duration) Notes Start Date End Date Status Calcium 1 tab Oral Active Lovastatin Active Amitriptyline HCl 25 MG 1 tablet Orally Once a day Active HumaLOG Active NexIUM 40 MG 1 capsule Orally Onc e a day Active Colyte with Flavor Packs 240 GM As directed Orally Over the specified time. for 1 day(s) 04/29/2015 Active Vitamin D 2000 UNIT Orally Active SOCIAL HISTORY Sex Assigned At : Social History Observation Description Sex Assigned At Unknown PROBLEMS Problem Type ICD Code Onset Dates Problem Status W/U Status Risk SNOMED Code Notes Problem Colon cancer screening (Z12.11) Active confirmed 823899278 Problem Gastroesophageal reflux disease without esophagitis (K21.9) Active confirmed 434995366 PLAN OF TREATMENT Future Test Test Name Order Date COLONOSCOPY 04/29/2015 Insurance Providers Payer Name Payer Address Payer Phone Subscriber Number Group Number Insured Name Patient Relationship to Insured Coverage Start Date Coverage End Date MEDICARE OF [place] [address] [place] [address] [id number] RIZVI RENÉ Self - patient is the insured MEDICAL (GENERAL) HISTORY Medical History History ICD Code colonoscopy 11-12-2008 egd 03-08-2000 reflux colon polyps substernal burning and pain type 2 diabetes mellitus Denies MT,CVA,Lung disease,renal disease Surgical History Surgery Date(Month/Year) hysterectomy kidney stone removal
--- NOTE | 2024-03-19 09:58 | MHC.AMDMED ---
Intake Intake Visit Reasons: CGM help Lag Screwer Required: No Accompanied by: Self / Same As Patient Allergies metformin Allergy (Unknown, Verified 03/01/24 08:28) GI discomfort HPI Comprehensive Diabetes Asmnt Most Recent Diabetes Results: Calcium 9.5 mg/dL (8.4-10.2) 11/14/23 Albumin 4.1 g/dL (3.5-5.0) 11/14/23 PFSH Medical History Fibromyalgia Osteoporosis Vitamin D deficiency HLD (hyperlipidemia) HTN (hypertension) T2DM (type 2 diabetes mellitus) Type 2 diabetes mellitus with hyperglycemia Surgical History History of kidney stones Hx of hysterectomy Family History Father COPD (chronic obstructive pulmonary disease) Mother Osteoporosis Type 2 diabetes mellitus Social History Household Members: Spouse and Children Household Members Other:: , and adopted son Alcohol intake: former Patient Tobacco Use Status: Never used Tobacco Assessment & Plan Assessment & Plan (1) Type 2 diabetes mellitus with hyperglycemia: Code(s): E11.65 - Type 2 diabetes mellitus with hyperglycemia Plan: Personal Continuous Glucose Monitor: Patients CGM information reviewed, Patient needs assistance in connecting Omnipod 5 reader to Dexcom G7 sensor Patient will return tomorrow with Omnipod 5 pod, insulin to review how to connect sensor to reader Patient's Omnipod 5 also has to be reconnected to [place] Portions of this note were created using voice recognition software, please excuse any words or phrases that may have been misinterpreted. Coding Level of Care Code Est Pt Level 1 (81423) Diagnoses Type 2 diabetes mellitus with hyperglycemia E11.65
== END 2024-03-19 10:03 | disposition home or self-care (01) ==
PROVIDERS: Visit Provider Registered Nurse Diabetes Educator
DX: E11.65 Type 2 diabetes mellitus with hyperglycemia (principal)

== ENCOUNTER → 2024-03-19 09:15 | Outpatient (BNVA) | payer MEDICARE, SELFPAY | PROVIDERS: Visit Provider Registered Nurse Diabetes Educator | DX: E11.65 Type 2 diabetes mellitus with hyperglycemia (principal); Z79.4 Long term (current) use of insulin; Z96.41 Presence of insulin pump (external) (internal) | CPT/HCPCS: 99211 ==

== ENCOUNTER 2024-03-20 08:37 | Outpatient (AMB) | payer MEDICARE, SELFPAY ==
--- NOTE | 2024-03-20 09:09 | A.OFFVIS_ITS ---
Intake Intake Visit Reasons: 60 min Basic Sciences Professor Required: No Accompanied by: Self / Same As Patient Allergies metformin Allergy (Unknown, Verified 03/01/24 08:28) GI discomfort HPI Comprehensive Diabetes Asmnt Most Recent Diabetes Results: Hemoglobin A1c 10.7 % 09/16/19 Microalb/Creat Ratio 5.0 ug/mg cr (<30) 02/09/23 Cholesterol 104 mg/dL (<200) 02/09/23 HDL Cholesterol 45 mg/dL (>40) 02/09/23 Triglycerides 51 mg/dL (<150) 02/09/23 Creatinine 0.81 mg/dL (0.5-1.4) 05/26/21 Blood Urea Nitrogen 14 mg/dL (9-16) 05/26/21 Sodium 141 mmol/L (135-145) 05/26/21 Potassium 4.8 mmol/L (3.3-5.1) 05/26/21 Chloride 106 mmol/L (96-108) 05/26/21 Carbon Dioxide 26 mmol/L (22-29) 05/26/21 Calcium 9.5 mg/dL (8.4-10.2) 11/14/23 AST 13 U/L (5-31) 05/26/21 ALT 16 U/L (0-31) 05/26/21 Total Protein 7.4 g/dL (6.5-8.0) 05/26/21 Albumin 4.1 g/dL (3.5-5.0) 11/14/23 PFSH Medical History Fibromyalgia Osteoporosis Vitamin D deficiency HLD (hyperlipidemia) HTN (hypertension) T2DM (type 2 diabetes mellitus) Type 2 diabetes mellitus with hyperglycemia Surgical History History of kidney stones Hx of hysterectomy Family History Father COPD (chronic obstructive pulmonary disease) Mother Osteoporosis Type 2 diabetes mellitus Social History Household Members: Spouse and Children Household Members Other:: , and adopted son Alcohol intake: former Patient Tobacco Use Status: Never used Tobacco Assessment & Plan Assessment & Plan (1) T2DM (type 2 diabetes mellitus): Code(s): E11.9 - Type 2 diabetes mellitus without complications Qualifiers: Diabetes mellitus buttermilk drier operator insulin use: with intermediate use Diabetes mellitus complication status: with hyperglycemia Qualified Code(s): E11.65 - Type 2 diabetes mellitus with hyperglycemia; Z79.4 - emt intermediate (current) use of insulin Plan: Patient presents for pump training for Omnipod 5 with Dexcom G6 The following topics were reviewed today: -Dexcom G6 sensors verses Dexcom G7 sensors Omnipod user name: Katie Password:[email or web address] Pin:[id number] ??? High Alert: 250 mg/dl ??? Low Alert: 70 mg/dl CGM: Average glucose for the past 2 weeks 107 mg/dL Above target: 5 % At target: 80% Below target: 15% Pump info: Basal: % Bolus % Patient in auto mode 100% TDD:units Patient transition to Dexcom G7 but could not connect Omnipod 5 PDM to Dexcom sensor. She has been having significant low glucose because she is not had the opportunity to use auto mode for the past 3 weeks At today's visit we connected Dexcom G7 sensor to patient's Omnipod 5 PDM, and switched into auto mode Reviewed with patient how to treat hypoglycemia with rule of 15s Patient declined to make pump settings at today's visit, reports that when she is in auto mode she is not experiencing hypoglycemia Recommended to patient if she changes her mind regarding overnight basal rate she can move appointment up Safety information: Patient understands the basic concepts of pump therapy, how to give insulin for meals and snacks, how to troubleshoot for hyper and hypoglycemia. Setting verified by CDCES, No changes made to patient's insulin pump settings at today's visit Basal rate(s) (units/hour) : 12 AM to 12 AM? 1.5 units / hr Bolus setting Insulin Carbohydrate Ratio (s) 12 AM to 12 AM? 1:8 Correction Factor / Sensitivity Factor 12 AM to 12 AM? 1:20 Active Insulin Time:? 4 hours Target(s): 12 AM to 12 AM? 130 mg/dL Target threshold: 12 AM to 12 AM? 130 mg/dL Patient will follow up with CDE as instructed Patient will contact CDE with questions or concerns, patient given IT number to support in any technical issues related to insulin pump Patient Instructions: Patient will follow-up with educator senior clinical in 3 months Coding Level of Care Code Est Pt Level 1 (07813) Diagnoses Type 2 diabetes mellitus with hyperglycemia, with long-term current use of insulin E11.65; Z79.4 Diabetes mellitus intermediate insulin use: with buttermilk drier operator use Diabetes mellitus complication status: with hyperglycemia
--- OUTSIDE RECORDS SUMMARY | 2024-03-20 09:15 | XMS_ITS | Patient Health Record ---
Author Organization [facility] Address [address] [place] [address] Care Team Providers Care Superintendent Water And Sewer Systems Name Role Phone Jenifer Xiao Primary Care [...] Problem Colon cancer screening (Z12.11) Active confirmed [id number] Problem Gastroesophageal reflux disease without esophagitis (K21.9) Active confirmed [id number] PLAN OF TREATMENT Future Test Test Name Order Date COLONOSCOPY 04/29/2015 Insurance Providers Payer Name Payer Address Payer Phone Subscriber Number Group Number Insured Name Patient Relationship to Insured Coverage Start Date Coverage End Date MEDICARE OF [place] [address] [place] [address] [phone] [id number] RIZVI RENÉ Self - patient is the insured MEDICAL (GENERAL) HISTORY Medical History History ICD Code colonoscopy 11-12-2008 egd 03-08-2000 reflux colon polyps substernal burning and pain type 2 diabetes mellitus Denies [place],CVA,Lung disease,renal disease Surgical History Surgery Date(Month/Year) hysterectomy kidney stone removal
--- OUTSIDE RECORDS SUMMARY | 2024-03-20 09:15 | XMS_ITS | Clinical Summary ---
Author Organization [facility] Address [address] [place] [address] Phone Care Team Providers Care Rope Maker Name Role Phone AlexiaricardoTienOralia Primary Care Provider [phone] Allergies Active Allergy Reactions Criticality Noted Date Comments Lisinopril Angioedema High 04/20/2018 Metformin Unknown 04/29/2015 Medications No known medications Encounters Date Type Department Care Team Description 01/24/2024 12:16 PM EST - 01/24/2024 10:04 PM EST Emergency [facility] Emergency [address] [place] [address] Discharge Disposition: Home or Self Care from Last 3 Months Surgical History Surgery Date Site/Laterality Comments HYSTERECTOMY Medical History Medical History Date Comments Hypertension Diabetes mellitus ([facility]/HCC) Social History Tobacco Use Types Packs/Day [...] age to complete this topic Care Teams Rope Maker Relationship Specialty Start Date End Date Oralia Michelle [address] [place] [address] PCP - General Family Medicine 01/24/24
== END 2024-03-20 09:12 | disposition home or self-care (01) ==
PROVIDERS: Visit Provider Registered Nurse Diabetes Educator
DX: E11.65 Type 2 diabetes mellitus with hyperglycemia (principal); Z79.4 Long term (current) use of insulin

== ENCOUNTER → 2024-03-20 08:37 | Outpatient (BNVA) | payer MEDICARE, SELFPAY | PROVIDERS: Visit Provider Registered Nurse Diabetes Educator | DX: E11.65 Type 2 diabetes mellitus with hyperglycemia (principal); Z79.4 Long term (current) use of insulin | CPT/HCPCS: 99211 ==

== ENCOUNTER 2024-04-01 08:12 | Outpatient (AMB) | payer MEDICARE, SELFPAY ==
[2024-04-01 08:21] VITALS: BP 132/50; PULSE 84; O2SAT 98; BMI 24.5
--- NOTE | 2024-04-01 08:21 | MHC.OFFVIS ---
Vital Signs 04/01/24 08:21 Height 5 ft 2 in Weight 134 lb 0.657 oz BMI 24.5 BP 132/50 L Blood Pressure Location Rt brachial Position Sitting Pulse 84 Pulse Source Pulse Oximeter Pulse Oximetry (%) 98 Oxygen Delivery Method Room Air Intake Visit Reasons: Colonoscopy Screening Intake Note: NEW PATIENT for colo screening. 3rd lifetime colo. Last 2015 w/ Dr. Singletary. Chief Complaint; Pt reports their reflux is well controlled with PPI. However, pt is concerned about [facility] implications of omeprazole use. Recent bone density raised concerns per pt and would like to discuss. No other GI concerns. Vinyl Cutter Required: No Accompanied by: Self / Same As Patient Allergies metformin Allergy (Unknown, Verified 04/01/24 08:21) GI discomfort HPI HPI Colonoscopy Screening: Details: 73 year old? female here today for pre colonoscopy screening.? Patient was sent to us by her PCP.? Last colonoscopy in [address] Singletary. Patient had tubular adenoma. Patient reports acid reflux, however controlled for the most part with omeprazole. Patient reports that when she forgets to take medication she has to take Tums throughout the day for her symptoms to be controlled. Patient denies any dyspepsia, dysphagia or odynophagia.? Denies any personal or family history of gastrointestinal disease, colon polyps, or CRC.? Denies history of difficulty with sedation or anesthesia in the past.? Negative for history of sleep apnea.? Denies any history of cardiac, renal, pulmonary, or hepatic disease.?? No history of infectious? diseases like hepatitis A, B, C, HIV or tuberculosis.? Patient is on low-dose aspirin. Patient takes Trulicity [facility] Medical History (Updated 04/01/24 @ 08:53 by Simona Sullivan, [facility]) GERD (gastroesophageal reflux disease) Fibromyalgia Osteoporosis Vitamin D deficiency HLD (hyperlipidemia) HTN (hypertension) T2DM (type 2 diabetes mellitus) Type 2 diabetes mellitus with hyperglycemia Surgical History (Updated 04/01/24 @ 08:28 by DAYTON Carpenter) History of colonoscopy History of kidney stones Hx of hysterectomy Family History Father COPD (chronic obstructive pulmonary disease) Mother Osteoporosis Type 2 diabetes mellitus Social History Household Members: Spouse and Children Household Members Other:: , and adopted son Alcohol intake: former Patient Tobacco Use Status: Never used Tobacco Review of Systems Const Denies weight gain and Denies weight loss ENT Reports no additional complaints, Denies dysphagia and Denies odynophagia Card Reports no additional complaints Resp Reports no additional complaints GI Denies abdominal pain, Denies belching, Denies melena, Denies bloating, Denies change in bowel habits, Denies dysphagia, Denies excessive flatus, Denies dyspepsia, Reports heartburn, Denies diarrhea, Denies loose stools, Denies nausea, Denies odynophagia and Denies vomiting Reports no additional complaints Musc Reports no additional complaints Neuro Reports no additional complaints Psych Reports no additional complaints Endo Reports no additional complaints Physical Exam Const General: healthy appearing, no acute distress and well developed Nutritional Appearance: well nourished Orientation/consciousness: patient oriented x3 Resp Effort & Inspection: normal respiratory effort, able to speak in complete sentences, no tracheal deviation and symmetric chest movement Auscultation: clear to auscultation bilaterally Cardio Rate: regular rate GI Inspection: Yes normal to inspection and No distended Palpation (GI): Soft to palpation, not firm, nontender and No hepatosplenomegaly present Auscultation: normal bowel sounds General: Yes no CVA tenderness Back/Spine/Pelvis Back: no CVA tenderness Skin General skin exam: elasticity normal, turgor normal and dry skin Neuro General: patient oriented x3 Psych Appearance: grossly normal Mental Status: mental status grossly normal Assessment & Plan Assessment & Plan (1) Screen for colon cancer: Code(s): Z12.11 - Encounter for screening for malignant neoplasm of colon (2) GERD (gastroesophageal reflux disease): Code(s): K21.9 - Gastro-esophageal reflux disease without esophagitis Category: Medical Qualifiers: Esophagitis presence: esophagitis presence not specified Qualified Code(s): K21.9 - Gastro-esophageal reflux disease without esophagitis Plan Patient denies any cardiac or respiratory symptoms.? Patient reports acid reflux, however she admits to having it controlled with omeprazole. Patient reports that if she forgets to take it she will have acid reflux that day and has to take Tums. Patient denies any nausea or vomiting. Denies any dyspepsia, dysphagia or odynophagia. Patient will be sent for upper endoscopy to rule out gastritis, esophagitis, Barretts, H pylori. Denies any issues with anesthesia in the past.? Denies any history of sleep apnea.? No history infectious diseases in the past or present.? Patient is on low-dose aspirin. Patient is on Trulicity.? No family or personal history of colon cancer or polyps.? Patient denies melena, hematochezia, unintentional weight loss or ribbon like stools.? Discussed at length the pre-procedure,? prep, diet & medications as well as what to expect prior, during and after the procedure.?? Stressed the importance of good bowel prep.? Recommended the use of Vaseline or Calmoseptine OTC & baby wipes with bowel movements to promote comfort.? ?Patient verbalizes understanding and agrees to plan of care.? She was given the opportunity to ask questions and all questions answered.? We will see her after the procedure.? Medications: New bisacodyl (Dulcolax (bisacodyl)) take 4 tabs at noon the day before your colonoscopy 20 mg (4 x 5 mg) PO ONCE 1 day 4 tabs 0RF Z12.11 - Encounter for screening for malignant neoplasm of colon polyethylene glycol 3350 (Miralax) As directed by gastroenterology department at [facility] 238 grams PO ONCE 238 grams 0RF Z12.11 - Encounter for screening for malignant neoplasm of colon Coding Level of Care Code New Pt Level 3 (90124) Diagnoses Screen for colon cancer Z12.11 Gastroesophageal reflux disease, unspecified whether esophagitis present K21.9 Esophagitis presence: esophagitis presence not specified Time Spent (min) 40 Comment 30 minutes spent with patient and additional 10 minutes spent reviewing her records
--- OUTSIDE RECORDS SUMMARY | 2024-04-01 08:26 | XMS_ITS | Clinical Summary ---
Author Organization [facility] Address [address] [place] [address] Phone Care Team Providers Care Shrimp Trawler Captain Name Role Phone Tien Michellenne Primary Care Provider [phone] Allergies Active Allergy Reactions Criticality Noted Date Comments Lisinopril Angioedema High 04/20/2018 Metformin Unknown 04/29/2015 Medications No known medications Encounters Date Type Department Care Team Description 01/24/2024 12:16 PM EST - 01/24/2024 10:04 PM EST Emergency [facility] Emergency [address] [place] [address] Discharge Disposition: Home or Self Care from Last 3 Months Surgical History Surgery Date Site/Laterality Comments HYSTERECTOMY Medical History Medical History Date Comments Hypertension Diabetes mellitus ([facility]/HCC) Social History Tobacco Use Types Packs/Day Years Used Date Smoking Tobacco: Never Smokeless Tobacco: Never Tobacco Cessation:Counseling Given: Not Answered Comments Unknown Sex and Gender Information Value Date Recorded Sex Assigned at Not on file Legal Sex Female 4:33 AM EST Gender Identity Not on file Sexual Orientation Not on file Obstetrics History Last Filed [...] 1962 Zoster Vaccines (1 of 2) 2002 DTaP,Tdap,and Td Vaccines (2 - Td or Tdap) 10/19/2020 09/21/2020 Colorectal Cancer Screening: Colonoscopy 01/24/2024 Diabetes: Annual [...] 12/18/2027 Cholesterol Screening (Lipid Panel) 02/10/2028 02/09/2023 Pneumococcal Vaccine: 50+ Years Completed 09/21/2020, 04/20/2018 Hepatitis B Vaccines [...] patient's age to complete this topic Meningococcal B Vacine Aged Out No lo nger eligible based on patient's age to complete this topic RSV Immunization Patients Under 20 months Aged Out No longer eligible based on patient's age to complete this topic Varicella Vaccines Aged Out No longer eligible based on patient's age to complete this topic Insurance [employer] MEDICARE Member Subscriber Plan / Payer (Ef fective 2022-Present) Name:Akua Brenner Relation to Subscriber:Self Name:Brenner, Akua Payer ID:[id number] Group ID:[id number] Type:Not on file Address: [place] [address] [address] [address] Care Teams Shrimp Trawler Captain Relationship Specialty Start Date End Date Oralia Michelle [address] [place] [address] PCP - General Family Medicine 01/24/24
--- OUTSIDE RECORDS SUMMARY | 2024-04-01 08:26 | XMS_ITS | Clinical Summary ---
Author Organization [facility] Address [address] [place] [address] [address] [place] [address] Care Team Providers Care Switch Adjuster Name Role Phone Name, Kirby MOSLEY Primary Care Provider [phone] Allergies Active Allergy Reactions Criticality Noted Date [...] Type Department Care Team Description 02/08/2024 Refill [facility] [address] [place] [address] Oralia Michelle FNP 01/23/2024 Telephone [facility] [address] [place] [address] Gila Grayson RN 01/22/2024 5:00 PM EST Office Visit [facility] [address] [place] [address] Sarita Maldonado NP Tongue ulceration (Primary Dx); Sore throat 01/02/2024 Telephone [facility] [address] [place] [address] Oralia Michelle FNP from Last 3 Months [...] Description 04/30/2024 10:15 AM EDT Office Visit [facility] [address] [place] [address] Name, MD Kirby [address] [place] [address] Health Maintenance Due Date Last Done Comments [...] Td or Tdap) 09/21/2030 09/21/2020 Pneumococcal Vaccine: 50+ Years Completed 09/21/2020, 04/20/2018 [...] Whole Blood (03/01/2024 8:35 AM EST) Pathologist [facility] Glucose, Whole Blood 135(H) 60 - 115 mg/dL [facility] Comment:METER #: [id number] 5Testing performed in the Endocrinology Department [address] , [address], [facility]. 03/01/2024 8:35 AM EST 03/01/2024 8:39 AM EST Generic External Data Provider LAB BLOOD ORDERAB LES Final Result Performing Organization Address [facility] Co de Phone Number [facility] [address] [place] [phone] * Hepatitis C Viral RNA, Quantitative, Real-Time PCR (11/14/2023 9:38 AM EDT) [facility] Hepatitis C Viral Load <15 NOT DETECTED NOT DETECTED IU/mL [facility] HCV Log PCR <1.18 NOT DETECTED NOT DETECTED Log IU/mL [facility] Comment:For additional infor mira, please refer tohttp://education.Wibki/faq/YQH65i9(This link is being provided for informational/educational purposes only.)THIS TEST WAS PERFORMED AT:[employer] [place] [phone] VINSON MD Blood 11/14/2023 9:38 AM EDT 11/14/2023 9:38 AM EDT Oralia Michelle [employer]PER[employer] LAB BLOOD ORDERABLES Final Resu lt Performing Organization Address [facility] Co de Phone Number [facility] [address] [place] [phone] * BI Mammogram Screening Tomosynthesis Bilateral (09/21/2023 8:00 AM EDT) Anatomical Region Laterality Modality Breast Bilateral Mammography 09/21/2023 8:00 AM EDT Narrative 10/16/2023 2:50 AM EDT ? [facility] ? [address] ?[place] [address] ? Mammography Report ? Signed ? Patient: Brenner Vincent,Akua ?MR#: [id number] ?? [id number] ? : 1950 ?Acct:[id number] ? Age/Sex: 72 / F ?ADM Date: 09/21/23 ? Loc: HO.MAMMO ? Attending Dr: Oralia Michelle JAVA JSF DEVELOPER ? Ordering Physician: Oralia Michelle JAVA JSF DEVELOPER ?Results: 2Benign ?? Findings ? Date of Service: 09/21/23 ?Follow Up: 1 Year From Orig ?? inal Mammogram ? Procedure(s): MM tomosynthesis screening BI ?? Accession Number(s): [id number] ? cc: Oralia Michelle JAVA JSF DEVELOPER ? EXAMINATION: ?? MM SCREENING DIGITAL BREAST [...] DD/ 08 ? TD/TT: 09/21/23 0809 ? Polystyrene Molding Machine Tender: ? Procedure Note Christa Kitchen - 10/16/2023 [facility] [address] [place] [address] Dr. [place], [place] [address] Mammography Report Signed Patient: Akua EasleyMR#: [id number] : 1950cct:[id number] Age/Sex: 72 / FADM Date: 09/21/23 Loc: [facility] Attending Dr: Oralia Michelle JAVA JSF DEVELOPER Ordering Physician: Oralia Michelle NPResults: 2Benign Findings Date of Service: 09/21/23Follow Up: 1 Year From Orig inal Mammogram Procedure(s): MM tomosynthesis screening BI Accession Number(s): [id number] cc: Oralia Michelle JAVA JSF DEVELOPER EXAMINATION: MM SCREENING DIGITAL BREAST TOMOSYNTHESIS, BILATERAL [...] 10/16/23 0247 DD/ 0800 TD/TT: 09/21/23 0809 Polystyrene Molding Machine Tender: Oralia Michelle [facility] IM BI PROCEDURES Final Result * Albumin, Random Urine W/Creatinine (02/09/2023 8:55 AM EST) Creatinine, Urine 197.78 mg/dL [facility] Microalbumin Urine 10.0 mg/L [facility] Microalbum Creatinine Ratio Ur 5.0 <30 ug/mg cr [facility] Comment:Albumin/Creatinine R atio Reference Ranges: Normal: < 30 ug/mg creatinine Microalbuminuria: 30 - 300 ug/mg creatinineClinical Albuminuria: > 300 ug/mg creatinine 02/09/2023 8:55 AM EST 02/09/2023 10:50 AM EST Generic External Data Provider LAB URINE ORDERAB LES Final Result Performing Organization Address [facility]/ZIP Co de Phone Number [facility] [address] [place] [phone] * Lipid Panel, Standard (02/09/2023 8:55 AM EST) Triglycerides 51 <150 mg/dL [facility] Comment:Desirable Triglyceri de: less than 150 mg/dLBorderline High Triglyceride 150-199 mg/dLHigh Triglyceride: 200-499 mg/dLVery High Triglyceride: greater than or equal to 5OO mg/dL Cholesterol 104 <200 mg/dL [facility] Comment:Desirable Cholestero l: less than 200 mg/dLBorderline High Cholesterol: 200-239 mg/dLHigh Cholesterol: greater than 239 mg/dL LDL Cholesterol Calculated 49 <100 mg/dL [facility] Comment:Desirable LDL: less than 100 mg/dLNear Optimal/Above Optimal LDL: 110- 129 mg/dLBorderline High LDL: 130-159 mg/dLHigh LDL: 160-189 mg/dLVery High LDL: greater than or equal to 190 mg/dL HDL Cholesterol 45 >40 mg/dL [facility] Comment:Desirable HDL: great er than 40 mg/dL Note: This HDL assay may give artificially low results in patients with liver disease. 02/09/2023 8:55 AM EST 02/09/2023 10:45 AM EST us Generic External Data Provider LAB BLOOD ORDERAB LES Final Result Performing Organization Address [facility]/ZIP Co de Phone Number [facility] [address] [place] [phone] [phone] * (ABNORMAL) Hemoglobin A1c (08/10/2022) Hemoglobin A1C 6.6(A) 4.0 - 6.0 % Narrative Marguerite Soler RN - 08/10/2022 See scanned note from [facility] Endocr[facility] dated 08/10/2022 us Historical Provider HEALTH MAINTENANCE Final Result from Last 3 Months or Most Recently Relevant to Health Maintenance Insurance [facility] Care Teams Switch Adjuster Relationship Specialty Start Date End Date Name, MD Kirby [address] [place] [address] PCP - General Internal Medicine 10/25/23
--- OUTSIDE RECORDS SUMMARY | 2024-04-01 08:26 | XMS_ITS | Patient Health Record ---
Author Organization [facility] Address [address] [place] [address] Care Team Providers Care Card Decorator Name Role Phone Jenifer Xiao Primary Care Provider Goyo Alfonso Jr Unavailable [phone] ALLERGIES Allergen (clinical drug ingredient) Drug/Non Drug [...] Problem Colon cancer screening (Z12.11) Active confirmed [id number] Problem Gastroesophageal reflux disease without esophagitis (K21.9) Active confirmed [id number] PLAN OF TREATMENT Future Test Test Name Order Date COLONOSCOPY 04/29/2015 Insurance Providers Payer Name Payer Address Payer Phone Subscriber Number Group Number Insured Name Patient Relationship to Insured Coverage Start Date Coverage End Date MEDICARE OF [employer]ORDYN [address] [place] [address] [phone] [id number] RENÉ RIZVI Self - patient is the insured MEDICAL (GENERAL) HISTORY Medical History History ICD Code colonoscopy 11-12-2008 egd 03-08-2000 reflux colon polyps substernal burning and pain type 2 diabetes mellitus Denies [place],CVA,Lung disease,renal disease Surgical History Surgery Date(Month/Year) hysterectomy kidney stone removal
== END 2024-04-01 09:01 | disposition home or self-care (01) ==
PROVIDERS: Visit Provider Nurse Practitioner Family
DX: Z01.818 Encounter for other preprocedural examination (principal); Z12.11 Encounter for screening for malignant neoplasm of colon; K21.9 Gastro-esophageal reflux disease without esophagitis
CPT/HCPCS: 99024

== ENCOUNTER → 2024-04-01 08:12 | Outpatient (BNVA) | payer MEDICARE, SELFPAY | PROVIDERS: Visit Provider Nurse Practitioner Family | DX: Z01.818 Encounter for other preprocedural examination (principal); K21.9 Gastro-esophageal reflux disease without esophagitis | CPT/HCPCS: 99212 ==

== ENCOUNTER 2024-06-06 07:53 | Outpatient (AMB) | payer MEDICARE, SELFPAY ==
--- OUTSIDE RECORDS SUMMARY | 2024-06-06 07:58 | XMS_ITS | Clinical Summary ---
Author Organization [facility] Address [address] [place] [address] [address] [place] [address] Care Team Providers Care Energy Project Manager Name Role Phone Name, Kirby MOSLEY Primary Care Provider [phone] Allergies Active Allergy Reactions Criticality Noted Date Comments Lisinopril Angioedema High 04/20/2018 Metformin Unknown 04/29/2015 Metformin Hcl Unknown 04/29/2015 Other Unknown 06/28/2023 Medications amitriptyline (Elavil) 25 MG tabletIndications: Peripheral polyneuropathy TAKE 1 TABLET BY MOUTH EVERYDAY AT BEDTIME 90 tablet 1 09/20/19 23 Active aspirin 81 MG EC tablet Take 1 tablet by mouth at bed time. 03/21/19 19 Active atorvastatin (Lipitor) 80 MG tablet Take 80 mg by mouth Once per day. Active cholecalciferol (D3-5) 5,000 Units tablet Take 1 tablet by mouth Once per day. Active losartan (Cozaar) 25 MG tablet Take 25 mg by mouth Once per day. Active benzocaine (Orajel) 10 % mucosal gelIndications:Ton patricio ulceration Use in the mouth or throat if needed in the morning, at noon, and at bedtime for mucositis. 5.3 g 1 01/22/20 24 025 Active omeprazole (PriLOSEC) [address] capsule TAKE 1 CAPSULE BY MOUTH EVERY DAY BEFORE A MEAL 90 capsule 1 02/08/20 24 Active Continuous Glucose Sensor (Dexcom G7 Sensor) misc CONTINOUS EVERY 10 DAYS 03/04/19 25 Active Continuous Glucose Transmitter (Dexcom G6 transmitter) misc as directed 02/12/20 24 Active dulaglutide (Trulicity) 1.5 MG/0.5ML solution pen-injector Inject under the skin once a week. Active NovoLOG 100 UNIT/ML solution INJECT SUBCUTANEOUSLY UP TO 70 UNITS PER DAY VIA INSULIN PUMP 02/26/19 25 Active Insulin Disposable Pump (Omnipod 5 BenB1A9 Pods Gen 5) misc as directed 03/01/19 25 Active Active Problems Problem Noted Date Diagnosed Date Colon cancer screening 06/28/2023 Type 2 diabetes mellitus 03/13/2018 Tubular adenoma of colon 03/13/2018 Osteoporosis 03/13/2018 Hyperlipidemia 03/13/2018 H/O: hysterectomy 03/13/2018 Gastroesophageal reflux disease without esophagi tis 03/13/2018 Essential hypertension 03/13/2018 Resolved Problems Problem Noted Date Diagnosed Date Resolved Date Tachycardia 06/28/2023 04/30/2024 Enlargement of neck 06/28/2023 05/01/19 25 Edema of lower extremity 07/24/201812/2024 Tongue swelling 03/13/2018 04/30/2024 Encounters Date Type Department Care Team Description 05/20/[address] [address] Sangeeta ePrdomo [place] august recalls 04/30/2024 10:15 AM EDT Office Visit [address] [address] Kirby Evangelista MD Controlled type 2 diabetes mellitus with diabetic nephropathy, with long-term current use of insulin ([facility]) (Primary Dx); Age-related osteoporosis without current pathological fracture; On statin therapy 04/29/[address] [address] Kirby Evangelista MD telephone call 04/19/2024 Patient Outreach [address] [address] Kirby Evangelista MD Pre-visit Planning (SDOH Screening negative and Tobacco screening negative) from Last 3 Months Immunizations Name Administration [...] Questionnaire Data Not on file 0 09/18/2023 Housing Stability Answer Date Recorded What is your housing situation today? I have sree abraham 04/19/[address] you li ve. Do you have problems with any of the following? None of the above 04/19/2024 Food Insecurity Answer Date Recorded Within the past 12 months, y ou worried that your food would run out before you got money to buy more: Never True 04/19/2024 Within the past 12 months,th e food you bought just didn't last and you didn't have enough money to get more: Never True Transportation Answer Date Recorded In the past 12 months, has l ack of transportation kept you from medical appts, meetings, work or from getting things needed for daily living? No 04/19/2024 Utilities Answer Date Recorded In the past 12 months, has t he electric, gas, oil or water company threatened to shut off services in your home? No 04/19/2024 Depression Answer Date Recorded Patient Health Questionnaire-2 Score 0 09/18/2023 Internet Access Answer Date Recorded Internet Access Q1 Yes 04/19/2024 Internet Access Q2 Not on file 04/19/2024 Comments Unknown Sex and Gender Information Value Date Recorded Sex Assigned at Female 12/20/2021 10:34 AM EDT Legal Sex Female 10:34 AM EDT Gender Identity Female 12/20/2021 10:34 AM EDT Sexual Orientation Choose not to disclose 2021 10:34 AM EDT Last Filed Vital Signs Vital Sign Reading Time Taken Comments Blood Pressure 115/61 04/30/2024 10:15 AM EDT Pulse 82 04/30/2024 10:15 AM EDT Temperature 36 ??C (96.8 ??F) 04/30/2024 10:15 AM EDT Respiratory Rate 16 04/30/2024 10:15 AM EDT Oxygen Saturation 98% 04/30/2024 10:15 AM EDT Inhaled Oxygen Concentration - - Weight 61.7 kg (136 lb) 04/30/2024 10:15 AM EDT Height 154.9 cm (5' 1 ) 01/22/2024 5:08 PM EST Body Mass Index 25.7 01/22/2024 5:08 PM EST Plan of Treatment Upcoming Encounters Date Type Department Care Team (Late st Contact Info) Description 09/04/2024 9:45 AM EDT Office Visit [facility] [address] [place], [place] [id number] Name, MD Kirby [address] [place] [address] Health Maintenance Due Date Last Done Comments CT Colonography 1952 Colonoscopy 1950 Colorectal Cancer Screening 1950 FIT DNA/Cologuard 1952 FIT 1950 FOBT 1950 Sigmoidoscopy 1952 Diabetes: Foot Exam 1962 Eye Exam 1962 Alcohol/Substance Use Screening 1964 Zoster Vaccines (1 of 2) 2002 RSV Patients and Patients Aged 60 years or older (1 - Risk 60-74 years 1-dose series) 2012 Lipid Panel 02/10/2024 02/09/2023, 12/07/2020 Depression Screening 09/17/2024 09/18/2023, 09/18/19 24 Tobacco Screening 09/17/2024 09/18/2023 Diabetes: Hemoglobin A1C 10/31/2024 025, 08/10/2022, 12/07/2020, Additional history exists SDOH Screening 04/19/2025 04/19/2024 Mammogram 09/20/2025 09/21/2023, 05/1 , 10/31/2019, Additional history exists DTaP/Tdap/Td Vaccines (2 [...] Procedure Name Priority Date/Time Associated Diagnosis Comments POCT GLYCATED HEMOGLOBIN, TOTAL Routine 04/30/2024 10:16 AM EDT Controlled type 2 diabetes mellitus with diabetic nephropathy, with long-term current use of insulin ([facility]) POCT GLUCOSE Routine 04/30/2024 10:16 AM EDT Controlled type 2 diabetes mellitus with diabetic nephropathy, with long-term current use of insulin ([facility]) HEPATITIS C VIRAL RNA, QUANTITATIVE, REAL-TIME PCR Routine 11/14/2023 9:38 AM EDT Routine health maintenance BI MAMMOGRAM SCREENING TOMOSYNTHESIS BILATERAL Routine 09/21/2023 8:00 AM EDT Breast cancer screening by mammogram LIPID PANEL, STANDARD Routine 02/09/2023 8:55 AM EST from Last 3 Months or Most Recently Relevant to Health Maintenance Results * POCT HGB A1C (04/30/2024 10:16 AM EDT) Hemoglobin A1C 5.9 4.0 - 6.0 % QC Media Lot # [id number] Lot# Expiration Date Blood 04/30/2024 10:1 6 AM EDT us Kirby Evangelista MD POINT OF CARE TEST ENTER/EDIT OR DERABLES Final Result * POCT Glucose (04/30/2024 10:16 AM EDT) Glucose Blood, POC 199 60 - 200 mg/dL QC Media Lot # [id number] Lot# Expiration Date Blood Capillary blood specimen / Unknown 04/30/2024 10:16 AM EDT Kirby Evangelista MD POINT OF CARE TEST ENTER/EDIT OR DERABLES Final Result * Hepatitis C Viral RNA, Quantitative, Real-Time PCR (11/14/2023 9:38 AM EDT) Hepatitis C Viral Load <15 NOT DETECTED NOT DETECTED IU/mL [facility] HCV Log PCR <1.18 NOT DETECTED NOT DETECTED Log IU/mL [facility] Comment:For additional infor mation, please refer [email or web address].[facility]/faq/[email or web address](This link is being provided for informational/educational purposes only.)THIS TEST WAS PERFORMED AT:[facility] [place] [phone] VINSON MD Blood 11/14/2023 9:38 AM EDT 11/14/2023 9:38 AM EDT us Oralia Michelle MARKET NEWS REPORTER LAB BLOOD ORDERABLES Final Resu lt [facility] [address] [place] [phone] * BI Mammogram Screening Tomosynthesis Bilateral (09/21/2023 8:00 AM EDT) Anatomical Region Laterality Modality Breast Bilateral Mammography 09/21/2023 8:00 AM EDT Narrative 10/16/2023 2:50 AM EDT ? [facility] ? [address] ?[place], [place] [address] ? Mammography Report ? Signed ? Patient: Brenner Vincent,Akua ?MR#: [id number] ?? [id number] ? : 1950 ?Acct:[id number] ? Age/Sex: 72 / F ?ADM Date: 09/21/23 ? Loc: HO.MAMMO ? Attending Dr: Oralia Michelle CEMENT FINISHER APPRENTICE ? Ordering Physician: Oralia Michelle CEMENT FINISHER APPRENTICE ?Results: 2Benign ?? Findings ? Date of Service: 09/21/23 ?Follow Up: 1 Year From Orig ?? inal Mammogram ? Procedure(s): MM tomosynthesis screening BI ?? Accession Number(s): [id number] ? cc: Oralia Michelle CEMENT FINISHER APPRENTICE ? EXAMINATION: ?? MM SCREENING DIGITAL BREAST [...] in OV> ? 10/16/23 0247 ? DD/ 0800 ? TD/TT: 09/21/23 0809 ? Radiotelegraph Operator Servicer: ? Procedure Note Donsaige, Image - 10/16/2023 [facility] [address] [place] [address] [place] [address] Mammography Report Signed Patient: Akua EasleyMR#: [id number] : 1950cct:[id number] Age/Sex: 72 / FADM Date: 09/21/23 Loc: HO.MAMMO Attending Dr: Oralia Michelle CEMENT FINISHER APPRENTICE Ordering Physician: Oralia Michelle NPResults: 2Benign Findings Date of Service: 09/21/23Follow Up: 1 Year From Orig inal Mammogram Procedure(s): MM tomosynthesis screening BI Accession Number(s): [id number] cc: Oralia Michelle CEMENT FINISHER APPRENTICE EXAMINATION: MM SCREENING DIGITAL BREAST TOMOSYNTHESIS, BILATERAL [...] 10/16/23 0247 DD/ 0800 TD/TT: 09/21/23 0809 Radiotelegraph Operator Servicer: Oralia Michelle MARKET NEWS REPORTER IMG BI PROCEDURES Final Result * Lipid Panel, Standard (02/09/2023 8:55 AM EST) Triglycerides 51 <150 mg/dL [facility] Comment:Desirable Triglyceri de: less than 150 mg/dLBorderline High Triglyceride 150-199 mg/dLHigh Triglyceride: 200-499 mg/dLVery High Triglyceride: greater than or equal to 5OO mg/dL Cholesterol 104 <200 mg/dL [facility] Comment:Desirable Cholestero l: less than 200 mg/dLBorderline High Cholesterol: 200-239 mg/dLHigh Cholesterol: greater than 239 mg/dL LDL Cholesterol Calculated 49 <100 mg/dL [facility] Comment:Desirable LDL: less than 100 mg/dLNear Optimal/Above Optimal LDL: 110- 129 mg/dLBorderline High LDL: 130-159 mg/dLHigh LDL: 160-189 mg/dLVery High LDL: greater than or equal to 190 mg/dL HDL Cholesterol 45 >40 mg/dL [facility] Comment:Desirable HDL: great er than 40 mg/dL Note: This HDL assay may give artificially low results in patients with liver disease. 02/09/2023 8:55 AM EST 02/09/2023 10:45 AM EST us Generic External Data Provider LAB BLOOD ORDERAB LES Final Result [facility] [address] [place] [phone] from Last 3 Months or Most Recently Relevant to Health Maintenance Insurance [facility] MEDICARE ADVANTAGE Care Teams Energy Project Manager Relationship Specialty Start Date End Date Name, MD Kirby [address] [place] [address] PCP - General Internal Medicine 10/25/23
--- OUTSIDE RECORDS SUMMARY | 2024-06-06 07:58 | XMS_ITS | Clinical Summary ---
Author Organization [facility] Address [address] [place] [address] Phone Care Team Providers Care Manager Regulatory Name Role Phone AlexiaricardoTienOralia Primary Care Provider [phone] Allergies Active Allergy Reactions Criticality Noted Date Comments Lisinopril Angioedema High 04/20/2018 Metformin Unknown 04/29/2015 Medications No known medications Surgical History Surgery Date Site/Laterality Comments HYSTERECTOMY Medical History Medical History Date Comments Hypertension Diabetes mellitus ([facility], [facility] V28) Social History Tobacco Use Types Packs/Day Years [...] 01/24/2024 Depression Screening 09/17/2024 09/18/2023 RSV Immunization Adult Patients (1 - 1-dose 75+ series) 12/18/2027 Cholesterol [...] age to complete this topic Meningococcal B Vaccine Aged Out No l onger eligible based on patient's age to complete this topic RSV Immunization Patients Under 20 months Aged Out No longer eligible based on patient's age to complete this topic Varicella Vaccines Aged Out No longer eligible based on patient's age to complete this topic Insurance [employer] MEDICARE Member Subscriber Plan / Payer (Ef fective 2022-Present) Name:Jarad Brenneraris Relation to Subscriber:Self Name:Jarad Brenneraris Payer ID:[id number] Group ID:[id number] Type:Not on file Address: [place] [address] [place] [id number] Care Teams Manager Regulatory Relationship Specialty Start Date End Date Oralia Michelle [address] [place] [address] PCP - General Family Medicine 01/24/24
--- OUTSIDE RECORDS SUMMARY | 2024-06-06 07:58 | XMS_ITS | Patient Health Record ---
Author Organization [facility] Address [address] [place] [address] Care Team Providers Care Appetizer Packer Name Role Phone Jenifer Xiao Primary Care Provider Goyo Alfonso Jr Unavailable Allergies Allergen (clinical drug ingredient) Drug/Non Drug Allergy documented on EMR Reaction Allergy Type Onset Date Status metformin Metformin HCl Unknown Drug Allergy Act jay antibiotic but unsur e of name (uncoded) Unknown Allergy Active Reason For Referral No Information Medications Medication SIG (Take, Route, Frequency, Duration) Notes [...] Active Vitamin D 2000 UNIT Orally Active Problems Problem Type SNOMED Code ICD Code Onset Dates Problem Status W/U Status Risk Notes Problem 771995730 Colon cancer screening (Z12.11) Active confirmed Problem 417806906 Gastroesophageal reflux disease without esophagitis (K21.9) Active confirmed Plan Of Treatment Future Test Test Name Order Date COLONOSCOPY 04/29/2015 Insurance Providers Payer Name Payer Address Payer Phone Subscriber Number Group Number Insured Name Patient Relationship to Insured Coverage Start Date Coverage End Date MEDICARE OF [place] [address] [place] [address] [id number] RIZVIMAJORRENÉ Self - patient is the insured Medical (General) History Medical History History ICD Code colonoscopy 11-12-2008 egd 03-08-2000 reflux colon polyps substernal burning and pain type 2 diabetes mellitus Denies AR,CVA,Lung disease,renal disease Surgical History Surgery Date(Month/Year) hysterectomy kidney stone removal
--- NOTE | 2024-06-06 07:59 | A.OFFVIS_ITS ---
Intake Intake Visit Reasons: 30 min Articulation Officer Required: No Accompanied by: Self / Same As Patient Allergies metformin Allergy (Unknown, Verified 04/01/24 08:21) GI discomfort HPI Comprehensive Diabetes Asmnt Most Recent Diabetes Results: 2 No Data to Display [facility] Medical History (Updated 04/01/24 @ 08:53 by Simona Sullivan [facility]) GERD (gastroesophageal reflux disease) Fibromyalgia Osteoporosis Vitamin D deficiency HLD (hyperlipidemia) HTN (hypertension) T2DM (type 2 diabetes mellitus) Type 2 diabetes mellitus with hyperglycemia Surgical History (Updated 04/01/24 @ 08:28 by Chet Brown CCM) History of colonoscopy History of kidney stones Hx of hysterectomy Family History Father COPD (chronic obstructive pulmonary disease) Mother Osteoporosis Type 2 diabetes mellitus Social History Household Members: Spouse and Children Household Members Other:: , and adopted son Alcohol intake: former Patient Tobacco Use Status: Never used Tobacco Assessment & Plan Assessment & Plan (1) Type 2 diabetes mellitus with hyperglycemia: Code(s): E11.65 - Type 2 diabetes mellitus with hyperglycemia Plan: Patient presents for pump training for Omnipod 5 with Dexcom G7 The following topics were reviewed today: -Omnipod 5 jorden Omnipod user name: [email or web address] Password:[email or web address] Pin:[email or web address] Screen lock:[id number] ??? High Alert: 250 mg/dl ??? Low Alert: 70 mg/dl Patient has been having connectivity issues with PDM and sensor, at today's visit we downloaded Omnipod 5 jorden on patient's cell phone. This is one of the reason patient has not been able to keep pump in auto mode. Instructed patient at next pods change instead of using PDM she can start pod with jorden on cell. Patient's current settings entered into Omnipod 5 jorden, added sensor information as well Safety information: Patient understands the basic concepts of pump therapy, how to give insulin for meals and snacks, how to troubleshoot for hyper and hypoglycemia. Setting verified by CDCES, No changes made to patient's insulin pump settings at today's visit Basal rate(s) (units/hour) : 12 AM to 12 AM? 1.5 units / hr Bolus setting Insulin Carbohydrate Ratio (s) 12 AM to 12 AM? 1:8 Correction Factor / Sensitivity Factor 12 AM to 12 AM? 1:20 Active Insulin Time:? 4 hours Target(s): 12 AM to 12 AM? 130 mg/dL Target threshold: 12 AM to 12 AM? 130 mg/dL Patient will follow up with CDE as instructed Patient will contact CDE with questions or concerns, patient given IT number to support in any technical issues related to insulin pump Patient Instructions: Follow-up with school vocational educator as needed Coding Level of Care Code Est Pt Level 1 (22081) Diagnoses Type 2 diabetes mellitus with hyperglycemia E11.65
== END 2024-06-06 09:07 | disposition home or self-care (01) ==
LOC: HO.ENCR 07:53
PROVIDERS: PCP Nurse Practitioner Family; Visit Provider Registered Nurse Diabetes Educator
DX: E11.65 Type 2 diabetes mellitus with hyperglycemia (principal)

== ENCOUNTER → 2024-06-06 07:53 | Outpatient (BNVA) | payer MEDICARE, SELFPAY | PROVIDERS: PCP Nurse Practitioner Family; Visit Provider Registered Nurse Diabetes Educator | DX: E11.65 Type 2 diabetes mellitus with hyperglycemia (principal) | CPT/HCPCS: 99211 ==

== ENCOUNTER 2024-06-17 10:52 | Outpatient (AMB) | payer MEDICARE, SELFPAY ==
--- OUTSIDE RECORDS SUMMARY | 2024-06-17 13:01 | XMS_ITS | Clinical Summary ---
Author Organization [facility] Address [address] [place] [address] Phone Care Team Providers Care Epic Kaleidoscope Analyst Name Role Phone AlexiaricardoTienOralia Primary Care Provider [phone] Allergies Active Allergy Reactions Criticality Noted Date Comments Lisinopril Angioedema High 04/20/2018 Metformin Unknown 04/29/2015 Medications No known medications Surgical History Surgery Date Site/Laterality Comments HYSTERECTOMY Medical History Medical History Date Comments Hypertension Diabetes mellitus ([facility] V24, [facility] V28) Social History Tobacco Use Types [...] 01/24/2024 Social Influencers of Health Screening 01/24/2024 COVID-19 Vaccine ( season) 2024 10/20/2023, 12/15/2022, 10/13/2021, Additional history exists Depression Screening 09/17/2024 09/18/2023 RSV Immunization Adult Patients (1 - 1-dose 75+ series) 12/18/2027 Cholesterol Screening (Lipid Panel) 02/10/2028 02/09/2023 DTaP,Tdap,and Td Vaccines (2 - Td or Tdap) 09/21/2030 09/21/2020 Pneumococcal Vaccine: 50+ Years Completed 09/21/2020, 04/20/2018 Hepatitis B Vaccines Completed 01/19/2021, 11/24/2020, 09/21/2020 Influenza Vaccine Completed 10/20/2023, , 11/24/2020, Additional [...] fective 2022-Present) Name:Jarad Brenneraris Relation to Subscriber:Self Name:Akua Brenner Payer ID:[id number] Group ID:[id number] Type:Not on file Address: [place] [address] [place] [phone] Care Teams Epic Kaleidoscope Analyst Relationship Specialty Start Date End Date Oralia Michelle [address] [place] [address] PCP - General Family Medicine 01/24/24
--- OUTSIDE RECORDS SUMMARY | 2024-06-17 13:01 | XMS_ITS | Clinical Summary ---
Author Organization [employer] Address [address] [place] [address] 7[address] [place] [address] Care Team Providers Care Educational Aide Name Role Phone Name, Kirby MOSLEY Primary Care Provider [phone] Allergies Active Allergy Reactions Criticality Noted Date [...] 25 Active Insulin Disposable Pump (Omnipod 5 [id number] Pods Gen 5) misc as directed 03/01/19 [...] Type Department Care Team Description 05/20/[address] [address] Sangeeta Perdomo [place] august recalls 04/30/2024 10:15 AM EDT Office Visit [address] [address] Kirby Evangelista MD Controlled type 2 diabetes mellitus with diabetic nephropathy, with long-term current use of insulin ([facility]) (Primary Dx); Age-related osteoporosis without current pathological fracture; On statin therapy 04/29/[address] [address] Kirby Evangelista MD telephone call 04/19/2024 Patient Outreach [address] [address] Kirby Evangelista MD Pre-visit Planning (SDOH Screening [...] Description 09/04/2024 9:45 AM EDT Office Visit [facility] [address] [place], [place] [id number] Name, MD Kirby [address] [place] [address] Health Maintenance Due Date Last Done Comments [...] nephropathy, with long-term current use of insulin ([facility]) POCT GLUCOSE Routine 04/30/2024 10:16 AM EDT Controlled type 2 diabetes mellitus with diabetic nephropathy, with long-term current use of insulin ([facility]) HEPATITIS C VIRAL RNA, QUANTITATIVE, REAL-TIME PCR [...] / Unknown 04/30/2024 10:16 AM EDT Kirby Eavngelista MD POINT OF CARE TEST ENTER/EDIT OR DERABLES Final Result * Hepatitis C Viral RNA, Quantitative, Real-Time PCR (11/14/2023 9:38 AM EDT) Hepatitis C Viral Load <15 NOT DETECTED NOT DETECTED IU/mL [facility] HCV Log PCR <1.18 NOT DETECTED NOT DETECTED Log IU/mL [facility] Comment:For additional infor mation, please refer tohttp://education.Respicardia/faq/ABX55v6(This link is being provided for informational/educational purposes only.)THIS TEST WAS PERFORMED AT:[address] [place] [phone] VINSON MD Blood 11/14/2023 9:38 AM EDT 11/14/2023 9:38 AM EDT us Oralia Michelle INTERACTIVE DEVELOPER LAB BLOOD ORDERABLES Final Resu lt [facility] [address] [place] [phone] * BI Mammogram Screening Tomosynthesis Bilateral (09/21/2023 8:00 AM EDT) Anatomical Region Laterality Modality Breast Bilateral Mammography 09/21/2023 8:00 AM EDT Narrative 10/16/2023 2:50 AM EDT ? [facility] ? [address] [facility] ?[place] [address] ? Mammography Report ? Signed ? Patient: Brenner Vincent,Akua ?MR#: [id number] ?? [id number] ? : 1950 ?Acct:[id number] ? Age/Sex: 72 / F ?ADM Date: 09/21/23 ? Loc: HO.MAMMO ? Attending Dr: Oralia Michelle DIRECTOR OF ENTERPRISE APPLICATIONS ? Ordering Physician: Oralia Michelle DIRECTOR OF ENTERPRISE APPLICATIONS ?Results: 2Benign ?? Findings ? Date of Service: 09/21/23 ?Follow Up: 1 Year From Orig ?? inal Mammogram ? Procedure(s): MM tomosynthesis screening BI ?? Accession Number(s): [id number] ? cc: Oralia Michelle DIRECTOR OF ENTERPRISE APPLICATIONS ? EXAMINATION: ?? MM SCREENING DIGITAL BREAST [...] DD/ 0800 ? TD/TT: 09/21/23 0809 ? Manufacturing Area Manager: ? Procedure Note Donsaige, Image - 10/16/2023 [facility] [address] [place] [address] [place] [address] Mammography Report Signed Patient: Akua EasleyMR#: [id number] : 1950cct:[id number] Age/Sex: 72 / FADM Date: 09/21/23 Loc: HO.MAMMO Attending Dr: Oralia Michelle DIRECTOR OF ENTERPRISE APPLICATIONS Ordering Physician: Oralia Michelle NPResults: 2Benign Findings Date of Service: 09/21/23Follow Up: 1 Year From Orig inal Mammogram Procedure(s): MM tomosynthesis screening BI Accession Number(s): [id number] cc: Oralia Michelle DIRECTOR OF ENTERPRISE APPLICATIONS EXAMINATION: MM SCREENING DIGITAL BREAST TOMOSYNTHESIS, BILATERAL [...] 10/16/23 0247 DD/ 0800 TD/TT: 09/21/23 0809 Manufacturing Area Manager: Oralia Michelle INTERACTIVE DEVELOPER IMG BI PROCEDURES Final Result * Lipid Panel, Standard (02/09/2023 8:55 AM EST) Triglycerides 51 <150 mg/dL [facility] Comment:Desirable Triglyceri de: less than 150 mg/dLBorderline High Triglyceride 150-199 mg/dLHigh Triglyceride: 200-499 mg/dLVery High Triglyceride: greater than or equal to 5OO mg/dL Cholesterol 104 <200 mg/dL [facility] Comment:Desirable Cholestero l: less than 200 mg/dLBorderline High Cholesterol: 200-239 mg/dLHigh Cholesterol: greater than 239 mg/dL LDL Cholesterol Calculated 49 <100 mg/dL [facility] Comment:Desirable LDL: less than 100 mg/dLNear Optimal/Above Optimal LDL: 110- 129 mg/dLBorderline High LDL: 130-159 mg/dLHigh LDL: 160-189 mg/dLVery High LDL: greater than or equal to 190 mg/dL HDL Cholesterol 45 >40 mg/dL [facility] Comment:Desirable HDL: great er than 40 mg/dL Note: This HDL assay may give artificially low results in patients with liver disease. 02/09/2023 8:55 AM EST 02/09/2023 10:45 AM EST us Generic External Data Provider LAB BLOOD ORDERAB LES Final Result [facility] [address] [place] [phone] from Last 3 Months or Most Recently Relevant to Health Maintenance Insurance [facility] MEDICARE ADVANTAGE Care Teams Educational Aide Relationship Specialty Start Date End Date Name, MD Kirby [address] [place] [address] PCP - General Internal Medicine 10/25/23
--- NOTE | 2024-06-17 13:14 | MHC.AMDMED ---
Intake Intake Visit Reasons: Sensor issues Accompanied by: Self / Same As Patient Allergies metformin Allergy (Unknown, Verified 04/01/24 08:21) GI discomfort HPI Comprehensive Diabetes Asmnt Most Recent Diabetes Results: No Data to Display [facility] Medical History (Updated 04/01/24 @ 08:53 by Simona Sullivan, [facility]) GERD (gastroesophageal reflux disease) Fibromyalgia Osteoporosis Vitamin D deficiency HLD (hyperlipidemia) HTN (hypertension) T2DM (type 2 diabetes mellitus) Type 2 diabetes mellitus with hyperglycemia Surgical History (Updated 04/01/24 @ 08:28 by Chet Brown CCM) History of colonoscopy History of kidney stones Hx of hysterectomy Family History Father COPD (chronic obstructive pulmonary disease) Mother Osteoporosis Type 2 diabetes mellitus Social History Household Members: Spouse and Children Household Members Other:: , and adopted son Alcohol intake: former Patient Tobacco Use Status: Never used Tobacco Assessment & Plan Assessment & Plan (1) T2DM (type 2 diabetes mellitus): Code(s): E11.9 - Type 2 diabetes mellitus without complications Qualifiers: Diabetes mellitus detention insulin use: with joint terminal attack controller use Diabetes mellitus complication status: with hyperglycemia Qualified Code(s): E11.65 - Type 2 diabetes mellitus with hyperglycemia; Z79.4 - terminal makeup operator (current) use of insulin Plan: Patient at visit to reconnect sensor to Omnipod and Dexcom G7 jorden on smart phone Patient reports that she inserted Dexcom G7 sensor approximately 3 days ago, after warmup session was done sensor failed and did not connect to Omnipod or Dexcom G7. Patient has been using fingersticks to monitor glucose levels. Sensor placed on the back of left arm Sensor connected to cell phone Patient left visit with sensor in warmup Reminded Pt that if symptoms do not match sensor still needs to check fingersticks. Portions of this note were created using voice recognition software, please excuse any words or phrases that may have been misinterpreted. Patient Instructions: Patient will follow-up with natural resources extension educator as needed Coding Level of Care Code Est Pt Level 1 (41399) Diagnoses Type 2 diabetes mellitus with hyperglycemia, with long-term current use of insulin E11.65; Z79.4 Diabetes mellitus joint terminal attack controller insulin use: with joint terminal attack controller use Diabetes mellitus complication status: with hyperglycemia
== END 2024-06-17 11:55 | disposition home or self-care (01) ==
LOC: HO.ENCR 10:53
PROVIDERS: PCP Nurse Practitioner Family; Visit Provider Registered Nurse Diabetes Educator
DX: E11.65 Type 2 diabetes mellitus with hyperglycemia (principal); Z79.4 Long term (current) use of insulin

== ENCOUNTER → 2024-06-17 10:52 | Outpatient (BNVA) | payer MEDICARE, SELFPAY | PROVIDERS: PCP Nurse Practitioner Family; Visit Provider Registered Nurse Diabetes Educator | DX: E11.65 Type 2 diabetes mellitus with hyperglycemia (principal); Z79.4 Long term (current) use of insulin | CPT/HCPCS: 99211 ==

== ENCOUNTER 2024-06-24 08:04 | Outpatient (REF) | payer MEDICARE, SELFPAY ==
--- OUTSIDE RECORDS SUMMARY | 2024-06-24 08:10 | XMS_ITS | Clinical Summary ---
Author Organization [facility] Address [address] [place] [address] Phone Care Team Providers Care Certified Master Locksmith Name Role Phone AlexiaricardoTienOralia Primary Care Provider [phone] Allergies Active Allergy Reactions Criticality Noted Date Comments Lisinopril Angioedema High 04/20/2018 Metformin Unknown 04/29/2015 Medications No known medications Surgical History Surgery Date Site/Laterality Comments HYSTERECTOMY Medical History Medical History Date Comments Hypertension Diabetes mellitus ([facility] V24, [facility] V28) Social History Tobacco Use Types [...] ID:[id number] Group ID:[id number] Type:Not on file Address: [place] [address] [place] [address] Care Teams Certified Master Locksmith Relationship Specialty Start Date End Date Oralia Michelle [address] [place] [address] PCP - General Family Medicine 01/24/24
--- OUTSIDE RECORDS SUMMARY | 2024-06-24 08:10 | XMS_ITS | Clinical Summary ---
Author Organization [employer] Address [address] [place] [address] 7t [place] [address] Care Team Providers Care Production Control Technologist Name Role Phone Name, Kirby MOSLEY Primary Care Provider [phone] Allergies Active Allergy Reactions Criticality Noted Date [...] 25 Active Insulin Disposable Pump (Omnipod 5 [id number] Pods Gen 5) misc as directed 03/01/19 [...] Type Department Care Team Description 05/20/[address] [address] Sangeeta Perdomo [place] august recalls 04/30/2024 10:15 AM EDT Office Visit [address] [address] Kirby Evangelista MD Controlled type 2 diabetes mellitus with diabetic nephropathy, with long-term current use of insulin ([facility]) (Primary Dx); Age-related osteoporosis without current pathological fracture; On statin therapy 04/29/[address] [address] Kirby Evangelista MD telephone call 04/19/2024 Patient Outreach [address] [address] Kirby Evangelista MD Pre-visit Planning (SDOH Screening [...] Description 09/04/2024 9:45 AM EDT Office Visit [facility] [address] [place], [place] [phone] Name, MD Kirby [address] [place] [address] Health Maintenance Due Date Last Done Comments [...] nephropathy, with long-term current use of insulin ([facility]) POCT GLUCOSE Routine 04/30/2024 10:16 AM EDT Controlled type 2 diabetes mellitus with diabetic nephropathy, with long-term current use of insulin ([facility]) HEPATITIS C VIRAL RNA, QUANTITATIVE, REAL-TIME [...] Load <15 NOT DETECTED NOT DETECTED IU/mL [facility] HCV Log PCR <1.18 NOT DETECTED NOT DETECTED Log IU/mL [facility] Comment:For additional infor mation, please refer tohttp://education.Ocapi/faq/JVD11w5(This link is being provided for informational/educational purposes only.)THIS TEST WAS PERFORMED AT:[employer] [place] [phone] VINSON MD Blood 11/14/2023 9:38 AM EDT 11/14/2023 9:38 AM EDT us Oralia Michelle BLOOD BANK ASSISTANT LAB BLOOD ORDERABLES Final Resu lt [facility] [address] [place] [phone] * BI Mammogram Screening Tomosynthesis Bilateral (09/21/2023 8:00 AM EDT) Anatomical Region Laterality Modality Breast Bilateral Mammography 09/21/2023 8:00 AM EDT Narrative 10/16/2023 2:50 AM EDT ? [facility] ? [address] ?[place], [place] [address] ? Mammography Report ? Signed ? Patient: Brenner Vincent,Akua ?MR#: [id number] ?? [id number] ? : 1950 ?Acct:[id number] ? Age/Sex: 72 / F ?ADM Date: 09/21/23 ? Loc: HO.MAMMO ? Attending Dr: Oralia Michelle DAIRY MANAGER ? Ordering Physician: Oralia Michelle DAIRY MANAGER ?Results: 2Benign ?? Findings ? Date of Service: 09/21/23 ?Follow Up: 1 Year From Orig ?? inal Mammogram ? Procedure(s): MM tomosynthesis screening BI ?? Accession Number(s): [id number] ? cc: Oralia Michelle DAIRY MANAGER ? EXAMINATION: ?? MM SCREENING DIGITAL BREAST [...] DD/ 0800 ? TD/TT: 09/21/23 0809 ? Lead Principal Technical Architect: ? Procedure Note Donsaige, Image - 10/16/2023 [facility] [address] [place] [address] [place] [address] Mammography Report Signed Patient: Akua EasleyMR#: [id number] : 1950cct:[id number] Age/Sex: 72 / FADM Date: 09/21/23 Loc: HO.MAMMO Attending Dr: Oralia Michelle DAIRY MANAGER Ordering Physician: Oralia Michelle NPResults: 2Benign Findings Date of Service: 09/21/23Follow Up: 1 Year From Orig inal Mammogram Procedure(s): MM tomosynthesis screening BI Accession Number(s): [id number] cc: Oralia Michelle DAIRY MANAGER EXAMINATION: MM SCREENING DIGITAL BREAST TOMOSYNTHESIS, BILATERAL [...] 10/16/23 0247 DD/ 0800 TD/TT: 09/21/23 0809 Lead Principal Technical Architect: Oralia Michelle BLOOD BANK ASSISTANT IMG BI PROCEDURES Final Result * Lipid Panel, Standard (02/09/2023 8:55 AM EST) Triglycerides 51 <150 mg/dL [facility] Comment:Desirable Triglyceri de: less than 150 mg/dLBorderline High Triglyceride 150-199 mg/dLHigh Triglyceride: 200-499 mg/dLVery High Triglyceride: greater than or equal to 5OO mg/dL Cholesterol 104 <200 mg/dL [facility] Comment:Desirable Cholestero l: less than 200 mg/dLBorderline High Cholesterol: 200-239 mg/dLHigh Cholesterol: greater than 239 mg/dL LDL Cholesterol Calculated 49 <100 mg/dL [facility] Comment:Desirable LDL: less than 100 mg/dLNear Optimal/Above Optimal LDL: 110- 129 mg/dLBorderline High LDL: 130-159 mg/dLHigh LDL: 160-189 mg/dLVery High LDL: greater than or equal to 190 mg/dL HDL Cholesterol 45 >40 mg/dL [facility] Comment:Desirable HDL: great er than 40 mg/dL Note: This HDL assay may give artificially low results in patients with liver disease. 02/09/2023 8:55 AM EST 02/09/2023 10:45 AM EST us Generic External Data Provider LAB BLOOD ORDERAB LES Final Result [facility] [address] [place] [phone] from Last 3 Months or Most Recently Relevant to Health Maintenance Insurance [facility] MEDICARE ADVANTAGE Care Teams Production Control Technologist Relationship Specialty Start Date End Date Name, MD Kirby [address] [place] [address] PCP - General Internal Medicine 10/25/23
--- OUTSIDE RECORDS SUMMARY | 2024-06-24 08:10 | XMS_ITS | Patient Health Record ---
Author Organization [facility] Address [address] [place] [address] Care Team Providers Care Verification Lead Name Role Phone Jenifer Xiao Primary Care Provider Goyo Alfonso Jr Unavailable [phone] Allergies Allergen (clinical drug ingredient) Drug/Non Drug [...] Problem Status W/U Status Risk Notes Problem [id number] Colon cancer screening (Z12.11) Active confirmed Problem [id number] Gastroesophageal reflux disease without esophagitis (K21.9) Active confirmed Plan Of Treatment Future Test Test Name Order Date COLONOSCOPY 04/29/2015 Insurance Providers Payer Name Payer Address Payer Phone Subscriber Number Group Number Insured Name Patient Relationship to Insured Coverage Start Date Coverage End Date MEDICARE OF [place] [address] [place] [address] [phone] [id number] DMITRI RENÉ Self - patient is the insured Medical (General) History Medical History History ICD Code colonoscopy 11-12-2008 egd 03-08-2000 reflux colon polyps substernal burning and pain type 2 diabetes mellitus Denies [place],CVA,Lung disease,renal disease Surgical History Surgery Date(Month/Year) hysterectomy kidney stone removal
[2024-06-24 08:50] LABS: Alanine Aminotransferase 19 U/L (0-31); Albumin Level 4.1 g/dL (3.5-5.0); Alkaline Phosphatase 88 U/L (39-117); Anion Gap 11 (12-20); Aspartate Amino Transferase 19 U/L (5-31); Bilirubin Total 0.3 mg/dL (0.0-1.0); Blood Urea Nitrogen 21 mg/dL (9-16); Calcium 9.1 mg/dL (8.4-10.2); Carbon Dioxide 25 mmol/L (22-29); Chloride 110 mmol/L (96-108); Cholesterol 122 mg/dL (<200); Estimated Glomerular Filt Rate > 60; Glucose Random 128 mg/dL (60-115); HDL Cholesterol 49 mg/dL (>40); LDL Cholesterol Calculated 59 mg/dL (<100); Potassium 4.1 mmol/L (3.3-5.1); Sodium 142 mmol/L (135-145); Total Protein 6.7 g/dL (6.5-8.0); Triglycerides 73 mg/dL (<150)
[2024-06-24 09:44] LABS: Microalbum/Creatinine Ratio Ur 5.5 ug/mg cr (<30)
== END 2024-06-24 08:05 | disposition home or self-care (01) ==
LOC: HO.LAB 08:04
PROVIDERS: Nurse Practitioner Adult Health; PCP Internal Medicine Geriatric Medicine; Visit Provider Internal Medicine Geriatric Medicine
DX: E11.21 Type 2 diabetes mellitus with diabetic nephropathy (principal); Z79.4 Long term (current) use of insulin; M81.0 Age-related osteoporosis without current pathological fracture; Z79.899 Other long term (current) drug therapy; E11.65 Type 2 diabetes mellitus with hyperglycemia
CPT/HCPCS: 36415; 80053; 80061; 82043; 82570

== ENCOUNTER 2024-07-03 08:19 | Outpatient (AMB) | payer MEDICARE, SELFPAY ==
--- OUTSIDE RECORDS SUMMARY | 2024-07-03 08:30 | XMS_ITS | Patient Health Record ---
Author Organization [facility] Address [address] [place] [address] Care Team Providers Care Home Health Registered Nurse Name Role Phone Jenifer Xiao Primary Care Provider Goyo Alfonso Jr Unavailable [phone] Allergies Allergen (clinical drug ingredient) Drug/Non [...] Problem Status W/U Status Risk Notes Problem [id number] Colon cancer screening (Z12.11) Active confirmed Problem [id number] Gastroesophageal reflux disease without esophagitis (K21.9) Active confirmed Plan Of Treatment Future Test Test Name Order Date COLONOSCOPY 04/29/2015 Insurance Providers Payer Name Payer Address Payer Phone Subscriber Number Group Number Insured Name Patient Relationship to Insured Coverage Start Date Coverage End Date MED[employer]ARE OF [place] [address] [place] [address] [id number] RIZVIMAJORRENÉ Self - patient is the insured Medical (General) History Medical History History ICD Code colonoscopy 11-12-2008 egd 03-08-2000 reflux colon polyps substernal burning and pain type 2 diabetes mellitus Denies [place],CVA,Lung disease,renal disease Surgical History Surgery Date(Month/Year) hysterectomy kidney stone removal
--- OUTSIDE RECORDS SUMMARY | 2024-07-03 08:30 | XMS_ITS | Clinical Summary ---
Author Organization [facility] Address [address] [place] [address] Phone Care Team Providers Care Meat Apprentice Name Role Phone AlexiaricardoTienOralia Primary Care Provider [phone] Allergies Active Allergy Reactions Criticality Noted Date Comments Lisinopril Angioedema High 04/20/2018 Metformin Unknown 04/29/2015 Medications No known medications Surgical History Surgery Date Site/Laterality Comments HYSTERECTOMY Medical History Medical History Date Comments Hypertension Diabetes mellitus ([facility] V24, [facility] V28) Social History Tobacco Use Types Packs/Day [...] ID:[id number] Group ID:PMA Type:Not on file Address: [place] [address] [place] [phone] Care Teams Meat Apprentice Relationship Specialty Start Date End Date Oralia Michelle [address] [place] [address] PCP - General Family Medicine 01/24/24
--- NOTE | 2024-07-03 09:30 | MHC.AMDMED ---
Intake Intake Visit Reasons: 30 min Churn Operator Required: No Accompanied by: Self / Same As Patient Allergies metformin Allergy (Unknown, Verified 04/01/24 08:21) GI discomfort HPI Comprehensive Diabetes Asmnt Most Recent Diabetes Results: Microalb/Creat Ratio 5.5 ug/mg cr (<30) 06/24/24 Cholesterol 122 mg/dL (<200) 06/24/24 HDL Cholesterol 49 mg/dL (>40) 06/24/24 Triglycerides 73 mg/dL (<150) 06/24/24 Creatinine 0.74 mg/dL (0.5-1.4) 06/24/24 Blood Urea Nitrogen 21 mg/dL (9-16) H 06/24/24 Sodium 142 mmol/L (135-145) 06/24/24 Potassium 4.1 mmol/L (3.3-5.1) 06/24/24 Chloride 110 mmol/L (96-108) H 06/24/24 Carbon Dioxide 25 mmol/L (22-29) 06/24/24 Calcium 9.1 mg/dL (8.4-10.2) 06/24/24 AST 19 U/L (5-31) 06/24/24 ALT 19 U/L (0-31) 06/24/24 Total Protein 6.7 g/dL (6.5-8.0) 06/24/24 Albumin 4.1 g/dL (3.5-5.0) 06/24/24 [facility] Medical History (Updated 04/01/24 @ 08:53 by Simona Sullivan, [facility]) GERD (gastroesophageal reflux disease) Fibromyalgia Osteoporosis Vitamin D deficiency HLD (hyperlipidemia) HTN (hypertension) T2DM (type 2 diabetes mellitus) Type 2 diabetes mellitus with hyperglycemia Surgical History (Updated 04/01/24 @ 08:28 by DAYTON Carpenter) History of colonoscopy History of kidney stones Hx of hysterectomy Family History Father COPD (chronic obstructive pulmonary disease) Mother Osteoporosis Type 2 diabetes mellitus Social History Household Members: Spouse and Children Household Members Other:: , and adopted son Alcohol intake: former Patient Tobacco Use Status: Never used Tobacco Assessment & Plan Assessment & Plan (1) Type 2 diabetes mellitus with hyperglycemia: Code(s): E11.65 - Type 2 diabetes mellitus with hyperglycemia Plan: Patient presents for pump training for Omnipod 5 with Dexcom G7 The following topics were reviewed today: -Omnipod 5 jorden Omnipod user name: [email or web address] Password:[email or web address] [email or web address] Screen lock:[id number] Patient received a new cell phone, downloaded Dexcom G7 jorden and connected Dexcom G7 sensor. Patient is new cell phone is not compatible with Omnipod 5 jorden. Instructed patient that at next pod change she will need to transition back to Omnipod 5 manager of compliance. Gave patient instructions on how to connect current Dexcom G7 sensor to Omnipod 5 manager of compliance Patient given Omnipod customer service number if she needs assistance in connecting sensor Patient will follow-up with vp of digital marketing in 2 weeks Coding Level of Care Code Est Pt Level 1 (33982) Diagnoses Type 2 diabetes mellitus with hyperglycemia E11.65
== END 2024-07-03 09:34 | disposition home or self-care (01) ==
LOC: HO.ENCR 08:20
PROVIDERS: Visit Provider Registered Nurse Diabetes Educator
DX: E11.65 Type 2 diabetes mellitus with hyperglycemia (principal)

== ENCOUNTER → 2024-07-03 08:19 | Outpatient (BNVA) | payer MEDICARE, SELFPAY | PROVIDERS: Visit Provider Registered Nurse Diabetes Educator | DX: E11.65 Type 2 diabetes mellitus with hyperglycemia (principal) | CPT/HCPCS: 99211 ==

== ENCOUNTER 2024-07-04 08:42 | Outpatient (AMB) | payer OTHER, SELFPAY ==
--- NOTE | 2024-07-04 08:47 | A.OFFVIS_ITS ---
Vital Signs 07/04/24 08:50 Height 5 ft 2.01 in Weight 133 lb 13.129 oz BMI 24.5 BP 116/60 Blood Pressure Location Lt brachial Position Sitting Pulse 87 Pulse Source Pulse Oximeter Pulse Oximetry (%) 98 Oxygen Delivery Method Room Air Intake Visit Reasons: Osteoporosis Intake Note: Patient present today for Osteoporosis follow up. Contract Driver Required: No Accompanied by: Self / Same As Patient Allergies metformin Allergy (Unknown, Verified 07/04/24 08:50) GI discomfort Medication List - Last Reconciled 07/04/24 by Ifeanyi Hoskins MD acetone (urine) test (Ketone Urine Test strips) As directed aspirin 81 mg PO DAILY atorvastatin 80 mg PO DAILY bisacodyl (Dulcolax (bisacodyl)) 20 mg (4 x 5 mg) PO ONCE 1 day blood-glucose meter As directed 3x/day blood-glucose meter ([employer] Verio Flex Meter) As directed test 4 times a day blood-glucose sensor (Dexcom G7 Sensor device) continous every 10 days calcium carbonate 600 mg PO BID cholecalciferol (vitamin D3) 50 mcg PO DAILY dulaglutide (Trulicity) 1.5 mg (0.5 mL) subcut QWEEK insulin glargine (Lantus Solostar U-100 Insulin) 16 units subcut QPM PRN insulin lispro 70 units daily via pump subcutaneously use as directed; 30 days MDD 70 units NS insulin pump cart,auto,BT,G6/7 (Omnipod 5 G6-G7 Pods (Gen 5) subcutaneous cartridge) As directed insulin pump cart,auto,BT-cntr (Omnipod 5 G6 Intro Kit (Gen 5) subcutaneous cartridge with controller) As directed insulin pump cart,automated,BT (Omnipod 5 G6 Pods (Gen 5) subcutaneous cartridge) DIRECTED insulin syringe-needle U-100 (BD Insulin Syringe Ultra-Fine) qid prn pump failure lancets ([employer] [place] For ExpecteensTouch Delica Plus Lancet) USE TO TEST 4 TIMES A DAY losartan 25 mg PO DAILY 90 days omeprazole 40 mg PO DAILY OneTouch Verio test strips (blood sugar diagnostic) 3 times a day prn sensor failure or to confirm glucose NS pen needle, diabetic (BD Sheree 2nd Gen Pen Needle) USE DIRECTED FOUR TIMES A DAY polyethylene glycol 3350 (Miralax) 238 grams PO ONCE HPI Comments Details: 73 YO F with PMHx T2DM, HLD, Osteoporosis who is seen in F/U today for Osteoporosis. She has a history of Osteoporosis due to early menopause. Received first Prolia injection 09/03/18. Received 2nd dose of Prolia 03/06/2019. Third Dose of Prolia 10/29/2019. Tolerated this well. She then cancelled her 4th dose and has not followed up or had labs repeated since. She has long standing history of Osteoporosis. Risk factors include early surgical menopause with bilateral oophorectomy at the age of 41. She was treated with Fosamax for 1 year, followed by IV reclast from [id number] (received 4 doses). She does have a history of kidney stones, one episode in the past. Never used steroids or AC, but does use daily PPI for many years. Did have a fragility fracture in 2017 of the R leg/ankle. Menarche age 15, , never breastfed. Menopause age 41 after bilateral oophorectomy. She has lost 1.5 inches of height. She has 0-2 servings of dairy daily in the form of cheese and milk. She takes Calcium 600 mg PO BID daily. Taking Vitamin D 2000 IU daily. She does have a history of Osteoporosis in her family. DXA: 04/07/2021 FINDINGS: AP SPINE L1-L4: Current: BMD 0.703 g/cm2, Z-score -2.5, T-score -4.0, osteoporosis, 2.0% increase from baseline (<5% change is not significant). Baseline: BMD 0.689 g/cm2. LEFT FEMUR, NECK: Current: BMD 0.614 g/cm2, Z-score -1.6, T-score -3.0, osteoporosis. Baseline: BMD 0.618 g/cm2. LEFT FEMUR, TOTAL: Current: BMD 0.706 g/cm2, Z-score -1.2, T-score -2.4, osteopenia, 0.9% increase from baseline (<5% change is not significant). Baseline: BMD 0.700 g/cm2. She never started Tymlos for osteoporosis because co-pay was too high for both Tymlos and Evenity Labs: Laboratory Tests 12/07/20 12/07/20 08:00 08:00 Creatinine 0.77 Estimated GFR > 60 25-OH Vitamin D Total 40.7 PTH Intact 51 Calcium (PTH Intact) 9.7 started Evenity 11/2023 at [facility] . No side effects except injection site reaction. The patient is a 73-year-old female presenting with low bone density. She began receiving Evenity injections in November and is seven injections into the treatment. Initially, she experienced severe pain in her arms after the first injection, but subsequent doses have caused only minor swelling and pressure. There are four more Evenity injections planned, leading to the completion of tr eatment in November. Following this, the patient is slated to transition to Prolia injections every six months due to her low bone density. No fractures have occurred since her last visit, indicating stability. [facility] Medical History (Updated 04/01/24 @ 08:53 by Simona Sullivan [facility]) GERD (gastroesophageal reflux disease) Fibromyalgia Osteoporosis Vitamin D deficiency HLD (hyperlipidemia) HTN (hypertension) T2DM (type 2 diabetes mellitus) Type 2 diabetes mellitus with hyperglycemia Surgical History History of colonoscopy History of kidney stones Hx of hysterectomy Family History Father COPD (chronic obstructive pulmonary disease) Mother Osteoporosis Type 2 diabetes mellitus Social History Household Members: Spouse and Children Household Members Other:: , and adopted son Alcohol intake: former Patient Tobacco Use Status: Never used Tobacco Physical Exam Vital Signs: BMI result Body Mass Index 24.5 Assessment & Plan Assessment & Plan (1) Osteoporosis: Code(s): M81.0 - Age-related osteoporosis without current pathological fracture Category: Medical Qualifiers: Osteoporosis type: unspecified Presence of current pathological fr acture: unspecified Qualified Code(s): M81.0 - Age-related osteoporosis without current pathological fracture Plan: Secondary workup was negative. She has a very low bone density and history of fragility fractures of the right ankle. She had very high risk for fragility fracture in the future. On Evenity since 11/2023 Plan is to continue the Evenity for full years course until 11/2024 and then will probably transition to Prolia at that point 1. Low Bone Density The patient is currently undergoing Evenity injections to manage low bone density. After a challenging start, the patient is now tolerating the regimen with minor side effects. Following completion of 12 doses, given the patient's stability, the treatment will shift to Prolia injections biannually to continue improving bone density and minimize fracture risks. Regular follow-ups will ensure the effectiveness and continued tolerance of this long-term plan. The patient and I discussed her current Uvenity treatment for low bone density, acknowledging the initial severe pain following the first injection but improved tolerance after subsequent doses. We reviewed the transition to Prolia following the completion of the current injection series. The benefits, such as longer intervals between treatments and potential improvement in bone density, were emphasized. The patient consented to this plan and was informed of the necessity of follow-up appointments to monitor progress and make any necessary adjustments. - Continue with monthly Evenity injections as scheduled. - Report any severe side effects or concerns. - Prepare for a transition to Prolia injections after the November session. - Attend follow-up appointments to monitor progress and treatment effectiveness. - Maintain awareness of any bone pain or new symptoms and report them promptly. The patient had an opportunity to ask questions regarding treatment plan. The patient expressed understanding and agreement with the above treatment plan. Patient was informed and verbally consented to the use of an ambient scribe for clinic note documentation during this visit. Coding Level of Care Code Est Pt Level 3 (48608) Diagnoses Osteoporosis, unspecified osteoporosis type, unspecified pathological fracture presence M81.0 Osteoporosis type: unspecified Presence of current pathological fracture: unspecified
[2024-07-04 08:50] VITALS: BP 116/60; PULSE 87; O2SAT 98; BMI 24.5
--- OUTSIDE RECORDS SUMMARY | 2024-07-04 09:06 | XMS_ITS | Clinical Summary ---
Author Organization [employer] Address [address] [place] [address] [address] [place] [address] Care Team Providers Care Soft Work Wrapper Examiner Name Role Phone Name, Kirby MOSLEY Primary Care Provider Allergies Active Allergy Reactions Criticality Noted Date [...] UNITS PER DAY VIA INSULIN PUMP 02/26/19 Active Insulin Disposable Pump (Omnipod 5 [id number] Pods Gen 5) misc as directed 03/01/19 Active Active Problems Problem Noted Date Diagnosed Date Colon cancer screening 06/28/2023 Type 2 diabetes mellitus 03/13/2018 Tubular adenoma of colon 03/13/2018 Osteoporosis 03/13/2018 Hyperlipidemia 03/13/2018 H/O: hysterectomy 03/13/2018 Gastroesophageal reflux disease without esophagi tis 03/13/2018 Essential hypertension 03/13/2018 Resolved Problems Problem Noted Date Diagnosed Date Resolved Date Tachycardia 06/28/2023 04/30/2024 Enlargement of neck 06/28/2023 05/01/19 Edema of lower extremity 07/24/201812/2024 Tongue swelling 03/13/2018 04/30/2024 Encounters Date Type Department Care Team Description 06/24/2024 Orders Only GENERIC EXTERNAL DATA DEPARTMENT Provider, Generic External Data 05/20/[address] [address] Sangeeta Perdomo [place] august recalls 04/30/2024 10:15 AM EDT Office Visit [address] [address] Kirby Evangelista MD Controlled type 2 diabetes mellitus with diabetic nephropathy, with long-term current use of insulin ([facility]) (Primary Dx); Age-related osteoporosis without current pathological fracture; On statin therapy 04/29/[address] [address] Kirby Evangelista MD telephone call 04/19/2024 Patient Outreach [address] [address] Kirby Evangelista MD Pre-visit Planning (SDOH Screening negative and Tobacco screening negative) from Last 3 Months Immunizations Immunization Administration Dates Next Due Hep B, adult [...] Description 09/04/2024 9:45 AM EDT Office Visit [facility] [address] [place], [place] [phone] Name, MD Kirby [address] [place] [address] Health Maintenance Due Date Last Done Comments CT Colonography 1950 Colonoscopy 1950 Colorectal Cancer Screening 1950 FIT DNA/Cologuard 1950 FIT 1950 FOBT 1950 Sigmoidoscopy 1950 Diabetes: Foot Exam 1962 Eye Exam 1962 Alcohol/Substance Use Screening 1964 Zoster Vaccines (1 of 2) 2002 RSV Patients and Patients Aged 60 years or older (1 - Risk 60-74 years 1-dose series) 2012 COVID-19 Vaccine ( season) 2024 10/20/2023, 12/15/2022, 10/13/2021, Additional history exists Depression Screening 09/17/2024 09/18/2023, 09/18/19 24 Tobacco Screening 09/17/2024 09/18/2023 Diabetes: Hemoglobin A1C 10/31/2024 025, 08/10/2022, 12/07/2020, Additional history exists SDOH Screening 04/19/2025 04/19/2024 Lipid Panel 06/24/2025 06/24/2024, 12/2 02/2022, 12/07/2020 Mammogram 09/20/2025 09/21/2023, 06/20, 10/31/2019, Additional history [...] Procedure Name Priority Date/Time Associated Diagnosis Comments LIPID PANEL, STANDARD Routine 06/24/2024 8:13 AM EDT Controlled type 2 diabetes mellitus with diabetic nephropathy, with long-term current use of insulin ([facility]) Age-related osteoporosis without current pathological fracture On statin therapy COMPREHENSIVE METABOLIC PANEL Routine 06/24/2024 8:13 AM EDT Controlled type 2 diabetes mellitus with diabetic nephropathy, with long-term current use of insulin ([facility]) Age-related osteoporosis without current pathological fracture On statin therapy ALBUMIN, RANDOM URINE W/CREATININE Routine 06/24/2024 8:09 AM EDT POCT GLYCATED HEMOGLOBIN, TOTAL Routine 04/30/2024 10:16 AM EDT Controlled type 2 diabetes mellitus with diabetic nephropathy, with long-term current use of insulin (CMS/HCC) POCT GLUCOSE Routine 04/30/2024 10:16 AM EDT Controlled type 2 diabetes mellitus with diabetic nephropathy, with long-term current use of insulin (CMS/HCC) HEPATITIS C VIRAL RNA, QUANTITATIVE, REAL-TIME PCR Routine 11/14/2023 9:38 AM EDT Routine health maintenance BI MAMMOGRAM SCREENING TOMOSYNTHESIS BILATERAL Routine 09/21/2023 8:00 AM EDT Breast cancer screening by mammogram from Last 3 Months or Most Recently Relevant to Health Maintenance Results * Lipid Panel, Standard (06/24/2024 8:13 AM EDT) Triglycerides 73 <150 mg/dL [facility] Comment:Desirable Triglyceri de: less than 150 mg/dLBorderline High Triglyceride 150-199 mg/dLHigh Triglyceride: 200-499 mg/dLVery High Triglyceride: greater than or equal to 5OO mg/dL Cholesterol 122 <200 mg/dL [facility] Comment:Desirable Cholestero l: less than 200 mg/dLBorderline High Cholesterol: 200-239 mg/dLHigh Cholesterol: greater than 239 mg/dL LDL Cholesterol Calculated 59 <100 mg/dL [facility] Comment:Desirable LDL: less than 100 mg/dLNear Optimal/Above Optimal LDL: 110- 129 mg/dLBorderline High LDL: 130-159 mg/dLHigh LDL: 160-189 mg/dLVery High LDL: greater than or equal to 190 mg/dL HDL Cholesterol 49 >40 mg/dL [facility] Comment:Desirable HDL: great er than 40 mg/dL Note: This HDL assay may give artificially low results in patients with liver disease. Blood Venous blood specimen / Unknown 06/24/2024 8:13 AM EDT 06/24/2024 8:13 AM EDT us Kirby Evangelista MD LAB BLOOD ORDERABLES Final Resul t [facility] [address] [place] [address] [phone] * (ABNORMAL) Comprehensive Metabolic Panel (06/24/2024 8:13 AM EDT) Sodium 142 135 - 145 mmol/L [facility] Potassium 4.1 3.3 - 5.1 mmol/L [facility] Chloride 110(H) 96 - 108 mmol/L [facility] Carbon Dioxide 25 22 - 29 mmol/L [facility] Anion Gap 11(L) 12 - 20 [facility] Urea Nitrogen (BUN) 21(H) 9 - 16 mg/dL [facility] Creatinine, Serum 0.74 0.5 - 1.4 mg/dL [facility] Estimated Glomerular Filt Rate >60 [facility] Comment:Chronic Kidney Disea se: Estimated GFR < 60 mL/min/1.26l8Uezrhq Kidney Disease: Estimated GFR < 15 mL/min/1.73m2 Glucose 128(H) 60 - 115 mg/dL [facility] Calcium 9.1 8.4 - 10.2 mg/dL [facility] Bilirubin, Total 0.3 0.0 - 1.0 mg/dL [facility] Aspartate Amino Transferase 19 5 - 31 U/L [facility] Alanine Aminotransferase 19 0 - 31 U/L [facility] Total Protein 6.7 6.5 - 8.0 g/dL [facility] Albumin Level 4.1 3.5 - 5.0 g/dL [facility] Alkaline Phosphatase 88 39 - 117 U/L [facility] Blood Venous blood specimen / Unknown 06/24/2024 8:13 AM EDT 06/24/2024 8:13 AM EDT us Kirby Evangelista MD LAB BLOOD ORDERABLES Final Resul t Performing Organization Address [facility]/ZIP Co de Phone Number [facility] [address] [place] [address] [phone] * Albumin, Random Urine W/Creatinine (06/24/2024 8:09 AM EDT) Pathologist [facility] Creatinine, Urine 198.00 mg/dL [facility] Microalbumin Urine 11.0 mg/L [facility] Microalbum Creatinine Ratio Ur 5.5 <30 ug/mg cr [facility] Comment:Albumin/Creatinine R atio Reference Ranges: Normal: < 30 ug/mg creatinine Microalbuminuria: 30 - 300 ug/mg creatinineClinical Albuminuria: > 300 ug/mg creatinine 06/24/2024 8:09 AM EDT 06/24/2024 9:03 AM EDT Generic External Data Provider LAB URINE ORDERAB LES Final Result [facility] [address] [place] [phone] * POCT HGB A1C (04/30/2024 10:16 AM EDT) Pathologist [facility] Hemoglobin A1C 5.9 4.0 - 6.0 % QC Media Lot # [id number] Lot# Expiration Date Blood 04/30/2024 10:1 6 AM EDT us Kirby Evangelista MD POINT OF CARE TEST ENTER/EDIT OR DERABLES Final Result * POCT Glucose (04/30/2024 10:16 AM EDT) Pathologist [facility] Glucose Blood, POC 199 60 - 200 mg/dL QC Media Lot # [id number] Lot# Expiration Date , Blood Capillary blood specimen / Unknown 04/30/2024 10:16 AM EDT Kirby Evangelista MD POINT OF CARE TEST ENTER/EDIT OR DERABLES Final Result * Hepatitis C Viral RNA, Quantitative, Real-Time PCR (11/14/2023 9:38 AM EDT) Hepatitis C Viral Load <15 NOT DETECTED NOT DETECTED IU/mL [facility] HCV Log PCR <1.18 NOT DETECTED NOT DETECTED Log IU/mL [facility] Comment:For additional infor mira, please refer [email or web address]/faq/[email or web address](This link is being provided for informational/educational purposes only.)THIS TEST WAS PERFORMED AT:[facility] [place] [phone] VINSON MD Blood 11/14/2023 9:38 AM EDT 11/14/2023 9:38 AM EDT Oralia Michelle [employer] [employer] LAB BLOOD ORDERABLES Final Resu lt [facility] [address] [place] [address] [phone] * BI Mammogram Screening Tomosynthesis Bilateral (09/21/2023 8:00 AM EDT) Anatomical Region Laterality Modality Breast Bilateral Mammography 09/21/2023 8:00 AM EDT Narrative 10/16/2023 2:50 AM EDT ? [facility] [place] ? [address] ?[place] [address] ? Mammography Report ? Signed ? Patient: Brenner Vincent,Akua ?MR#: [id number] ?? [id number] ? : 1950 ?Acct:[id number] ? Age/Sex: 72 / F ?ADM Date: 09/20/24 ? Loc: HO.MAMMO ? Attending : Oralia Michelle CLINICAL MANAGER HOME CARE ? Ordering Physician: Oralia Michelle CLINICAL MANAGER HOME CARE ?Results: 2Benign ?? Findings ? Date of Service: 09/21/23 ?Follow Up: 1 Year From Orig ?? inal Mammogram ? Procedure(s): MM tomosynthesis screening BI ?? Accession Number(s): [id number] ? cc: Oralia Michelle CLINICAL MANAGER HOME CARE ? EXAMINATION: ?? MM SCREENING DIGITAL BREAST TOMOSYNTHESIS, BILATERAL ? CLINICAL INFORMATION: ? Screening. Asymptomatic. ? COMPARISON: ?? Mammography: This study is compared with prior exams dating back to ? 2018. ? TECHNIQUE: ?? Digital breast tomosynthesis is [...] by Lisa Hernandez MD in OV> ? 10/16/237 ? DD/ 0800 ? TD/TT: 09/21/23 0809 ? Bank Reconciliator: ? Procedure Note Donotuseinterpreter, Image - 10/16/2023 [place] [facility] [address] [place], [place] [address] Mammography Report Signed Patient: Akua EasleyMR#: [id number] : 1950cct:[id number] Age/Sex: 72 / FADM Date: 09/21/23 Loc: HO.MAMMO Attending Dr: Oralia Michelle CLINICAL MANAGER HOME CARE Ordering Physician: Oralia Michelle NPResults: 2Benign Findings Date of Service: 09/21/23Follow Up: 1 Year From Orig inal Mammogram Procedure(s): MM tomosynthesis screening BI Accession Number(s): [id number] cc: Oralia Michelle CLINICAL MANAGER HOME CARE EXAMINATION: MM SCREENING DIGITAL BREAST TOMOSYNTHESIS, BILATERAL [...] 10/16/23 0247 DD/ 0800 TD/TT: 09/21/23 0809 Bank Reconciliator: Oralia Michelle [employer] [employer] IMG BI PROCEDURES Final Result from Last 3 Months or Most Recently Relevant to Health Maintenance Insurance [facility] [employer] Care Teams Soft Work Wrapper Examiner Relationship Specialty Start Date End Date Name, MD Kirby [address] [place] [address] PCP - General Internal Medicine 10/25/23
--- OUTSIDE RECORDS SUMMARY | 2024-07-04 09:06 | XMS_ITS | Patient Health Record ---
Author Organization [facility] Address [address] [place] [address] Care Team Providers Care System Software Developer Name Role Phone Jenifer Xiao Primary Care [...] Problem Status W/U Status Risk Notes Problem [id number] Colon cancer screening (Z12.11) Active confirmed Problem [id number] Gastroesophageal reflux disease without esophagitis (K21.9) Active confirmed Plan Of Treatment Future Test Test Name Order Date COLONOSCOPY 04/29/2015 Insurance Providers Payer Name Payer Address Payer Phone Subscriber Number Group Number Insured Name Patient Relationship to Insured Coverage Start Date Coverage End Date MEDICARE OF [place] [address] [place] [address] [id number] Self - patient is the insured Medical (General) History Medical History History ICD Code colonoscopy 11-12-2008 egd 03-08-2000 reflux colon polyps substernal burning and pain type 2 diabetes mellitus Denies MT,CVA,Lung disease,renal disease Surgical History Surgery Date(Month/Year) hysterectomy kidney stone removal
--- OUTSIDE RECORDS SUMMARY | 2024-07-04 09:06 | XMS_ITS | Clinical Summary ---
Author Organization [facility] Address [address] [place] [address] Phone Care Team Providers Care Drink Mixer Name Role Phone AlexiaricardoTienOralia Primary Care Provider [phone] Allergies Active Allergy Reactions Criticality Noted Date Comments Lisinopril Angioedema High 04/20/2018 Metformin Unknown 04/29/2015 Medications No known medications Surgical History Surgery Date Site/Laterality Comments HYSTERECTOMY Medical History Medical History Date Comments Hypertension Diabetes mellitus ([facility] V24, [facility] V28) Social History Tobacco Use Types Packs/Day [...] ID:[id number] Group ID:[id number] Type:Not on file Address: [place] [address] [place] [id number] Care Teams Drink Mixer Relationship Specialty Start Date End Date Oralia Michelle [address] [place] [address] PCP - General Family Medicine 01/24/24
== END 2024-07-04 09:02 | disposition home or self-care (01) ==
LOC: HO.ENCR 08:43
PROVIDERS: Visit Provider Internal Medicine Endocrinology, Diabetes & Metabolism
DX: M81.0 Age-related osteoporosis without current pathological fracture (principal)
CPT/HCPCS: 99213

== ENCOUNTER → 2024-07-04 08:42 | Outpatient (BNVA) | payer MEDICARE, SELFPAY | PROVIDERS: Visit Provider Internal Medicine Endocrinology, Diabetes & Metabolism | DX: M81.0 Age-related osteoporosis without current pathological fracture (principal) | CPT/HCPCS: 99212 ==

== ENCOUNTER 2024-07-09 07:58 | Outpatient (AMB) | payer MEDICARE, SELFPAY ==
--- NOTE | 2024-07-09 07:06 | A.OFFVIS_ITS ---
Vital Signs 07/09/24 08:04 07/09/24 08:41 Height 5 ft 2 in Weight 134 lb 7.712 oz BMI 24.6 BP 92/48 L 112/78 Blood Pressure Location Rt brachial Position Sitting Pulse 80 Pulse Source Pulse Oximeter Pulse Oximetry (%) 99 Oxygen Delivery Method Room Air Intake Visit Reasons: T2DM Intake Note: Patient presents today for a follow-up on Type 2 Diabetes Mellitus: Last Diabetic eye exam was on: DUE Last Podiatry exam was on: Patient does not see a Subassemblies Wirer Most recent HbA1c: 6.0%, 07/09/2024 Random Glucose- 85 mg/dL, Today Airconditioning Drafting Officer Required: No Accompanied by: Self / Same As Patient Allergies metformin Allergy (Unknown, Verified 07/09/24 08:07) GI discomfort HPI Comments Details: 73 YO F with PMHx T2DM, HLD, Osteoporosis who is seen in F/U today for her diabetes. She is now on a OMNIPOD insulin pump. She was last seen 03/01/24 for diabetes. She is followed by Dr. Hoskins for osteoporosis i and is on Evenity. A1c 07/09/24 6% 03/01/2024 6.5% A1C 11/30/23: 6.5%. She has well-controlled diabetes. Had prior reaction to Ozempic: coughing, metformin: diarrhea She currently takes Trulicity 1.5mg weekly Denies Hypoglycemia No Nephropathy: microalbumin 06/24/24 eGFR>60 microalbumin 11.0 No Retinopathy: ophthalmology Had appt 01/18/2023 she is planning to call to reschedule No neuropathy: denies numbness, tingling or cramping in lower extremity ldl 59 06/24/24 On statin Backup insulin plan Lantus 16 units plus 3 units with meals of NovoLog Basal rate(s) (units/hour) : 12 AM to 7 AM? 1.5 units / hr 7am to 12 noon 1.6 new 12 noon to 12 am 1.5 new Dexcom average glucose: 160 14 day continuous glucose monitor report reviewed Days with CGM data 2 days without data % TIme in ranges: Two % very high (above 250) 20 % high ?(181-250) 76 % in range ?(70-180] 2 % low (69-55) 0 % ?very low (below 54) Interpretation [ well-controlled with bump after breakfast postprandial Total daily dose of insulin 18 units 72% basal 13 units 28% bolus 5.1 units 55% over ride Number boluses per day 0.9] Bolus setting Insulin Carbohydrate Ratio (s) 12 AM to 12 AM? 1:8 Correction Factor / Sensitivity Factor 12 AM to 12 AM? 1:20 Active Insulin Time:? 4 hours Target(s): 12 AM to 12 AM? 130 mg/dL Target threshold: 12 AM to 12 AM? 130 mg/dL He is having some difficulty always pairing her sensor to her pump since having a new phone. She will contact [employer] to trouble shoot this [facility] Medical History (Updated 04/01/24 @ 08:53 by Simona Sullivan [facility]) GERD (gastroesophageal reflux disease) Fibromyalgia Osteoporosis Vitamin D deficiency HLD (hyperlipidemia) HTN (hypertension) T2DM (type 2 diabetes mellitus) Type 2 diabetes mellitus with hyperglycemia Surgical History History of colonoscopy History of kidney stones Hx of hysterectomy Family History Father COPD (chronic obstructive pulmonary disease) Mother Osteoporosis Type 2 diabetes mellitus Social History Household Members: Spouse and Children Household Members Other:: , and adopted son Alcohol intake: former Patient Tobacco Use Status: Never used Tobacco Physical Exam Vital Signs: Last Vital Signs Pulse 80 07/09/24 08:04 BP 92/48 L 07/09/24 08:04 Pulse Ox 99 07/09/24 08:04 Oxygen Delivery Method Room Air 07/09/24 08:04 BMI result Body Mass Index 24.6 Results AMB Hemoglobin A1c AMB Hemoglobin A1c 6.0 % Last Edit by SOUMYA Saini on 07/09/24 08:20 Results Reviewed Results Reviewed: Laboratory Last Values Glucose (Clinic) 85 mg/dL (60-115) 07/09/24 08:09 Assessment & Plan Assessment & Plan (1) Type 2 diabetes mellitus with hyperglycemia: Code(s): E11.65 - Type 2 diabetes mellitus with hyperglycemia Category: Medical Plan: 73 year old with type 2 diabetes on an insulin pump with A1C of 6%. She will contact [facility]ulu directly to work through issues of pairing her sensor to her pump. The patient had an opportunity to ask questions regarding treatment plan. The patient expressed understanding and agreement with the above treatment plan. The patient is aware they should contact our office by phone for worsening glucose readings or for any low blood sugars which may warrant a change in diabetes medication. Compliance is encouraged with medications and any followup testing/consults which may have been ordered. Orders: Orders AMB Hemoglobin A1c Today E11.65 - Type 2 diabetes mellitus with hyperglycemia, Z79.4 - termite helper (current) use of insulin Patient Instructions: Take 15 carb carbohydrate grams to treat a low sugar (3-4 glucose tablets, half a glass of juice or 15 carbohydrate grams of soft candy such as gummie snacks). Recheck your sugar in 15 minutes and re-treat again with 15 carbohydrate grams if low or still with symptoms. Do not drive a car or operate machinery if you do not know what your blood sugar is, if it is low or in excess of 300. Coding Level of Care Code Est Pt Level 4 (68527) Complex EM visit Add On G2211 Diagnoses Type 2 diabetes mellitus with hyperglycemia E11.65
--- OUTSIDE RECORDS SUMMARY | 2024-07-09 08:00 | XMS_ITS | Patient Health Record ---
Author Organization [facility] Address [address] [place] [address] Care Team Providers Care Territory Outside Sales Manager Name Role Phone Jenifer Xiao Primary Care [...] Problem Status W/U Status Risk Notes Problem [id number] Colon cancer screening (Z12.11) Active confirmed Problem [id number] Gastroesophageal reflux disease without esophagitis (K21.9) Active confirmed Plan Of Treatment Future Test Test Name Order Date COLONOSCOPY 04/29/2015 Insurance Providers Payer Name Payer Address Payer Phone Subscriber Number Group Number Insured Name Patient Relationship to Insured Coverage Start Date Coverage End Date MEDICARE OF [place] [employer] [address] [place] [address] [id number] RIZVIMAJORRENÉ Self - patient is the insured Medical (General) History Medical History History ICD Code colonoscopy 11-12-2008 egd 03-08-2000 reflux colon polyps substernal burning and pain type 2 diabetes mellitus Denies [place],CVA,Lung disease,renal disease Surgical History Surgery Date(Month/Year) hysterectomy kidney stone removal
--- OUTSIDE RECORDS SUMMARY | 2024-07-09 08:00 | XMS_ITS | Clinical Summary ---
Author Organization [email or web address] Address [address] [place] [address] [address] [place] [address] Care Team Providers Care Safety Analyst Name Role Phone Name, Kirby MOSLEY Primary [...] 02/26/19 Active Insulin Disposable Pump (Omnipod 5 [id number] Pods Gen 5) misc as directed 03/01/19 [...] Provider, Generic External Data 05/20/[address] [address] Sangeeta Perdomo [place] august recalls 04/30/2024 10:15 AM EDT Office Visit [address] [address] Kirby Evangelista MD Controlled type 2 diabetes mellitus with diabetic nephropathy, with long-term current use of insulin ([facility]) (Primary Dx); Age-related osteoporosis without current pathological fracture; On statin therapy 04/29/[address] [address] Kirby Evangelista MD telephone call 04/19/2024 Patient Outreach [address] [address] Kirby Evangelista MD Pre-visit Planning (SDOH Screening [...] Description 09/04/2024 9:45 AM EDT Office Visit [facility] [address] [place], [place] [id number] Name, MD Kirby [address] [place] [address] Health Maintenance Due Date Last Done Comments [...] nephropathy, with long-term current use of insulin ([facility]) Age-related osteoporosis without current pathological fracture On statin therapy COMPREHENSIVE METABOLIC PANEL Routine 06/24/2024 8:13 AM EDT Controlled type 2 diabetes mellitus with diabetic nephropathy, with long-term current use of insulin ([facility]) Age-related osteoporosis without current pathological fracture [...] 8:13 AM EDT) Triglycerides 73 <150 mg/dL [facility] Comment:Desirable Triglyceri de: less than 150 mg/dLBorderline High Triglyceride 150-199 mg/dLHigh Triglyceride: 200-499 mg/dLVery High Triglyceride: greater than or equal to 5OO mg/dL Cholesterol 122 <200 mg/dL [facility] Comment:Desirable Cholestero l: less than 200 mg/dLBorderline High Cholesterol: 200-239 mg/dLHigh Cholesterol: greater than 239 mg/dL LDL Cholesterol Calculated 59 <100 mg/dL [facility] Comment:Desirable LDL: less than 100 mg/dLNear Optimal/Above Optimal LDL: 110- 129 mg/dLBorderline High LDL: 130-159 mg/dLHigh LDL: 160-189 mg/dLVery High LDL: greater than or equal to 190 mg/dL HDL Cholesterol 49 >40 mg/dL [facility] Comment:Desirable HDL: great er than 40 mg/dL Note: This HDL assay may give artificially low results in patients with liver disease. Blood Venous blood specimen / Unknown 06/24/2024 8:13 AM EDT 06/24/2024 8:13 AM EDT us Kirby Evangelista MD LAB BLOOD ORDERABLES Final Resul t Performing Organization Address City/[facility]/ZIP Co de Phone Number [facility] [address] [place] [address] [phone] * (ABNORMAL) Comprehensive Metabolic Panel (06/24/2024 8:13 AM EDT) Sodium 142 135 - 145 mmol/L [facility] Potassium 4.1 3.3 - 5.1 mmol/L [facility] Chloride 110(H) 96 - 108 mmol/L [facility] Carbon Dioxide 25 22 - 29 mmol/L [facility] Anion Gap 11(L) 12 - 20 [facility] Urea Nitrogen (BUN) 21(H) 9 - 16 mg/dL [facility] Creatinine, Serum 0.74 0.5 - 1.4 mg/dL [facility] Estimated Glomerular Filt Rate >60 [facility] Comment:Chronic Kidney Disea se: Estimated GFR < 60 mL/min/1.98m3Deltju Kidney Disease: Estimated GFR < 15 mL/min/1.73m2 Glucose 128(H) 60 - 115 mg/dL [facility] Calcium 9.1 8.4 - 10.2 mg/dL [facility] Bilirubin, Total 0.3 0.0 - 1.0 mg/dL [facility] Aspartate Amino Transferase 19 5 - 31 U/L [facility] Alanine Aminotransferase 19 0 - 31 U/L [facility] Total Protein 6.7 6.5 - 8.0 g/dL [facility] Albumin Level 4.1 3.5 - 5.0 g/dL [facility] Alkaline Phosphatase 88 39 - 117 U/L [facility] Blood Venous blood specimen / Unknown 06/24/2024 8:13 AM EDT 06/24/2024 8:13 AM EDT us Kirby Evangelista MD LAB BLOOD ORDERABLES Final Resul t Performing Organization Address [facility]/ZIP Co de Phone Number [facility] [address] [place] [address] [phone] * Albumin, Random Urine W/Creatinine (06/24/2024 8:09 AM EDT) Creatinine, Urine 198.00 mg/dL [facility] Microalbumin Urine 11.0 mg/L [facility] Microalbum Creatinine Ratio Ur 5.5 <30 ug/mg cr [facility] Comment:Albumin/Creatinine R atio Reference Ranges: Normal: < 30 ug/mg creatinine Microalbuminuria: 30 - 300 ug/mg creatinineClinical Albuminuria: > 300 ug/mg creatinine 06/24/2024 8:09 AM EDT 06/24/2024 9:03 AM EDT Generic External Data Provider LAB URINE ORDERAB LES Final Result [facility] [address] [place] [phone] * POCT HGB A1C (04/30/2024 10:16 AM EDT) Pathologist [facility] Hemoglobin A1C 5.9 4.0 - 6.0 % QC Media Lot # [id number] Lot# Expiration Date Blood 04/30/2024 10:1 6 AM EDT Kirby Evangelista MD POINT OF CARE TEST ENTER/EDIT OR DERABLES Final Result * POCT Glucose (04/30/2024 10:16 AM EDT) Pathologist [facility] Glucose Blood, POC 199 60 - 200 mg/dL QC Media Lot # [id number] Lot# Expiration Date , Blood Capillary blood specimen / Unknown 04/30/2024 10:16 AM EDT Kirby Evangelista MD POINT OF CARE TEST ENTER/EDIT OR DERABLES Final Result * Hepatitis C Viral RNA, Quantitative, Real-Time PCR (11/14/2023 9:38 AM EDT) Hepatitis C Viral Load <15 NOT DETECTED NOT DETECTED IU/mL [facility] HCV Log PCR <1.18 NOT DETECTED NOT DETECTED Log IU/mL [facility] Comment:For additional infor mira, please refer tohttp://education.XTRM/faq/DCF76o6(This link is being provided for informational/educational purposes only.)THIS TEST WAS PERFORMED AT:[employer] [place] [phone] VINSON MD Blood 11/14/2023 9:38 AM EDT 11/14/2023 9:38 AM EDT Oralia Michelle NUMERICAL CONTROL ROUTER OPERATOR LAB BLOOD ORDERABLES Final Resu lt [facility] [address] [place] [address] [phone] * BI Mammogram Screening Tomosynthesis Bilateral (09/21/2023 8:00 AM EDT) Anatomical Region Laterality Modality Breast Bilateral Mammography 09/21/2023 8:00 AM EDT Narrative 10/16/2023 2:50 AM EDT ? [facility] ? [address] ?[place] [address] ? Mammography Report ? Signed ? Patient: Brenner Vincent,Akua ?MR#: [id number] ?? [id number] ? : 1950 ?Acct:[id number] ? Age/Sex: 72 / F ?ADM Date: 09/20/24 ? Loc: HO.MAMMO ? Attending Dr: Oralia Michelle CHIEF HOSPITAL ADMINISTRATOR ? Ordering Physician: Oralia Michelle CHIEF HOSPITAL ADMINISTRATOR ?Results: 2Benign ?? Findings ? Date of Service: 09/21/23 ?Follow Up: 1 Year From Orig ?? inal Mammogram ? Procedure(s): MM tomosynthesis screening BI ?? Accession Number(s): [id number] ? cc: Oralia Michelle CHIEF HOSPITAL ADMINISTRATOR ? EXAMINATION: ?? MM SCREENING DIGITAL BREAST [...] DD/ 0800 ? TD/TT: 09/21/23 0809 ? Outsole Tacker: ? Procedure Note Donotuseinterpreter, Image - 10/16/2023 [place] [facility] [address] [place], [place] [address] Mammography Report Signed Patient: Akua EasleyMR#: [id number] : 1950cct:[id number] Age/Sex: 72 / FADM Date: 09/21/23 Loc: HO.MAMMO Attending Dr: Oralia Michelle CHIEF HOSPITAL ADMINISTRATOR Ordering Physician: Oralia Michelle NPResults: 2Benign Findings Date of Service: 09/21/23Follow Up: 1 Year From Orig inal Mammogram Procedure(s): MM tomosynthesis screening BI Accession Number(s): [id number] cc: Oralia Michelle CHIEF HOSPITAL ADMINISTRATOR EXAMINATION: MM SCREENING DIGITAL BREAST TOMOSYNTHESIS, BILATERAL [...] MD Signed By: <Electronically signed by Lisa eHrnandez MD in OV> 10/16/23 0247 DD/ 0800 TD/TT: 09/21/23 0809 Outsole Tacker: Oralia Michelle NUMERICAL CONTROL ROUTER OPERATOR IMG BI PROCEDURES Final Result from Last 3 Months or Most Recently Relevant to Health Maintenance Insurance [facility] MEDICARE ADVANTAGE Care Teams Safety Analyst Relationship Specialty Start Date End Date Name, MD Kirby [address] [place] [address] PCP - General Internal Medicine 10/25/23
--- OUTSIDE RECORDS SUMMARY | 2024-07-09 08:00 | XMS_ITS | Clinical Summary ---
Author Organization [facility] Address [address] [place] [address] Phone Care Team Providers Care Repair Mechanic Name Role Phone AlexiaricardoTienOralia Primary Care Provider [phone] Allergies Active Allergy Reactions Criticality Noted Date Comments Lisinopril Angioedema High 04/20/2018 Metformin Unknown 04/29/2015 Medications No known medications Surgical History Surgery Date Site/Laterality Comments HYSTERECTOMY Medical History Medical History Date Comments Hypertension Diabetes mellitus ([facility] V24, [facility] V28) Social History Tobacco Use Types Packs/Day [...] ID:[id number] Group ID:[id number] Type:Not on file Address: [place] [address] [place] [phone] Care Teams Repair Mechanic Relationship Specialty Start Date End Date Oralia Michelle [address] [place] [address] PCP - General Family Medicine 01/24/24
[2024-07-09 08:04] VITALS: BP 92/48; PULSE 80; O2SAT 99; BMI 24.6
[2024-07-09 08:12] LABS: Glucose, Whole Blood 85 mg/dL (60-115)
[2024-07-09 08:41] VITALS: BP 112/78
== END 2024-07-09 08:31 | disposition home or self-care (01) ==
LOC: HO.ENCR 07:58
PROVIDERS: PCP Internal Medicine Geriatric Medicine; Visit Provider Nurse Practitioner Adult Health
DX: E11.65 Type 2 diabetes mellitus with hyperglycemia (principal); Z79.4 Long term (current) use of insulin
CPT/HCPCS: 99214; G2211

== ENCOUNTER → 2024-07-09 07:58 | Outpatient (BNVA) | payer MEDICARE, SELFPAY | PROVIDERS: PCP Internal Medicine Geriatric Medicine; Visit Provider Nurse Practitioner Adult Health | DX: Z46.81 Encounter for fitting and adjustment of insulin pump (principal); E11.65 Type 2 diabetes mellitus with hyperglycemia; Z79.85 Long-term (current) use of injectable non-insulin antidiabetic drugs | CPT/HCPCS: 82947; 83036; 99212 ==

== ENCOUNTER 2024-07-17 08:22 | Outpatient (AMB) | payer MEDICARE, SELFPAY ==
--- OUTSIDE RECORDS SUMMARY | 2024-07-17 08:39 | XMS_ITS | Patient Health Record ---
Author Organization [facility] Address [address] [place] [address] Care Team Providers Care Hand Endband Cutter Name Role Phone Jenifer Xiao Primary Care [...] Problem Status W/U Status Risk Notes Problem [id number] Colon cancer screening (Z12.11) Active confirmed Problem [id number] Gastroesophageal reflux disease without esophagitis (K21.9) Active confirmed Plan Of Treatment Future Test Test Name Order Date COLONOSCOPY 04/29/2015 Insurance Providers Payer Name Payer Address Payer Phone Subscriber Number Group Number Insured Name Patient Relationship to Insured Coverage Start Date Coverage End Date MEDICARE OF [employer] [address] [place] [address] [id number] RIZVIMAJORRENÉ Self - patient is the insured Medical (General) History Medical History History ICD Code colonoscopy 11-12-2008 egd 03-08-2000 reflux colon polyps substernal burning and pain type 2 diabetes mellitus Denies [place],CVA,Lung disease,renal disease Surgical History Surgery Date(Month/Year) hysterectomy kidney stone removal
--- NOTE | 2024-07-17 09:04 | A.OFFVIS_ITS ---
Intake Intake Visit Reasons: 60 min Network Technician Required: No Accompanied by: Self / Same As Patient Allergies metformin Allergy (Unknown, Verified 07/09/24 08:07) GI discomfort HPI Comprehensive Diabetes Asmnt Most Recent Diabetes Results: Microalb/Creat Ratio 5.5 ug/mg cr (<30) 06/24/24 Cholesterol 122 mg/dL (<200) 06/24/24 HDL Cholesterol 49 mg/dL (>40) 06/24/24 Triglycerides 73 mg/dL (<150) 06/24/24 Creatinine 0.74 mg/dL (0.5-1.4) 06/24/24 Blood Urea Nitrogen 21 mg/dL (9-16) H 06/24/24 Sodium 142 mmol/L (135-145) 06/24/24 Potassium 4.1 mmol/L (3.3-5.1) 06/24/24 Chloride 110 mmol/L (96-108) H 06/24/24 Carbon Dioxide 25 mmol/L (22-29) 06/24/24 Calcium 9.1 mg/dL (8.4-10.2) 06/24/24 AST 19 U/L (5-31) 06/24/24 ALT 19 U/L (0-31) 06/24/24 Total Protein 6.7 g/dL (6.5-8.0) 06/24/24 Albumin 4.1 g/dL (3.5-5.0) 06/24/24 [facility] Medical History (Updated 04/01/24 @ 08:53 by Simona Sullivan, [facility]) GERD (gastroesophageal reflux disease) Fibromyalgia Osteoporosis Vitamin D deficiency HLD (hyperlipidemia) HTN (hypertension) T2DM (type 2 diabetes mellitus) Type 2 diabetes mellitus with hyperglycemia Surgical History History of colonoscopy History of kidney stones Hx of hysterectomy Family History Father COPD (chronic obstructive pulmonary disease) Mother Osteoporosis Type 2 diabetes mellitus Social History Household Members: Spouse and Children Household Members Other:: , and adopted son Alcohol intake: former Patient Tobacco Use Status: Never used Tobacco Assessment & Plan Assessment & Plan (1) Type 2 diabetes mellitus with hyperglycemia: Code(s): E11.65 - Type 2 diabetes mellitus with hyperglycemia Plan: Patient presents for pump training for Omnipod 5 with Dexcom G7 The following topics were reviewed today: -Connecting G7 to Omnipod advertising sales executive Omnipod user name: [email or web address] Password:[email or web address] Screen lock:[id number] Patient brought Omnipod advertising sales executive to today's visit. Entered serial number and sensor number into Omnipod advertising sales executive instructed patient to change pod when she gets home this will complete integration between Dexcom G7 and Omnipod 5 advertising sales executive. Patient instructed to contact perinatal educator if she has questions or concerns Coding Level of Care Code Est Pt Level 1 (01271) Diagnoses Type 2 diabetes mellitus with hyperglycemia E11.65
== END 2024-07-17 09:05 | disposition home or self-care (01) ==
LOC: HO.ENCR 08:23
PROVIDERS: Visit Provider Registered Nurse Diabetes Educator
DX: E11.65 Type 2 diabetes mellitus with hyperglycemia (principal)

== ENCOUNTER → 2024-07-17 08:22 | Outpatient (BNVA) | payer MEDICARE, SELFPAY | PROVIDERS: Visit Provider Registered Nurse Diabetes Educator | DX: E11.65 Type 2 diabetes mellitus with hyperglycemia (principal) | CPT/HCPCS: 99211 ==

== ENCOUNTER 2024-09-26 08:20 | Outpatient (REF) | payer MEDICARE, SELFPAY ==
--- OUTSIDE RECORDS SUMMARY | 2024-09-26 08:25 | XMS_ITS | Clinical Summary ---
Author Organization [facility] Address [address] [address] Phone Care Team Providers Care Wireless Operator Name Role Phone Pcp, Unknown Primary Care Provider Unavailabl e Allergies Active Allergy Reactions Criticality Noted Date Comments Lisinopril 01/26/2024 Metformin 01/26/2024 Medications atorvastatin (LIPITOR) 80 MG tablet Take 80 mg by mouth daily. Active losartan (COZAAR) 25 MG tablet Take 25 mg by mouth daily. Active omeprazole (PRILOSEC) 40 MG capsule Take 40 mg by mouth daily. Active aspirin 81 MG EC tablet Take 81 mg by mouth daily. Active Social History Tobacco Use Types Packs/Day Years Used Date Smoking Tobacco: Never Assessed Education Answer Date Recorded Are you interested in more education? Not on whitney e 01/26/2024 Are you concerned about learning? Not on file 01/26/2024 No 01/26/2024 No 01/26/2024 Digital Access Answer Date Recorded No 01/26/2024 No 01/26/2024 Reliable internet access at home? Not on file 01/26/2024 Device with a working camera? Not on file Intimate Partner Violence Answer Date R ecorded Are you denied basic needs s uch as food, clothing, or medical care? No 01/26/2024 In the past 12 months have y ou been in a relationship with a person who hurts, threatens, or tries to control you? No 01/26/2024 Are you denied basic needs s uch as food, clothing, or medical care? No 01/26/2024 In the past 12 months have y ou been in a relationship with a person who hurts, threatens, or tries to control you? No 01/26/2024 Comments Unknown Sex and Gender Information Value Date Recorded Sex Assigned at Female 01/26/2024 1:19 AM EST Legal Sex Female 12:00 AM EST Gender Identity Female 01/26/2024 1:19 AM EST Sexual Orientation Straight 01/26/2024 1: 19 AM EST Last Filed Vital Signs Vital Sign Reading Time Taken Comments Blood Pressure 129/81 01/26/2024 2:49 AM EST Pulse 88 01/26/2024 2:49 AM EST Temperature 36.4 C (97.5 F) 01/26/2024 2:49 AM EST Respiratory Rate 18 01/26/2024 2:49 AM EST Oxygen Saturation 97% 01/26/2024 2:49 AM EST Inhaled Oxygen Concentration - - Weight - - Height - - Body Mass Index - - Plan of Treatment Health Maintenance Due Date Last Done Comments CREATININE LEVEL 1950 POTASSIUM LEVEL 1950 DEPRESSION SCREENING 1964 SMOKING Hx and SMOKELESS TOBACCO SCREENING 1965 HEPATITIS C SCREENING 1970 COLOGUARD 1997 COLONOSCOPY 1997 COLORECTAL CANCER SCREENING 1997 FIT TEST 1997 FOBT 1997 SIGMOIDOSCOPY 1997 VIRTUAL COLONOSCOPY 1997 ZOSTER VACCINES (1 of 2) 2002 PNEUMOCOCCAL VACCINES (50+ years) (2 of 2 - PCV) 09/21/2021 09/21/2020 COVID-19 VACCINE (1 - 2023-2 5 season) 2023 MAMMOGRAM 09/20/2025 09/21/2023, 10/31/2019, 03/20/2018 RSV VACCINE (1 - 1-dose 75+ series) 12/18/2027 LIPID PANEL 02/10/2028 02/09/2023 Adult Td,Tdap Booster 09/21/2030 09/21/2020 OSTEOPOROSIS SCREENING INITI AL (ONE-TIME) Completed 09/21/2023 HEPATITIS A VACCINES Aged Out No long er eligible based on patient's age to complete this topic HIB VACCINES Aged Out No longer eligi ble based on patient's age to complete this topic MENINGOCOCCAL VACCINES (ACWY) Aged Out No longer eligible based on patient's age to complete this topic MENINGOCOCCAL VACCINES (B) Aged Out N o longer eligible based on patient's age to complete this topic Medical Devices Not on file Insurance [facility] MEDICARE REPLACEMENT [place] [id number] [facility] MEDICARE REPLACEMENT [facility] MEDICARE REPLACEMENT MEDICARE REPLACEMENT MEDICARE REPLACEMENT MEDICARE REPLACEMENT Care Teams Wireless Operator Relationship Specialty Start Date End Date Pcp, Unknown PCP - General 01/26/24 Additional Source Comments The information contained in this document represents components of the legal health record. It is not the complete legal health record.[facility]
--- OUTSIDE RECORDS SUMMARY | 2024-09-26 08:25 | XMS_ITS | Clinical Summary ---
Author Organization [employer] Address [address] [place] [address] [address] [place] [address] Care Team Providers Care Early Years Teacher Name Role Phone Name, Kirby MOSLEY Primary Care Provider [phone] Allergies Active Allergy Reactions Criticality Noted Date [...] 5.3 g 1 01/22/20 24 025 Active Continuous Glucose Sensor (Dexcom G7 Sensor) [...] 25 Active Insulin Disposable Pump (Omnipod 5 OmvG5E4 Pods Gen 5) misc as directed 03/01/19 25 Active omeprazole (PriLOSEC) [address] capsule TAKE 1 CAPSULE BY MOUTH ONCE A DAY BEFORE A MEAL 90 capsule 1 07/31/19 25 Active Active Problems Problem Noted Date [...] Encounters Date Type Department Care Team Description 09/02/2024 Telephone [facility] [address] [place] [address] Jody Marcum MA CHARTPREP 08/28/2024 Travel 07/29/2024 Refill [facility] [address] [place] [address] Name, MD Kirby from Last 3 Months Immunizations Immunization Administration [...] 82 04/30/2024 10:15 AM EDT Temperature 36 C (96.8 F) 04/30/2024 10:15 AM EDT Respiratory Rate 16 [...] Care Team (Late st Contact Info) Description 10/29/2024 4:00 PM EDT Office Visit [facility] [address] [place] [address] Name, MD Kirby [address] [place] [address] Health Maintenance Due Date Last Done Comments [...] exists Depression Screening 09/17/2024 09/18/2023, 09/18/19 24 Influenza Vaccine (#1) 2024 , 12/15/2022, 11/24/2020, Additional history exists Diabetes: Hemoglobin A1C 10/31/2024 025, 08/10/2022, 12/07/2020, Additional history exists SDOH Screening 04/19/2025 04/19/2024 Tobacco Screening 04/19/2025 04/19/2024 Lipid Panel 06/24/2025 06/24/2024, 1202/2022, 12/07/2020 Mammogram 09/20/2025 09/21/2023, 06/20, 10/31/2019, Additional history exists DTaP/Tdap/Td Vaccines (2 - Td or Tdap) 09/21/2030 09/21/2020 Pneumococcal Vaccine: 50+ Years Completed 09/21/2020, 04/20/2018 Hepatitis B Vaccines Completed 01/19/2021, 11/24/2020, 09/21/2020 Hepatitis C Screening Completed 11/14/2023 HIB Vaccines [...] Associated Diagnosis Comments GLUCOSE, WHOLE BLOOD Routine 07/09/2024 8:09 AM EDT LIPID PANEL, STANDARD Routine 06/24/2024 8:13 AM EDT Controlled type 2 diabetes mellitus with diabetic nephropathy, with long-term current use of insulin (CMS/[facility]) Age-related osteoporosis without current pathological fracture On statin therapy POCT GLYCATED HEMOGLOBIN, TOTAL Routine 04/30/2024 10:16 [...] Recently Relevant to Health Maintenance Results * Glucose, Whole Blood (07/09/2024 8:09 AM EDT) Glucose, Whole Blood 85 60 - 115 mg/dL [facility] Comment:METER #: [id number] Testing performed in the Endocrinology Department [address] , [address], [facility]. 07/09/2024 8:09 AM EDT 07/09/2024 8:12 AM EDT us Generic External Data Provider LAB BLOOD ORDERAB LES Final Result Performing Organization Address City/[facility]/ZIP Co de Phone Number [facility] [address] [place] [phone] * Lipid Panel, Standard (06/24/2024 8:13 AM EDT) Triglycerides 73 <150 mg/dL [facility] Comment:Desirable Triglyceri de: less than 150 mg/dLBorderline High Triglyceride 150-199 mg/dLHigh Triglyceride: 200-499 mg/dLVery High Triglyceride: greater than or equal to 5OO mg/dL Cholesterol 122 <200 mg/dL [facility] Comment:Desirable Cholestero l: less than 200 mg/dLBorderline High Cholesterol: 200-239 mg/dLHigh Cholesterol: greater than 239 mg/dL LDL Cholesterol Calculated 59 <100 mg/dL [facility] Comment:Desirable LDL: less than 100 mg/dLNear Optimal/Above Optimal LDL: 110- 129 mg/dLBorderline High LDL: 130-159 mg/dLHigh LDL: 160-189 mg/dLVery High LDL: greater than or equal to 190 mg/dL HDL Cholesterol 49 >40 mg/dL [facility] Comment:Desirable HDL: great er than 40 mg/dL Note: This HDL assay may give artificially low results in patients with liver disease. Blood Venous blood specimen / Unknown 06/24/2024 8:13 AM EDT 06/24/2024 8:13 AM EDT us Kirby Evangelista MD LAB BLOOD ORDERABLES Final Resul t Performing Organization Address City/[facility]/ZIP Co de Phone Number [facility] [address] [place] [phone] [phone] * POCT HGB A1C (04/30/2024 10:16 AM EDT) Pathologist [facility] Hemoglobin A1C 5.9 4.0 - 6.0 % QC Media Lot # [id number] Lot# Expiration Date Blood 04/30/2024 10:1 6 AM EDT Kirby Evangelista MD POINT OF CARE TEST ENTER/EDIT OR DERABLES Final Result * Hepatitis C Viral RNA, Quantitative, Real-Time PCR (11/14/2023 9:38 AM EDT) Pathologist [facility] Hepatitis C Viral Load <15 NOT DETECTED NOT DETECTED IU/mL [facility] HCV Log PCR <1.18 NOT DETECTED NOT DETECTED Log IU/mL [facility] Comment:For additional infor mation, please refer [email or web address].[email or web address]/[email or web address](This link is being provided for informational/educational purposes only.)THIS TEST WAS PERFORMED AT:[facility] [place] [phone] VINSON MD Blood 11/14/2023 9:38 AM EDT 11/14/2023 9:38 AM EDT Oralia Michelle PATIENT DAY COORDINATOR LAB BLOOD ORDERABLES Final Resu lt [facility] [address] [place] [phone] * BI Mammogram Screening Tomosynthesis Bilateral (09/21/2023 8:00 AM EDT) Anatomical Region Laterality Modality Breast Bilateral Mammography 09/21/2023 8:00 AM EDT Narrative 10/16/2023 2:50 AM EDT [facility] [address] [place] [address] Mammography Report Signed Patient: Akua Easley MR#: [id number] : 1950 Acct:[id number] Age/Sex: 72 / F ADM Date: 09/21/23 Loc: [facility] Attending Dr: Oralia Michelle NP Ordering Physician: Oralia Michelle NP Results: 2Benign Findings Date of Service: 09/21/23 Follow Up: 1 Year From Orig ina Mammogram Procedure(s): MM tomosynthesis screening BI Accession Number(s): [id number] cc: Oralia Michelle NP EXAMINATION: MM SCREENING DIGITAL BREAST TOMOSYNTHESIS, BILATERAL [...] 10/16/23 0247 DD/ 0800 TD/TT: 09/21/23 0809 Manager Of Internal Audit: Procedure Note Donotuseinterpreter, Image - 10/16/2023 [facility] [address] [place] [address] Mammography Report Signed Patient: Akua EasleyMR#: [id number] : 1950cct:[id number] Age/Sex: 72 / FADM Date: 09/21/23 Loc: HO.MAMMO Attending Dr: Oralia Michelle GROCERY STORE CLERK Ordering Physician: Oralia Michelle NPResults: 2Benign Findings Date of Service: 09/21/23Follow Up: 1 Year From Orig ina Mammogram Procedure(s): MM tomosynthesis screening BI Accession Number(s): [id number] cc: Oralia Michelle NP EXAMINATION: MM SCREENING DIGITAL BREAST TOMOSYNTHESIS, BILATERAL [...] 10/16/23 0247 DD/ 0800 TD/TT: 09/21/23 0809 Manager Of Internal Audit: Oralia Michelle PATIENT DAY COORDINATOR IMG BI PROCEDURES Final Result from Last 3 Months or Most Recently Relevant to Health Maintenance Insurance [facility] [place] [address] Care Teams Early Years Teacher Relationship Specialty Start Date End Date Name, MD Kirby [address] [place] [address] PCP - General Internal Medicine 10/25/23
--- OUTSIDE RECORDS SUMMARY | 2024-09-26 08:25 | XMS_ITS | Patient Health Record ---
Author Organization [facility] Address [address] [place] [address] Care Team Providers Care Book Canvasser Name Role Phone Jenifer Xiao Primary Care Provider Goyo Alfonso Jr Unavailable [phone] Allergies Allergen (clinical drug ingredient) Drug/Non Drug [...] Problem Status W/U Status Risk Notes Problem 049732991 Colon cancer screening (Z12.11) Active confirmed Problem [id number] Gastroesophageal reflux disease without esophagitis (K21.9) Active confirmed Plan Of Treatment Future Test Test Name Order Date COLONOSCOPY 04/29/2015 Insurance Providers Payer Name Payer Address Payer Phone Subscriber Number Group Number Insured Name Patient Relationship to Insured Coverage Start Date Coverage End Date MEDICARE OF [employer] [address] [place] [address] [id number] RIZVI, RENÉ Self - patient is the insured Medical (General) History Medical History History ICD Code colonoscopy 11-12-2008 egd 03-08-2000 reflux colon polyps substernal burning and pain type 2 diabetes mellitus Denies [place],CVA,Lung disease,renal disease Surgical History Surgery Date(Month/Year) hysterectomy kidney stone removal
--- OUTSIDE RECORDS SUMMARY | 2024-09-26 08:26 | XMS_ITS | Clinical Summary ---
Author Organization [facility] Address [address] [place] [address] Phone Care Team Providers Care Beaver Trapper Name Role Phone Alexiaricardo Oralia Primary Care Provider [phone] Allergies Active Allergy Reactions Criticality Noted Date Comments Lisinopril Angioedema High 04/20/2018 Metformin Unknown 04/29/2015 Medications No known medications Surgical History Surgery Date Site/Laterality Comments HYSTERECTOMY Medical History Medical History Date Comments Hypertension Diabetes mellitus ([facility] V24, [facility] V28) Social History Tobacco Use Types Packs/Day [...] 86 01/24/2024 5:40 PM EST Temperature 37 C (98.6 F) 01/24/2024 5:40 PM EST Respiratory Rate 18 [...] Influencers of Health Screening 01/24/2024 Depression Screening 02/21/2024 COVID-19 Vaccine ( season) 2024 10/20/2023, 12/15/2022, 10/13/2021, Additional history exists Influenza Vaccine (#1) 2024 , 12/15/2022, 11/24/2020, Additional history exists RSV Immunization Adult Patients (1 - 1-dose 75+ series) 12/18/2027 Cholesterol Screening (Lipid Panel) 02/10/2028 02/09/2023 DTaP,Tdap,and Td Vaccines (2 - Td or Tdap) 09/21/2030 09/21/2020 Pneumococcal Vaccine: 50+ Years Completed 09/21/2020, 04/20/2018 Hepatitis B Vaccines Completed 01/19/2021, 11/24/2020, 09/21/2020 HIB Vaccines Aged Out No longer eligi [...] ID:[id number] Group ID:[id number] Type:Not on file Address: [facility] [place] [phone] Care Teams Beaver Trapper Relationship Specialty Start Date End Date Oralia Michelle [address] [place] [address] PCP - General Family Medicine 01/24/24
== END 2024-09-26 08:21 | disposition home or self-care (01) ==
LOC: HO.MAMMO 08:20
PROVIDERS: PCP Internal Medicine Geriatric Medicine; Visit Provider Nurse Practitioner Family
DX: Z12.31 Encounter for screening mammogram for malignant neoplasm of breast (principal)
CPT/HCPCS: 77063; 77067

== ENCOUNTER → 2024-09-26 08:30 | Outpatient (BNV) | payer MEDICARE, SELFPAY | PROVIDERS: PCP Internal Medicine Geriatric Medicine; Visit Provider Radiology Body Imaging | DX: Z12.31 Encounter for screening mammogram for malignant neoplasm of breast (principal) | CPT/HCPCS: 77063; 77067 ==

== ENCOUNTER 2024-10-09 11:20 | Outpatient (AMB) | payer MEDICARE, SELFPAY ==
--- NOTE | 2024-10-09 11:22 | A.OFFVIS_ITS ---
Vital Signs 10/09/24 11:23 Height 5 ft 2 in Weight 134 lb 7.712 oz BMI 24.6 BP 116/62 Blood Pressure Location Rt brachial Position Sitting Pulse 79 Pulse Source Pulse Oximeter Pulse Oximetry (%) 98 Oxygen Delivery Method Room Air Intake Visit Reasons: T2DM Intake Note: Patient present today to follow up on Type 2 Diabetes Mellitus. Last seen Margo Nowak on 07/09/24. Patient receives DME supplies through: [facility] Last Diabetic Eye exam: DUE, Patient needs to make an appt Last Podiatry Visit: Does not see a [employer] Crm Developer Random Glucose: 159 mg/dL HgA1C: 5.3%, 10/09/2024 Hosiery Knitter Required: No Accompanied by: Self / Same As Patient Allergies metformin Allergy (Unknown, Verified 10/09/24 11:30) GI discomfort Medication List - Last Reconciled 10/09/24 by Ifeanyi Hoskins MD acetone (urine) test (Ketone Urine Test strips) As directed aspirin 81 mg PO DAILY atorvastatin 80 mg PO DAILY bisacodyl (Dulcolax (bisacodyl)) 20 mg (4 x 5 mg) PO ONCE 1 day blood-glucose meter As directed 3x/day blood-glucose meter (OneTouch Verio Flex Meter) As directed test 4 times a day blood-glucose meter (Accu-Chek Guide Glucose Meter) 1 ea miscellaneous .checks 3 X/day blood-glucose sensor (Dexcom G7 Sensor device) continous every 10 days calcium carbonate 600 mg PO BID cholecalciferol (vitamin D3) 50 mcg PO DAILY dulaglutide (Trulicity) 1.5 mg (0.5 mL) subcut QWEEK insulin glargine (Lantus Solostar U-100 Insulin) 16 units subcut QPM PRN insulin lispro 70 units daily via pump subcutaneously use as directed; 30 days MDD 70 units NS insulin pump cart,auto,BT,G6/7 (Omnipod 5 G6-G7 Pods (Gen 5) subcutaneous cartridge) As directed insulin pump cart,auto,BT-cntr (Omnipod 5 G6 Intro Kit (Gen 5) subcutaneous cartridge with controller) As directed insulin pump cart,automated,BT (Omnipod 5 G6 Pods (Gen 5) subcutaneous cartridge) DIRECTED insulin syringe-needle U-100 (BD Insulin Syringe Ultra-Fine) qid prn pump failure lancets ([place] DistillersTouch Delica Plus Lancet) USE TO TEST 4 TIMES A DAY losartan 25 mg PO DAILY 90 days omeprazole 40 mg PO DAILY pen needle, diabetic (BD Sheree 2nd Gen Pen Needle) USE DIRECTED FOUR TIMES A DAY polyethylene glycol 3350 (Miralax) 238 grams PO ONCE HPI Comments Details: 73 YO F with PMHx T2DM, HLD, Osteoporosis who is seen in F/U today for her diabetes. She is now on a OMNIPOD insulin pump. She was last seen 07/09/24 for diabetes by Margo Gallo NP . 03/01/2024 6.5% A1C 11/30/23: 6.5%. She has well-controlled diabetes. Had prior reaction to Ozempic: coughing, metformin: diarrhea She currently takes Trulicity 1.5mg weekly Rare Hypoglycemia No Nephropathy: microalbumin 06/24/24 eGFR>60 microalbumin 11.0 No Retinopathy: ophthalmology Had appt 11/2 yrs ago she is planning to call to schedule No neuropathy: denies numbness, tingling or cramping in lower extremity ldl 59 06/24/24 On statin Backup insulin plan Lantus 16 units plus 3 units with meals of NovoLog Basal rate(s) (units/hour) : 12 AM to 7 AM? 1.5 units / hr 7am to 12 noon 1.6 new 12 noon to 12 am 1.5 new Dexcom average glucose: 160 14 day continuous glucose monitor report reviewed Days with CGM data TIme in ranges: 1o % very high (above 250) 13 % high ?(181-250) 84 % in range ?(70-180] 2 % low (69-55) 1 % ?very low (below 54) Interpretation [ well-controlled with bump after breakfast postprandial Total daily dose of insulin 18 units 64% basal 36 units 28% bolus 5.1 units 68% over ride Number boluses per day 0.9] Bolus setting Insulin Carbohydrate Ratio (s) 12 AM to 12 AM? 1:8 Correction Factor / Sensitivity Factor 12 AM to 12 AM? 1:20 Active Insulin Time:? 4 hours Target(s): 12 AM to 12 AM? 130 mg/dL Target threshold: 12 AM to 12 AM? 130 mg/dL PFSH Medical History GERD (gastroesophageal reflux disease) Fibromyalgia Osteoporosis Vitamin D deficiency HLD (hyperlipidemia) HTN (hypertension) T2DM (type 2 diabetes mellitus) Type 2 diabetes mellitus with hyperglycemia Surgical History History of colonoscopy History of kidney stones Hx of hysterectomy Family History Father COPD (chronic obstructive pulmonary disease) Mother Osteoporosis Type 2 diabetes mellitus Social History Household Members: Spouse and Children Household Members Other:: , and adopted son Alcohol intake: former Patient Tobacco Use Status: Never used Tobacco Physical Exam Vital Signs: Last Vital Signs Pulse 79 10/09/24 11:23 BP 116/62 10/09/24 11:23 Pulse Ox 98 10/09/24 11:23 Oxygen Delivery Method Room Air 10/09/24 11:23 BMI result Body Mass Index 24.6 Absence of Cushingoid features. Absence of acromegalic features. Neck exam reveals nl size thyroid about 15 gms. No thyroid nodules palpable. No carotid bruits present. Lungs CTA. Heart S1 S2, Reg R/R. No M/R/ G. Skin exam reveals absence of vitiligo or acanthosis nigricans. Abdominal exam reveals Soft NT/ND with NA BS. No organomegaly present. Neck Other: . Extrem Other: Visual exam of foot performed. No ulcerations or open lesions. No onchomycosis, no callouses.Pulses 2 + distally Sensation intact to monofilament exam. Vibratory sensation sensed is intact with 128 Hz tuning fork Results AMB Hemoglobin A1c AMB Hemoglobin A1c 5.3 % Last Edit by SOUMYA Saini on 10/09/24 11:39 Results Reviewed Results Reviewed: Laboratory Last Values Glucose (Clinic) 159 mg/dL (60-115) H 10/09/24 11:29 Assessment & Plan Assessment & Plan (1) Type 2 diabetes mellitus with hyperglycemia: Code(s): E11.65 - Type 2 diabetes mellitus with hyperglycemia Category: Medical Plan: This is a 72 -year-old female with a history of type 2 diabetes being treated with basal- bolus insulin and Trulicity with excellent glycemic control and no known microvascular or macrovascular complications. Plan is to have the patient continue the current regimen. (2) Osteoporosis: Code(s): M81.0 - Age-related osteoporosis without current pathological fracture Category: Medical Qualifiers: Osteoporosis type: unspecified Presence of current pathological fracture: unspecified Qualified Code(s): M81.0 - Age-related osteoporosis without current pathological fracture Plan: Not addressed this visit Orders: Orders AMB Hemoglobin A1c Today E11.65 - Type 2 diabetes mellitus with hyperglycemia, Z79.4 - termite exterminator helper (current) use of insulin Coding Level of Care Code Est Pt Level 4 (74669) Diagnoses Type 2 diabetes mellitus with hyperglycemia E11.65 Osteoporosis, unspecified osteoporosis type, unspecified pathological fracture presence M81.0 Osteoporosis type: unspecified Presence of current pathological fracture: unspecified
[2024-10-09 11:23] VITALS: BP 116/62; PULSE 79; O2SAT 98; BMI 24.6
[2024-10-09 11:33] LABS: Glucose, Whole Blood 159 mg/dL (60-115)
--- OUTSIDE RECORDS SUMMARY | 2024-10-09 12:42 | XMS_ITS | Clinical Summary ---
Author Organization [employer] Address [address] [place] [address] [address] [place] [address] Care Team Providers Care Carrier Operator Name Role Phone Name, Kirby MOSLEY Primary Care Provider [phone] Allergies Active Allergy Reactions Criticality Noted Date [...] 25 Active Insulin Disposable Pump (Omnipod 5 QptE2W4 Pods Gen 5) misc as directed 03/01/19 [...] Encounters Date Type Department Care Team Description 10/09/2024 Orders Only GENERIC EXTERNAL DATA DEPARTMENT Provider, Generic External Data 09/26/2024 Orders Only [facility] [address] [place] [address] Oralia Michelle FNP 09/02/2024 Telephone [facility] [address] [place] [address] Jody Marcum [place] CHARTPREP 08/28/2024 Travel 07/29/2024 Refill [facility] [address] [place] [address] Name, MD Kirby from Last 3 Months [...] Description 10/29/2024 4:00 PM EDT Office Visit [facility] [address] [place] [address] Name, MD Kirby [address] [place] [address] Health Maintenance Due Date Last Done Comments [...] Panel 06/24/2025 06/24/2024, 12/2 02/2022, 12/07/2020 Mammogram 09/26/2026 09/26/2024, 08/0 02/2023, 06/29/2021, Additional history exists DTaP/Tdap/Td Vaccines (2 - [...] Associated Diagnosis Comments GLUCOSE, WHOLE BLOOD Routine 10/09/2024 11:29 AM EDT BI MAMMOGRAM SCREENING TOMOSYNTHESIS BILATERAL Routine 09/26/2024 8:26 AM EDT GLUCOSE, WHOLE BLOOD Routine 07/09/2024 8:09 AM EDT LIPID PANEL, STANDARD Routine 06/24/2024 8:13 AM EDT Controlled type 2 diabetes mellitus with diabetic nephropathy, with long-term current use of insulin ([facility]/HCC) Age-related osteoporosis without current pathological fracture On statin therapy POCT GLYCATED HEMOGLOBIN, TOTAL Routine 04/30/2024 10:16 AM EDT Controlled type 2 diabetes mellitus with diabetic nephropathy, with long-term current use of insulin (CMS/HCC) HEPATITIS C VIRAL RNA, QUANTITATIVE, REAL-TIME PCR Routine 11/14/2023 9:38 AM EDT Routine health maintenance from Last 3 Months or Most Recently Relevant to Health Maintenance Results * (ABNORMAL) Glucose, Whole Blood (10/09/2024 11:29 AM EDT) Only the most recent of2 resultswithin the time period is included. Glucose, Whole Blood 159(H) 60 - 115 mg/dL [facility] Comment:METER #: [id number] Testing performed in the Endocrinology Department [address] , [address], [place]. 10/09/2024 11:2 9 AM EDT 10/09/2024 11:33 AM EDT us Generic External Data Provider LAB BLOOD ORDERAB LES Final Result [facility] [address] [place] [address] [phone] * BI Mammogram Screening Tomosynthesis Bilateral (09/26/2024 8:26 AM EDT) Anatomical Region Laterality Modality Breast Bilateral Mammography 09/26/2024 8:26 AM EDT Narrative 10/05/2024 9:28 PM EDT [address] [place] [address] Mammography Report Signed Patient: Akua Easley MR#: [id number] : 1950 Acct:[id number] Age/Sex: 73 / F ADM Date: 09/26/24 Loc: HO.MAMMO Attending Dr: Oralia Michelle NP Ordering Physician: Oralia Michelle NP Results: 1Negativ e Date of Service: 09/26/24 Follow Up: 1 Year From Orig inal Mammogram Procedure(s): MM tomosynthesis screening BI Accession Number(s): [id number] cc: Oralia Michelle NP; Name,Kirby MOSLEY EXAMINATION: MM SCREENING DIGITAL BREAST TOMOSYNTHESIS, BILATERAL CLINICAL INFORMATION: Screening. Asymptomatic. COMPARISON: Comparison made to multiple prior, most recent September 21, 2023, and most remote March 06, 2018. TECHNIQUE: Digital breast tomosynthesis is performed in both the craniocaudal and mediolateral oblique views along with computer-aided detection (CAD). FINDINGS: BREAST COMPOSITION: The breasts are heterogeneously dense, which may obscure small masses (ACR BI-RADS breast composition Category c). BILATERAL BREASTS: No significant masses, suspicious calcifications or other abnormalities are seen in either breast. MM/MM tomosynthesis screening BI IMPRESSION: BILATERAL BREASTS: Negative, no mammographic evidence of malignancy. Normal interval follow-up is recommended in 12 months. ASSESSMENT: BI-RADS 1 - Negative RECOMMENDATION: Routine annual mammography screening. FOLLOW-UP: 1 year F/U This examination should not preclude the clinical evaluation of a suspicious palpable abnormality. This patient's information was entered into a reminder system with a target due date for their next mammogram. Electronically signed by: Hunter Frias MD 10/05/2024 09:25 PM EDT RP Dictated By: Hunter Frias MD Signed By: <Electronically signed by Hunter Frias MD in OV> 10/05/242124 DD/ 0826 TD/TT: 09/26/24 0846 Pulp Beater: Procedure Note Donotuseinterpreter, Image - 10/05/2024 [facility] [address] [place], [place] [address] Mammography Report Signed Patient: Akua EasleyMR#: [id number] : 1950cct:[id number] Age/Sex: 73 / FADM Date: 09/26/24 Loc: HO.MAMMO Attending Dr: Oralia Michelle NP Ordering Physician: Oralia Michelle NPResults: 1Negativ e Date of Service: 09/26/24Follow Up: 1 Year From Orig inal Mammogram Procedure(s): MM tomosynthesis screening BI Accession Number(s): [id number] cc: Oralia Michelle SUPPLIER MANAGER; Name,Kirby MOSLEY EXAMINATION: MM SCREENING DIGITAL BREAST TOMOSYNTHESIS, BILATERAL CLINICAL INFORMATION: Screening. Asymptomatic. COMPARISON: Comparison made to multiple prior, most recent September 21, 2023, and most remote March 06, 2018. TECHNIQUE: Digital breast tomosynthesis is performed in both the craniocaudal and mediolateral oblique views along with computer-aided detection (CAD). FINDINGS: BREAST COMPOSITION: The breasts are heterogeneously dense, which may obscure small masses (ACR BI-RADS breast composition Category c). BILATERAL BREASTS: No significant masses, suspicious calcifications or other abnormalities are seen in either breast. MM/MM tomosynthesis screening BI IMPRESSION: BILATERAL BREASTS: Negative, no mammographic evidence of malignancy. Normal interval follow-up is recommended in 12 months. ASSESSMENT: BI-RADS 1 - Negative RECOMMENDATION: Routine annual mammography screening. FOLLOW-UP: 1 year F/U This examination should not preclude the clinical evaluation of a suspicious palpable abnormality. This patient's information was entered into a reminder system with a target due date for their next mammogram. Electronically signed by: Hunter Frias MD 10/05/2024 09:25 PM EDT Dictated By: Hunter Frias MD Signed By: <Electronically signed by Hunter Frias MD in OV> 10/05/242124 DD/ 5 TD/TT: 09/26/24 0846 Pulp Beater: Oralia Michelle [employer] MAKER IMG BI PROCEDURES Final Result * Lipid Panel, Standard (06/24/2024 8:13 AM EDT) Triglycerides 73 <150 mg/dL [facility] Comment:Desirable Triglyceri de: less than 150 mg/dLBorderline High Triglyceride 150-199 mg/dLHigh Triglyceride: 200-499 mg/dLVery High Triglyceride: greater than or equal to 5OO mg/dL Cholesterol 122 <200 mg/dL [facility] Comment:Desirable Cholestero l: less than 200 mg/dLBorderline High Cholesterol: 200-239 mg/dLHigh Cholesterol: greater than 239 mg/dL LDL Cholesterol Calculated 59 <100 mg/dL [facility] Comment:Desirable LDL: less than 100 mg/dLNear Optimal/Above Optimal LDL: 110- 129 mg/dLBorderline High LDL: 130-159 mg/dLHigh LDL: 160-189 mg/dLVery High LDL: greater than or equal to 190 mg/dL HDL Cholesterol 49 >40 mg/dL [facility] Comment:Desirable HDL: great er than 40 mg/dL Note: This HDL assay may give artificially low results in patients with liver disease. Blood Venous blood specimen / Unknown 06/24/2024 8:13 AM EDT 06/24/2024 8:13 AM EDT us Kirby Evangelista MD LAB BLOOD ORDERABLES Final Resul t [facility] [address] [place] [phone] * POCT HGB A1C (04/30/2024 10:16 [...] Load <15 NOT DETECTED NOT DETECTED IU/mL [facility] HCV Log PCR <1.18 NOT DETECTED NOT DETECTED Log IU/mL [facility] Comment:For additional infor mation, please refer [email or web address]/faq/DJB74n0(This link is being provided for informational/educational purposes only.)THIS TEST WAS PERFORMED AT:[facility] [place] [phone] VINSON MD Blood 11/14/2023 9:38 AM EDT 11/14/2023 9:38 AM EDT us Oralia Michelle [employer] LAB BLOOD ORDERABLES Final Resu lt [facility] [address] [place] [address] [phone] from Last 3 Months or Most Recently Relevant to Health Maintenance Insurance [facility] MEDICARE ADVANTAGE Care Teams Carrier Operator Relationship Specialty Start Date End Date Name, MD Kirby [address] [place] [address] PCP - General Internal Medicine 10/25/23
--- OUTSIDE RECORDS SUMMARY | 2024-10-09 12:42 | XMS_ITS | Clinical Summary ---
Author Organization [facility] Address [address] [address] Phone Care Team Providers Care Private Wealth Advisor Name Role Phone Pcp, Unknown Primary Care [...] topic Medical Devices Not on file Insurance [facility] MEDICARE REPLACEMENT [place] [id number] [facility] MEDICARE REPLACEMENT [facility] MEDICARE REPLACEMENT MEDICARE REPLACEMENT MEDICARE REPLACEMENT MEDICARE REPLACEMENT Care Teams Private Wealth Advisor Relationship Specialty Start Date End Date Pcp, Unknown PCP - General 01/26/24 Additional Source Comments The information contained in this document represents components of the legal health record. It is not the complete legal health record.[facility]
--- OUTSIDE RECORDS SUMMARY | 2024-10-09 12:42 | XMS_ITS | Patient Health Record ---
Author Organization [facility] Address [address] [place] [address] Care Team Providers Care Outreach Director Name Role Phone Jenifer Xiao Primary Care [...] Problem Status W/U Status Risk Notes Problem [id number] Colon cancer screening (Z12.11) Active confirmed Problem [id number] Gastroesophageal reflux disease without esophagitis (K21.9) Active confirmed Plan Of Treatment Future Test Test Name Order Date COLONOSCOPY 04/29/2015 Insurance Providers Payer Name Payer Address Payer Phone Subscriber Number Group Number Insured Name Patient Relationship to Insured Coverage Start Date Coverage End Date MEDICARE OF [place] [address] [place] [address] [phone] [id number] RIZVI, RENÉ Self - patient is the insured Medical (General) History Medical History History ICD Code colonoscopy 11-12-2008 egd 03-08-2000 reflux colon polyps substernal burning and pain type 2 diabetes mellitus Denies [place],CVA,Lung disease,renal disease Surgical History Surgery Date(Month/Year) hysterectomy kidney stone removal
--- OUTSIDE RECORDS SUMMARY | 2024-10-09 12:42 | XMS_ITS | Clinical Summary ---
Author Organization [facility] Address [address] [place] [address] Phone Care Team Providers Care Catering Server Name Role Phone Alexiaricardo Oralia Primary Care Provider [phone] Allergies Active Allergy Reactions Criticality Noted Date Comments Lisinopril Angioedema High 04/20/2018 Metformin Unknown 04/29/2015 Medications No known medications Surgical History Surgery Date Site/Laterality Comments HYSTERECTOMY Medical History Medical History Date Comments Hypertension Diabetes mellitus ([facility] V[facility], [facility] V28) Social History Tobacco Use Types [...] Group ID:PMA Type:Not on file Address: [facility] [facility] [place] [address] Care Teams Catering Server Relationship Specialty Start Date End Date Oralia Michelle [address] [place] [address] PCP - General Family Medicine 01/24/24
== END 2024-10-09 11:51 | disposition home or self-care (01) ==
LOC: HO.ENCR 11:20
PROVIDERS: Visit Provider Internal Medicine Endocrinology, Diabetes & Metabolism
DX: E11.65 Type 2 diabetes mellitus with hyperglycemia (principal); Z79.4 Long term (current) use of insulin; M81.0 Age-related osteoporosis without current pathological fracture
CPT/HCPCS: 99214

== ENCOUNTER → 2024-10-09 11:20 | Outpatient (BNVA) | payer MEDICARE, SELFPAY | PROVIDERS: Visit Provider Internal Medicine Endocrinology, Diabetes & Metabolism | DX: Z46.81 Encounter for fitting and adjustment of insulin pump (principal); E11.65 Type 2 diabetes mellitus with hyperglycemia; M81.0 Age-related osteoporosis without current pathological fracture; Z79.4 Long term (current) use of insulin; Z79.85 Long-term (current) use of injectable non-insulin antidiabetic drugs | CPT/HCPCS: 82947; 83036; 99212 ==

== ENCOUNTER 2024-11-21 09:59 | Outpatient (AMB) | payer MEDICARE, SELFPAY ==
--- NOTE | 2024-11-21 10:57 | MHC.AMDMED ---
Intake Intake Visit Reasons: 30 mins Assistant Cook Required: No Accompanied by: Self / Same As Patient Allergies metformin Allergy (Unknown, Verified 10/09/24 11:30) GI discomfort PFSH Medical History (Updated 11/21/24 @ 10:58 by Asuncion Yee RN) GERD (gastroesophageal reflux disease) Fibromyalgia Osteoporosis Vitamin D deficiency HLD (hyperlipidemia) HTN (hypertension) T2DM (type 2 diabetes mellitus) Type 2 diabetes mellitus with hyperglycemia Surgical History History of colonoscopy History of kidney stones Hx of hysterectomy Family History Father COPD (chronic obstructive pulmonary disease) Mother Osteoporosis Type 2 diabetes mellitus Social History Household Members: Spouse and Children Household Members Other:: , and adopted son Alcohol intake: former Patient Tobacco Use Status: Never used Tobacco Assessment & Plan Assessment & Plan (1) Type 2 diabetes mellitus with hyperglycemia: Code(s): E11.65 - Type 2 diabetes mellitus with hyperglycemia Plan: Patient presents for pump training for Omnipod 5 with Dexcom G7 The following topics were reviewed today: -Omnipod 5 jorden Omnipod user name: [email or web address] Password:[email or web address] Screen lock:[id number] Dexcom acct: .[employer] Password: [email or web address] Patient lost connection with Dexcom G7 to Dexcom G7 jorden. Recent Dexcom G7 password Patient inserted Dexcom G7 sensor, patient left with sensor in warmup Reviewed with patient once Dexcom G7 sensors connected to Dexcom G7 jorden, to then reconnect to Omnipod 5 vocational nurse lvn Patient will follow-up as needed Coding Level of Care Code Est Pt Level 1 (91622) Diagnoses Type 2 diabetes mellitus with hyperglycemia E11.65
--- OUTSIDE RECORDS SUMMARY | 2024-11-21 11:16 | XMS_ITS | Clinical Summary ---
Author Organization [facility] Address [address] [address] Phone Care Team Providers Care Circular Knitter Name Role Phone Pcp, Unknown Primary Care [...] (2 of 2 - PCV) 09/21/2021 09/21/2020 INFLUENZA VACCINE (#1) 2024 COVID-19 VACCINE ( - 2023-2 5 season) 2024 MAMMOGRAM 09/20/2025 09/21/2023, 10/31/2019, 03/20/2018 RSV VACCINE [...] topic Medical Devices Not on file Insurance MEDICARE REPLACEMENT MEDICARE REPLACEMENT [place] [id number] MEDICARE REPLACEMENT MEDICARE REPLACEMENT MEDICARE [place] [address] [place] [address] MEDICARE REPLACEMENT Care Teams Circular Knitter Relationship Specialty Start Date End Date Pcp, Unknown PCP - General 01/26/24 Additional Source Comments The information contained in this document represents components of the legal health record. It is not the complete legal health record.[facility]
--- OUTSIDE RECORDS SUMMARY | 2024-11-21 11:17 | XMS_ITS | Clinical Summary ---
Author Organization [facility] Address [address] [place] [address] Phone Care Team Providers Care Manager Graphic Name Role Phone Alexiaricardo Oralia Primary Care Provider [phone] Allergies Active Allergy Reactions Criticality Noted Date Comments Lisinopril Angioedema High 04/20/2018 Metformin Unknown 04/29/2015 Medications No known medications Surgical History Surgery Date Site/Laterality Comments HYSTERECTOMY Medical History Medical History Date Comments Hypertension Diabetes mellitus ([facility] V24, [facility] V28) Social History Tobacco Use Types [...] Last Done Comments Breast Cancer Screening 1950 Colorectal Cancer Screening: Colonoscopy 1950 Diabetes: Annual GFR (Glomerular Filtration Rate) 1950 Diabetes: Annual Foot Exam 1962 Diabetes: Annual Retina Eye Exam 1962 Zoster Vaccines (1 of 2) 2002 Diabetes: Annual Urine Albumin-Creatinine Ratio (uACR) 01/24/2024 [...] Group ID:PMA Type:Not on file Address: [address] [facility] [place] [address] Care Teams Manager Graphic Relationship Specialty Start Date End Date Oralia Michelle [address] [place] [address] PCP - General Family Medicine 01/24/24
--- OUTSIDE RECORDS SUMMARY | 2024-11-21 11:18 | XMS_ITS | Patient Health Record ---
Author Organization [facility] Address [address] [place] [address] Care Team Providers Care Frame Feeder Name Role Phone Jenifer Xiao Primary Care [...] Problem Status W/U Status Risk Notes Problem [id number] Colon cancer screening (Z12.11) Active confirmed Problem [id number] Gastroesophageal reflux disease without esophagitis (K21.9) Active confirmed Plan Of Treatment Future Test Test Name Order Date COLONOSCOPY 04/29/2015 Insurance Providers Payer Name Payer Address Payer Phone Subscriber Number Group Number Insured Name Patient Relationship to Insured Coverage Start Date Coverage End Date MEDICARE OF [employer] [employer] [address] [place] [address] [id number] RIZVI, RENÉ Self - patient is the insured Medical (General) History Medical History History ICD Code colonoscopy 11-12-2008 egd 03-08-2000 reflux colon polyps substernal burning and pain type 2 diabetes mellitus Denies [place],CVA,Lung disease,renal disease Surgical History Surgery Date(Month/Year) hysterectomy kidney stone removal
== END 2024-11-21 10:59 | disposition home or self-care (01) ==
LOC: HO.ENCR 09:59
PROVIDERS: Visit Provider Registered Nurse Diabetes Educator
DX: E11.65 Type 2 diabetes mellitus with hyperglycemia (principal)

== ENCOUNTER → 2024-11-21 09:59 | Outpatient (BNVA) | payer MEDICARE, SELFPAY | PROVIDERS: Visit Provider Registered Nurse Diabetes Educator | DX: E11.65 Type 2 diabetes mellitus with hyperglycemia (principal); Z96.41 Presence of insulin pump (external) (internal) | CPT/HCPCS: 99211 ==

== ENCOUNTER 2024-12-25 16:19 | Outpatient (AMB) | payer MEDICARE, SELFPAY ==
--- NOTE | 2024-12-25 16:20 | A.OFFVIS_ITS ---
Vital Signs 12/25/24 16:27 Height 5 ft 2 in Weight 136 lb 3.677 oz BMI 24.9 BP 108/62 Blood Pressure Location Rt brachial Position Sitting Pulse 87 Pulse Source Pulse Oximeter Pulse Oximetry (%) 96 Oxygen Delivery Method Room Air Intake Visit Reasons: Evenity completion plan & f/u Type 2 DM Intake Note: Patient present today to follow up on Type 2 Diabetes Mellitus and Completion of Evenity injection. Patient receives DME supplies through: [facility] Last Diabetic Eye exam: Due, needs to make an appointment Last Podiatry Visit: Does not see a Qualitative Researcher Random Glucose: 89 mg/dL HgA1C: 5.3%, 10/09/2024 Lunchroom Mother Required: No Accompanied by: Self / Same As Patient Allergies metformin Allergy (Unknown, Verified 12/25/24 16:28) GI discomfort Medication List - Last Reconciled 12/25/24 by Ifeanyi Hoskins MD acetone (urine) test (Ketone Urine Test strips) As directed aspirin 81 mg PO DAILY atorvastatin 80 mg PO DAILY bisacodyl (Dulcolax (bisacodyl)) 20 mg (4 x 5 mg) PO ONCE 1 day blood-glucose meter As directed 3x/day blood-glucose meter (OneEmerald Logicuch Verio Flex Meter) As directed test 4 times a day blood-glucose meter (Accu-Chek Guide Glucose Meter) 1 ea miscellaneous .checks 3 X/day blood-glucose sensor (DexSonogenix G7 Sensor device) continous every 10 days calcium carbonate 600 mg PO BID cholecalciferol (vitamin D3) 50 mcg PO DAILY dulaglutide (Trulicity) 1.5 mg (0.5 mL) subcut QWEEK insulin glargine (Lantus Solostar U-100 Insulin) 16 units subcut QPM PRN insulin lispro 70 units daily via pump subcutaneously use as directed; 30 days MDD 70 units NS insulin pump cart,auto,BT,G6/7 (Omnipod 5 G6-G7 Pods (Gen 5) subcutaneous cartridge) As directed insulin pump cart,auto,BT-cntr (Omnipod 5 G6 Intro Kit (Gen 5) subcutaneous cartridge with controller) As directed insulin pump cart,automated,BT (Omnipod 5 G6 Pods (Gen 5) subcutaneous c artridge) DIRECTED insulin syringe-needle U-100 (BD Insulin Syringe Ultra-Fine) qid prn pump failure lancets (OneTouch Delica Plus Lancet) USE TO TEST 4 TIMES A DAY losartan 25 mg PO DAILY 90 days omeprazole 40 mg PO DAILY pen needle, diabetic (BD Sheree 2nd Gen Pen Needle) USE DIRECTED FOUR TIMES A DAY polyethylene glycol 3350 (Miralax) 238 grams PO ONCE HPI Comments Details: 73 YO F with PMHx T2DM, HLD, Osteoporosis who is seen in F/U today for her osteoporosis. I did not address the diabetes today as the pump is not functioning the other is a sensor and no information is available She has a history of Osteoporosis due to early menopause. Received first Prolia injection 09/03/18. Received 2nd dose of Prolia 03/06/2019. Third Dose of Prolia 10/29/2019. Tolerated this well. She then cancelled her 4th dose and has not followed up or had labs repeated since. She has long standing history of Osteoporosis. Risk factors include early surgical menopause with bilateral oophorectomy at the age of 41. She was treated with Fosamax for 1 year, followed by IV reclast from 4471-4788 (received 4 doses). She does have a history of kidney stones, one episode in the past. Never used steroids or AC, but does use daily PPI for many years. Did have a fragility fracture in 2017 of the R leg/ankle. Menarche age 15, , never breastfed. Menopause age 41 after bilateral oophorectomy. She has lost 1.5 inches of height. She has 0-2 servings of dairy daily in the form of cheese and milk. She takes Calcium 600 mg PO BID daily. Taking Vitamin D 2000 IU daily. She does have a history of Osteoporosis in her family. DXA: 04/07/2021 FINDINGS: AP SPINE L1-L4: Current: BMD 0.703 g/cm2, Z-score -2.5, T-score -4.0, osteoporosis, 2.0% increase from baseline (<5% change is not significant). Baseline: BMD 0.689 g/cm2. LEFT FEMUR, NECK: Current: BMD 0.614 g/cm2, Z-score -1.6, T-score -3.0, osteoporosis. Baseline: BMD 0.618 g/cm2. LEFT FEMUR, TOTAL: Current: BMD 0.706 g/cm2, Z-score -1.2, T-score -2.4, osteopenia, 0.9% increase from baseline (<5% change is not significant). Baseline: BMD 0.700 g/cm2. She never started Tymlos for osteoporosis because co-pay was too high for both Tymlos and Evenity Labs: Laboratory Tests 12/07/20 12/07/20 08:00 08:00 Creatinine 0.77 Estimated GFR > 60 25-OH Vitamin D Total 40.7 PTH Intact 51 Calcium (PTH Intact) 9.7 started Evenity 11/2023 at [facility] . No side effects except injection site reaction. The patient is a 73-year-old female presenting with low bone density. She began receiving Evenity injections in November and is seven injections into the treatment. Initially, she experienced severe pain in her arms after the first injection, but subsequent doses have caused only minor swelling and pressure. There are four more Evenity injections planned, leading to the completion of treatment in November. Following this, the patient is slated to transition to Prolia injections every six months due to her low bone density. No fractures have occurred since her last visit, indicating stability. [facility] Medical History (Updated 11/21/24 @ 10:58 by Asuncion Yee RN) GERD (gastroesophageal reflux disease) Fibromyalgia Osteoporosis Vitamin D deficiency HLD (hyperlipidemia) HTN (hypertension) T2DM (type 2 diabetes mellitus) Type 2 diabetes mellitus with hyperglycemia Surgical History History of colonoscopy History of kidney stones Hx of hysterectomy Family History Father COPD (chronic obstructive pulmonary disease) Mother Osteoporosis Type 2 diabetes mellitus Social History Household Members: Spouse and Children Household Members Other:: , and adopted son Alcohol intake: former Patient Tobacco Use Status: Never used Tobacco Assessment & Plan Assessment & Plan (1) Osteoporosis: Code(s): M81.0 - Age-related osteoporosis without current pathological fracture Category: Medical Qualifiers: Osteoporosis type: unspecified Presence of current pathological fracture: unspecified Qualified Code(s): M81.0 - Age-related osteoporosis without current pathological fracture Plan: Secondary workup was negative. She has a very low bone density and history of fragility fractures of the right ankle. She had very high risk for fragility fracture in the future. On Evenity since 11/2023 Plan is to c transition of the Evenity to Prolia to start this month . Coding Level of Care Code Est Pt Level 3 (74274) Diagnoses Osteoporosis, unspecified osteoporosis type, unspecified pathological fracture presence M81.0 Osteoporosis type: unspecified Presence of current pathological fracture: unspecified
[2024-12-25 16:27] VITALS: BP 108/62; PULSE 87; O2SAT 96; BMI 24.9
[2024-12-25 16:38] LABS: Glucose, Whole Blood 89 mg/dL (60-115)
--- OUTSIDE RECORDS SUMMARY | 2024-12-25 18:56 | XMS_ITS | Patient Health Record ---
Author Organization [facility] Address [address] [place] [address] Care Team Providers Care Carpet Cutter Name Role Phone Jenifer Xiao Primary [...] GM As directed Orally Over the specified time.; Duration: 1 day(s) 04/29/2015 Active Vitamin D 2000 UNIT Orally Active Problems Problem Type SNOMED Code ICD Code Onset Dates Problem Status W/U Status Risk Notes Problem Colon cancer screening (450047482) Colon cancer screening (Z12.11) Active confirmed Problem Gastroesophageal reflux disease without esophagitis (528733858) Gastroesophageal reflux disease without esophagitis (K21.9) Active confirmed Plan Of Treatment Future Test Test Name Order Date COLONOSCOPY 04/29/2015 Insurance Providers Payer Name Payer Address Payer Phone Subscriber Number Group Number Insured Name Patient Relationship to Insured Coverage Start Date Coverage End Date MEDICARE OF [place] JORDYN [id number] [place] [id number] [phone] [id number] RIZVI RENÉ Self - patient is the insured Medical (General) History Medical History History ICD Code colonoscopy 11-12-2008 egd 03-08-2000 reflux colon polyps substernal burning and pain type 2 diabetes mellitus Denies PR,CVA,Lung disease,renal disease Surgical History Surgery Date(Month/Year) hysterectomy kidney stone removal
--- OUTSIDE RECORDS SUMMARY | 2024-12-25 18:56 | XMS_ITS | Clinical Summary ---
Author Organization [facility] Address [address] [place] [address] Phone Care Team Providers Care Licsw Name Role Phone Alexiaricardo Oralia Primary Care Provider [phone] Allergies Active Allergy Reactions Criticality Noted Date Comments Lisinopril Angioedema High 04/20/2018 Metformin Unknown 04/29/2015 Medications No known medications Surgical History Surgery Date Site/Laterality Comments HYSTERECTOMY Medical History Medical History Date Comments Hypertension Diabetes mellitus ([facility] V24, [facility] V28) Social History Tobacco Use [...] Address: JORDYN [facility] [place] [address] Care Teams Licsw Relationship Specialty Start Date End Date Oralia Michelle [address] [place] [address] PCP - General Family Medicine 01/24/24
--- OUTSIDE RECORDS SUMMARY | 2024-12-25 18:56 | XMS_ITS | Encounter Summary ---
Author Organization [employer] Address [address] [facility] 7t [place] [address] Care Team Providers Care Motorboat Mechanic Inboard Name Role Phone Name, Kirby MOSLEY Primary Care Provider [phone] Encounter Details Date Type Department Care Team ([facility] Contact Info) Description 12/25/2024 Orders Only GENERIC EXTERNAL DATA DEPARTMENT Provider, Generic External Data Social History Tobacco Use Types Packs/Day Years Used Date Smoking Tobacco: Never Smokeless Tobacco: Never Alcohol Use Standard Drinks/Week Comments Never 0 [...] not to disclose 2021 10:34 AM EDT documented as of this encounter Plan of Treatment Not on file documented as of this encounter Procedures Procedure Name Priority Date/Time Associated Diagnosis Comments GLUCOSE, WHOLE BLOOD Routine 12/25/2024 4:33 PM EST documented in this encounter Results * Glucose, Whole Blood (12/25/2024 4:33 PM EST) Glucose, Whole Blood 89 60 - 115 mg/dL [facility] Comment:METER #: [id number] 0Testing performed in the Endocrinology Department [address] , [address], [facility]. 12/25/2024 4:33 PM EST 12/25/2024 4:37 PM EST us Generic External Data Provider LAB BLOOD ORDERAB LES Final Result [facility] [address] [place] [address] [phone] documented in this encounter Visit Diagnoses Not on filedocumented in this encounter Additional Health Concerns Assessment Noted Time PHQ-9 Depression Total Score: 0 09/18/19 24 3:45 PM EDT documented as of this encounter Care Teams Motorboat Mechanic Inboard Relationship Specialty Start Date End Date Name, MD Kirby [address] [place] [address] PCP - General Internal Medicine 10/25/23 documented as of this encounter
--- OUTSIDE RECORDS SUMMARY | 2024-12-25 18:56 | XMS_ITS | Clinical Summary ---
Author Organization [facility] Address [address] [address] Phone Care Team Providers Care Parts Clerk Name Role Phone Pcp, Unknown Primary Care [...] 09/21/2020 INFLUENZA VACCINE (#1) 2024 COVID-19 VACCINE (1 - 2024-2 6 season) 2024 MAMMOGRAM 09/20/2025 09/21/2023, 10/31/2019, 03/20/2018 [...] file Insurance MEDICARE REPLACEMENT MEDICARE REPLACEMENT [place] [id number] MEDICARE REPLACEMENT MEDICARE REPLACEMENT MEDICARE [place] [address] [place] [address] MEDICARE REPLACEMENT Care Teams Parts Clerk Relationship Specialty Start Date End Date Pcp, Unknown PCP - General 01/26/24 Additional Source Comments The information contained in this document represents components of the legal health record. It is not the complete legal health record.[facility]
--- OUTSIDE RECORDS SUMMARY | 2024-12-25 18:56 | XMS_ITS | Clinical Summary ---
Author Organization [employer] Address [address] [place] [address] 7t [place] [address] Care Team Providers Care Drive Away Driver Name Role Phone Name, Kirby MOSLEY Primary Care Provider [phone] Allergies Active Allergy Reactions Criticality Noted Date Comments Lisinopril Angioedema High 04/20/2018 Metformin Unknown 04/29/2015 Metformin Hcl Unknown 04/29/2015 Other Unknown 06/28/2023 Medications aspirin 81 MG EC tablet Take 1 tablet by mouth at bed time. 03/21/19 19 Active atorvastatin (Lipitor) 80 MG tablet Take 80 mg by mouth Once per day. Active cholecalciferol (D3-5) 5,000 Units tablet Take 1 tablet by mouth Once per day. Active losartan (Cozaar) 25 MG tablet Take 25 mg by mouth Once per day. Active benzocaine (Orajel) 10 % mucosal gelIndications: Tongue ulceration Use in the mouth or throat [...] 25 Active Insulin Disposable Pump (Omnipod 5 [id number] Pods Gen 5) misc as directed 03/01/19 [...] Encounters Date Type Department Care Team Description 12/25/2024 Orders Only GENERIC EXTERNAL DATA DEPARTMENT Provider, Generic External Data 10/29/2024 4:00 PM EDT Office Visit [facility] [address] [place] [address] Kirby Evangelista MD Controlled type 2 diabetes mellitus with diabetic nephropathy, with long-term current use of insulin ([facility]) (Primary Dx); Healthcare maintenance 10/29/2024 Travel 10/28/2024 Travel 10/25/2024 Telephone [facility]ICINE [address] [place] [address] Kirby Evangelista MD CHARTPREP 10/09/2024 Orders Only GENERIC EXTERNAL DATA DEPARTMENT Provider, Generic External Data 09/26/2024 Orders Only [facility] [address] [place] [address] Oralia Michelle FNP from Last 3 Months Immunizations Immunization Administration [...] Sign Reading Time Taken Comments Blood Pressure 132/64 10/29/2024 4:00 PM EDT Pulse 76 10/29/2024 4:00 PM EDT Temperature 36.1 C (97 F) 10/29/2024 4:00 PM EDT Respiratory Rate 12 10/29/2024 4:00 PM EDT Oxygen Saturation 99% 10/29/2024 4:00 PM EDT Inhaled Oxygen Concentration - - Weight 62.7 kg (138 lb 3.2 oz) 10/29/2024 4:00 P M EDT Height 154.9 cm (5' 1 ) 10/29/2024 4:00 PM EDT Body Mass Index 26.11 10/29/2024 4:00 PM EDT Plan of Treatment Health Maintenance Due Date Last Done Comments CT Colonography 1950 Colonoscopy 1950 Colorectal Cancer Screening 1950 FIT DNA/Cologuard 1950 FIT 1950 FOBT 1950 Sigmoidoscopy 1950 Eye Exam 1962 Alcohol/Substance Use Screening 1964 Zoster Vaccines (1 of 2) 2002 RSV Patients and Patients Aged 60 years or older (1 - Risk 60-74 years 1-dose series) 2012 Depression Screening 09/17/2024 09/18/2023, 09/18/19 24 COVID-19 Vaccine (2023- season) 2024 10/20/2023, 12/15/2022, 10/13/2021, Additional history exists Influenza Vaccine (#1) 2024 , 12/15/2022, 11/24/2020, Additional history exists SDOH Screening 04/19/2025 04/19/2024 Diabetes: Hemoglobin A1C 04/28/2025 025, 04/30/2024, 08/10/2022, Additional history exists Lipid Panel 06/24/2025 06/24/2024, 1202/2022, 12/07/2020 Diabetes: Foot Exam 10/29/2025 10/29/2024, 10/29/2024, 10/29/2024, Additional history exists Tobacco Screening 10/29/2025 10/29/2024 Mammogram 09/26/2026 09/26/2024, 08/02/2023, 06/29/2021, Additional history exists DTaP/Tdap/Td Vaccines (2 [...] WHOLE BLOOD Routine 12/25/2024 4:33 PM EST POCT GLYCATED HEMOGLOBIN, TOTAL Routine 10/29/2024 4:01 PM EDT Controlled type 2 diabetes mellitus with diabetic nephropathy, with long-term current use of insulin ([facility]) POCT GLUCOSE Routine 10/29/2024 4:01 PM EDT Controlled type 2 diabetes mellitus with diabetic nephropathy, with long-term current use of insulin ([facility]) GLUCOSE, WHOLE BLOOD Routine 10/09/2024 11:29 AM EDT BI MAMMOGRAM SCREENING TOMOSYNTHESIS BILATERAL Routine 09/26/2024 8:26 AM EDT LIPID PANEL, STANDARD Routine 06/24/2024 8:13 AM EDT Controlled type 2 diabetes mellitus with diabetic nephropathy, with long-term current use of insulin ([facility]) Age-related osteoporosis without current pathological fracture On statin therapy HEPATITIS C VIRAL RNA, QUANTITATIVE, REAL-TIME PCR Routine 11/14/2023 9:38 AM EDT Routine health maintenance from Last 3 Months or Most Recently Relevant to Health Maintenance Results * Glucose, Whole Blood (12/25/2024 4:33 PM EST) Only the most recent of2 resultswithin the time period is included. Glucose, Whole Blood 89 60 - 115 mg/dL [facility] Comment:METER #: [id number] 0Testing performed in the Endocrinology Department [address] , [address], [facility]. 12/25/2024 4:33 PM EST 12/25/2024 4:37 PM EST Generic External Data Provider LAB BLOOD ORDERAB LES Final Result Performing Organization Address City/State/[facility] Co de Phone Number [facility] [address] [place] [phone] * POCT Hgb A1c (10/29/2024 4:01 PM EDT) Hemoglobin A1C 5.5 4.0 - 5.7 % QC Media Lot # [id number] Lot# Expiration Date [id number] Blood 10/29/2024 4:01 PM EDT Kirby Evangelista MD POINT OF CARE TEST ENTER/EDIT OR DERABLES Final Result * POCT Glucose (10/29/2024 4:01 PM EDT) Glucose Blood, POC 89 60 - 200 mg/dL QC Media Lot # [id number] Lot# Expiration Date 22,726 Blood Capillary blood specimen / Unknown 10/29/2024 4:01 PM EDT Kirby Evangelista MD POINT OF CARE TEST ENTER/EDIT OR DERABLES Final Result * BI Mammogram Screening Tomosynthesis Bilateral (09/26/2024 8:26 AM EDT) Anatomical Region Laterality Modality Breast Bilateral Mammography 09/26/2024 8:26 AM EDT Narrative 10/05/2024 9:28 PM EDT [facility] [address] [place], [place] [address] Mammography Report Signed Patient: Akua Easley MR#: [id number] : 1950 Acct:[id number] Age/Sex: 73 / F ADM Date: 09/26/24 Loc: HO.MAMMO Attending Dr: Oralia Michelle NP Ordering Physician: Oralia Michelle NP Results: 1Negativ e Date of Service: 09/26/24 Follow Up: 1 Year From Orig inal Mammogram Procedure(s): MM tomosynthesis screening BI Accession Number(s): [id number] cc: Oralia Michelle NP; Name,Kirby MSOLEY EXAMINATION: MM SCREENING DIGITAL BREAST TOMOSYNTHESIS, BILATERAL [...] OV> 10/05/242124 DD/ 5 TD/TT: 09/26/24 0846 Bleach Tester: Procedure Note Donotuseinterpreter, Image - 10/05/2024 [place] [facility] [address] [place] [address] Mammography Report Signed Patient: Akua EasleyMR#: [id number] : 1950cct:[id number] Age/Sex: 73 / FADM Date: 09/26/24 Loc: HO.MAMMO Attending Dr: Oralia Michelle NP Ordering Physician: Oralia Michelle NPResults: 1Negativ e Date of Service: 09/26/24Follow Up: 1 Year From Orig inal Mammogram Procedure(s): MM tomosynthesis screening BI Accession Number(s): [id number] cc: Oralia Michelle RAILROAD CAR REPAIRMAN; Name,Kirby MOSLEY EXAMINATION: MM SCREENING DIGITAL BREAST [...] Hunter Frias MD in OV> 10/05/242124 DD/ 08 TD/TT: 09/26/24 0846 Bleach Tester: Oralia Michelle NETWORK OPERATIONS ANALYST IMG BI PROCEDURES Final Result * Lipid Panel, Standard (06/24/2024 8:13 AM EDT) Triglycerides 73 <150 mg/dL [facility] Comment:Desirable Triglyceri de: less than 150 mg/dLBorderline High Triglyceride 150-199 mg/dLHigh Triglyceride: 200-499 mg/dLVery High Triglyceride: greater than or equal to 5OO mg/dL Cholesterol 122 <200 mg/dL [facility] Comment:Desirable Cholestero l: less than 200 mg/dLBorderline High Cholesterol: 200-239 mg/dLHigh Cholesterol: greater than 239 mg/dL LDL Cholesterol Calculated 59 <100 mg/dL [facility] Comment:Desirable LDL: less than 100 mg/dLNear Optimal/Above Optimal LDL: 110- 129 mg/dLBorderline High LDL: 130-159 mg/dLHigh LDL: 160-189 mg/dLVery High LDL: greater than or equal to 190 mg/dL HDL Cholesterol 49 >40 mg/dL [facility] Comment:Desirable HDL: great er than 40 mg/dL Note: This HDL assay may give artificially low results in patients with liver disease. Blood Venous blood specimen / Unknown 06/24/2024 8:13 AM EDT 06/24/2024 8:13 AM EDT Kirby Evangelista MD LAB BLOOD ORDERABLES Final Resul t [facility] [address] [place], [place] [phone] * Hepatitis C Viral RNA, Quantitative, Real-Time PCR (11/14/2023 9:38 AM EDT) Hepatitis C Viral Load <15 NOT DETECTED NOT DETECTED IU/mL [facility] HCV Log PCR <1.18 NOT DETECTED NOT DETECTED Log IU/mL [facility] Comment:For additional infor matkatty, please refer tohttp://education.[email or web address] DBA eGifter.IndiaEver.com/faq/VVM94w7(This link is being provided for informational/educational purposes only.)THIS TEST WAS PERFORMED AT:[facility] [place] [phone] VINSON MD Blood 11/14/2023 9:38 AM EDT 11/14/2023 9:38 AM EDT us Oralia Viviana NETWORK OPERATIONS ANALYST LAB BLOOD ORDERABLES Final Resu lt [facility] [address] [place] [address] [phone] from Last 3 Months or Most Recently Relevant to Health Maintenance Insurance [facility] MEDICARE ADVANTAGE Care Teams Drive Away Driver Relationship Specialty Start Date End Date Name, MD Kirby [address] [place], [place] PCP - General Internal Medicine 10/25/23
== END 2024-12-26 14:09 | disposition home or self-care (01) ==
LOC: HO.ENCR 16:19
PROVIDERS: Visit Provider Internal Medicine Endocrinology, Diabetes & Metabolism
DX: M81.0 Age-related osteoporosis without current pathological fracture (principal)
CPT/HCPCS: 99213

== ENCOUNTER → 2024-12-25 16:19 | Outpatient (BNVA) | payer MEDICARE, SELFPAY | PROVIDERS: Visit Provider Internal Medicine Endocrinology, Diabetes & Metabolism | DX: E11.9 Type 2 diabetes mellitus without complications (principal); M81.0 Age-related osteoporosis without current pathological fracture | CPT/HCPCS: 82947; 99212 ==

== ENCOUNTER 2025-01-10 09:44 | Outpatient (REF) | payer MEDICARE, SELFPAY ==
--- OUTSIDE RECORDS SUMMARY | 2025-01-10 10:23 | XMS_ITS | Clinical Summary ---
Author Organization [facility] Address [address] [address] Phone Care Team Providers Care Gate Clerk Name Role Phone Pcp, Unknown Primary [...] file Insurance MEDICARE REPLACEMENT MEDICARE REPLACEMENT [place] [id number] MEDICARE REPLACEMENT MEDICARE REPLACEMENT MEDICARE [place] [address] [place] [address] MEDICARE REPLACEMENT Care Teams Gate Clerk Relationship Specialty Start Date End Date Pcp, Unknown PCP - General 01/26/24 Additional Source Comments The information contained in this document represents components of the legal health record. It is not the complete legal health record.[facility]
--- OUTSIDE RECORDS SUMMARY | 2025-01-10 10:23 | XMS_ITS | Clinical Summary ---
Author Organization [facility] Address [address] [place] [address] Phone Care Team Providers Care Sand Conditioner Machine Name Role Phone Alexiaricardo Oralia Primary Care Provider [phone] Allergies Active Allergy Reactions Criticality Noted Date Comments Lisinopril Angioedema High 04/20/2018 Metformin Unknown 04/29/2015 Medications No known medications Surgical History Surgery Date Site/Laterality Comments HYSTERECTOMY Medical History Medical History Date Comments Hypertension Diabetes mellitus ([facility] V24, [facility] V28) Social History Tobacco Use Types Packs/Day [...] Group ID:PMA Type:Not on file Address: JORD[address] [facility] [place] [address] Care Teams Sand Conditioner Machine Relationship Specialty Start Date End Date Oralia Michelle [address] [place] [address] PCP - General Family Medicine 01/24/24
--- OUTSIDE RECORDS SUMMARY | 2025-01-10 10:23 | XMS_ITS | Clinical Summary ---
Author Organization [employer] Address [address] [place] [address] 7t [place] [address] Care Team Providers Care Clothing Man Name Role Phone Name, Kirby MOSLEY Primary Care Provider [phone] Allergies Active Allergy Reactions Criticality Noted Date [...] 25 Active Insulin Disposable Pump (Omnipod 5 [id number] Pods Gen 5) misc as directed 03/01/19 [...] Data 10/29/2024 4:00 PM EDT Office Visit [facility] MEDICINE [address] [place] [address] NameKirby MD Controlled type 2 diabetes mellitus with diabetic nephropathy, with long-term current use of insulin ([facility]) (Primary Dx); Healthcare maintenance 10/29/2024 Travel 10/28/2024 Travel 10/25/[address] [facility] [address] [place], [place] [phone] NameKirby MD CHARTPREP from Last 3 Months Immunizations Immunization Administration [...] Eye Exam 1962 Alcohol/Substance Use Screening 1964 RSV Patients and Patients Aged 60 years or older (1 - Risk 50-74 years 1-dose series) 2002 Zoster Vaccines (1 of 2) 2002 Depression Screening 09/17/2024 09/18/2023, 09/18/19 COVID-19 Vaccine ( season) 2024 10/20/2023, 12/15/2022, 10/13/2021, Additional history exists Influenza Vaccine (#1) 2024 , 12/15/2022, 11/24/2020, Additional history exists SDOH Screening 04/19/2025 04/19/2024 Diabetes: Hemoglobin A1C 04/28/2025 025, 04/30/2024, 08/10/2022, Additional history exists Lipid Panel 06/24/2025 06/24/2024, 12/2 02/2022, 12/07/2020 Diabetes: Foot Exam 10/29/2025 10/29/2024, 10/29/2024, 10/29/2024, Additional history exists Tobacco Screening 10/29/2025 10/29/2024 Mammogram 09/26/2026 09/26/2024, 08/0 02/2023, 06/29/2021, Additional [...] nephropathy, with long-term current use of insulin ([facility]) POCT GLUCOSE Routine 10/29/2024 4:01 PM EDT Controlled type 2 diabetes mellitus with diabetic nephropathy, with long-term current use of insulin ([facility]) BI MAMMOGRAM SCREENING TOMOSYNTHESIS BILATERAL Routine 09/26/2024 8:26 AM EDT LIPID PANEL, STANDARD Routine 06/24/2024 8:13 AM EDT Controlled type 2 diabetes mellitus with diabetic nephropathy, with long-term current use of insulin ([facility]) Age-related osteoporosis without current pathological fracture On statin therapy HEPATITIS C VIRAL RNA, QUANTITATIVE, REAL-TIME PCR Routine 11/14/2023 9:38 AM EDT Routine health maintenance from Last 3 Months or Most Recently Relevant to Health Maintenance Results * Glucose, Whole Blood (12/25/2024 4:33 PM EST) Glucose, Whole Blood 89 60 - 115 mg/dL [facility] Comment:METER #: [id number] 0Testing performed in the Endocrinology Department and[facility], [address], [place]. 12/25/2024 4:33 PM EST 12/25/2024 4:37 PM EST Generic External Data Provider LAB BLOOD ORDERAB LES Final Result [facility] [address] [facility] [place] [address] [phone] * POCT Hgb A1c (10/29/2024 4:01 [...] AM EDT Narrative 10/05/2024 9:28 PM EDT [facility] [address] [place] [address] Mammography Report Signed Patient: Akua Easley MR#: [id number] : 1950 Acct:[id number] Age/Sex: 73 / F ADM Date: 09/26/24 Loc: HO.MAMMO Attending Dr: Oralia Michelle NP Ordering Physician: Oralia Michelle NP Results: 1Negativ e Date of Service: 09/26/24 Follow Up: 1 Year From Orig ina Mammogram Procedure(s): MM tomosynthesis screening BI Accession Number(s): [id number] cc: Oralia Michelle NP; Name,Kirby MOSLEY EXAMINATION: [...] OV> 10/05/242124 DD/ 08 TD/TT: 09/26/24 0846 Bundler: Procedure Note Donotuseinterpreter, Image - 10/05/2024 [facility] [address] [place] [address] Mammography Report Signed Patient: Akua EasleyMR#: [id number] : 1950cct:[id number] Age/Sex: 73 / FADM Date: 09/26/24 Loc: HO.MAMMO Attending Dr: Oralia Michelle NP Ordering Physician: Oralia Michelle NPResults: 1Negativ e Date of Service: 09/26/24Follow Up: 1 Year From Orig inal Mammogram Procedure(s): MM tomosynthesis screening BI Accession Number(s): [id number] cc: Oralia Michelle ASBESTOS BRAKE LINING FINISHER; Name,Kirby MOSLEY EXAMINATION: MM SCREENING DIGITAL BREAST [...] in OV> 10/05/242124 DD/ 5 TD/TT: 09/26/24 08 Bundler: Oralia COLEP IMG BI PROCEDURES Final Result * Lipid Panel, Standard (06/24/2024 8:13 AM EDT) Triglycerides 73 <150 mg/dL [facility] Comment:Desirable Triglyceri de: less than 150 mg/dLBorderline High Triglyceride 150-199 mg/dLHigh Triglyceride: 200-499 mg/dLVery High Triglyceride: greater than or equal to 5OO mg/dL Cholesterol 122 <200 mg/dL [facility] Comment:Desirable Cholestero l: less than 200 mg/dLBorderline High Cholesterol: 200-239 mg/dLHigh Cholesterol: greater than 239 mg/dL LDL Cholesterol Calculated 59 <100 mg/dL [facility] Comment:Desirable LDL: less than 100 mg/dLNear Optimal/Above Optimal LDL: 110- 129 mg/dLBorderline High LDL: 130-159 mg/dLHigh LDL: 160-189 mg/dLVery High LDL: greater than or equal to 190 mg/dL HDL Cholesterol 49 >40 mg/dL [facility] Comment:Desirable HDL: great er than 40 mg/dL Note: This HDL assay may give artificially low results in patients with liver disease. Blood Venous blood specimen / Unknown 06/24/2024 8:13 AM EDT 06/24/2024 8:13 AM EDT us Kirby Evangelista MD LAB BLOOD ORDERABLES Final Resul t [facility] [address] [place] [address] [phone] * Hepatitis C Viral RNA, Quantitative, Real-Time PCR (11/14/2023 9:38 AM EDT) Hepatitis C Viral Load <15 NOT DETECTED NOT DETECTED IU/mL [facility] HCV Log PCR <1.18 NOT DETECTED NOT DETECTED Log IU/mL [facility] Comment:For additional infor mation, please refer tohttp://education.HeiaHeia.com/faq/HPC57s6(This link is being provided for informational/educational purposes only.)THIS TEST WAS PERFORMED AT:[facility] [place] [phone] VINSON MD Blood 11/14/2023 9:38 AM EDT 11/14/2023 9:38 AM EDT us Oralia Alexiaricardo CARDIAC REHAB NURSE LAB BLOOD ORDERABLES Final Resu lt [facility] [address] [place] [address] [phone] from Last 3 Months or Most Recently Relevant to Health Maintenance Insurance [facility] MEDICARE ADVANTAGE Care Teams Clothing Man Relationship Specialty Start Date End Date Name, MD Kirby [address] [place] [address] PCP - General Internal Medicine 10/25/23
--- OUTSIDE RECORDS SUMMARY | 2025-01-10 10:23 | XMS_ITS | Patient Health Record ---
Author Organization [facility] Address [address] [place] [address] Care Team Providers Care Supervisor Cemetery Workers Name Role Phone Jenifer Xiao Primary Care Provider Goyo Alfonso Jr Unavailable [phone] Allergies Allergen (clinical drug ingredient) Drug/Non Drug Allergy documented on EMR Reaction Allergy Type Onset Date Status antibiotic but unsur e of name (uncoded) Unknown Allergy Active metformin Metformin HCl Unknown Drug Allergy Act jay Reason For Referral No Information Medications Medication SIG (Take, Route, Frequency, Duration) Notes Start Date End Date Status Calcium 1 tab Oral Active Lovastatin Active Amitriptyline HCl 25 MG Tablet 1 tablet Orally Once a day Active HumaLOG Active NexIUM 40 MG Capsule Delayed Release 1 capsule Orally Once a day Active Colyte with Flavor Packs 240 GM Solution Reconstituted As directed Orally Over the specified time.; Duration: 1 day(s) 04/29/2015 Active Vitamin D 2000 UNIT Tablet Orally Active Social History Social History Additional Details Category Social Info Options Details Miscellaneous: Marital status: Occupation: unemployed Problems Problem Type SNOMED Code ICD Code Onset Dates Problem Status W/U Status Risk Notes Problem Colon cancer screening (323977218) Colon cancer screening (Z12.11) Active confirmed Problem Gastroesophageal reflux disease without esophagitis (054217012) Gastroesophageal reflux disease without esophagitis (K21.9) Active confirmed Plan Of Treatment Future Test Test Name Order Date COLONOSCOPY 04/29/2015 Insurance Providers Payer Name Payer Address Payer Phone Subscriber Number Group Number Insured Name Patient Relationship to Insured Coverage Start Date Coverage End Date MEDICARE OF [place] [address] [place] [address] [id number] RENÉ RIZVI Self - patient is the insured Medical (General) History Medical History History ICD Code colonoscopy 11-12-2008 egd 03-08-2000 reflux colon polyps substernal burning and pain type 2 diabetes mellitus Denies NC,CVA,Lung disease,renal disease Surgical History Surgery Date(Month/Year) hysterectomy kidney stone removal
[2025-01-10 10:36] LABS: Albumin Level 4.3 g/dL (3.5-5.0); Anion Gap 12 (12-20); Blood Urea Nitrogen 23 mg/dL (9-16); Calcium 8.8 mg/dL (8.4-10.2); Carbon Dioxide 25 mmol/L (22-29); Chloride 111 mmol/L (96-108); Estimated Glomerular Filt Rate > 60; Potassium 3.8 mmol/L (3.3-5.1); Sodium 144 mmol/L (135-145)
== END 2025-01-10 09:45 | disposition home or self-care (01) ==
LOC: HO.10HDL 09:44
PROVIDERS: Visit Provider Internal Medicine Endocrinology, Diabetes & Metabolism
DX: M81.0 Age-related osteoporosis without current pathological fracture (principal)
CPT/HCPCS: 36415; 80048; 82040

== ENCOUNTER 2025-01-20 09:36 | Outpatient (AMB) | payer MEDICARE, SELFPAY ==
--- NOTE | 2025-01-20 10:14 | AM.OFFVISNUR ---
Intake Visit Reasons: 1st Prolia Allergies metformin Allergy (Unknown, Verified 12/25/24 16:28) GI discomfort Office Meds Prolia 60 mg/mL subcutaneous syringe Performing Provider: Ifeanyi Hoskins MD Performing Location: [facility] Endocrinology Administered by: Deepti Torres RN on 01/20/25 09:58 Dose Route Admin Location Dispensed Lot Number Expiration Date NDC Provider Network Manager 60 mg subcut left upper arm 1 mL [id number] 04/20/27 91157-347-49 [facility] Total Dispensed Waste 1 mL 0 % Comments: Pt tolerated injection well. Pt observed for 15 mins after prolia injection was administered. No adverse reactions observed or reported. Pt denied any symptoms such as shortness of breath, itchiness or difficulty breathing. Pt advised to call the office if she experiences any reactions such as site reactions. Pt confirmed understanding with no further questions at this time. Assessment & Plan Assessment & Plan Orders: Orders AMB Denosumab Injection Practice Supplied Today M81.0 - Age-related osteoporosis without current pathological fracture Coding
--- OUTSIDE RECORDS SUMMARY | 2025-01-20 11:25 | XMS_ITS | Clinical Summary ---
Author Organization [employer] Address [address] [place] [address] [address] [place] [address] Care Team Providers Care Director Of Database Marketing Name Role Phone Name, Kirby MOSLEY Primary Care Provider [phone] Allergies Active Allergy Reactions Criticality Noted Date [...] 25 Active Insulin Disposable Pump (Omnipod 5 [id number] Pods Gen 5) misc as directed 03/01/19 [...] Encounters Date Type Department Care Team Description 01/10/2025 Orders Only GENERIC EXTERNAL DATA DEPARTMENT Provider, Generic External Data 12/25/2024 Orders Only GENERIC EXTERNAL DATA DEPARTMENT Provider, Generic External Data 10/29/2024 4:00 PM EDT Office Visit [facility] MEDICINE [address] [place] [phone] Kirby Evangelista MD Controlled type 2 diabetes mellitus with diabetic nephropathy, with long-term current use of insulin ([facility]) (Primary Dx); Healthcare maintenance 10/29/2024 Travel 10/28/2024 Travel 10/25/[address] [facility] MEDICINE [address] [place] [phone] Kirby Evangelista MD CHARTPREP from Last 3 Months Immunizations [...] 2) 2002 Depression Screening 09/17/2024 09/18/2023, 09/18/19 24 COVID-19 Vaccine ( season) 2024 10/20/2023, 12/15/2022, [...] Procedure Name Priority Date/Time Associated Diagnosis Comments ALBUMIN Routine 01/10/2025 9:46 AM EST BASIC METABOLIC PANEL, FASTING Routine 01/10/2025 9:46 AM EST GLUCOSE, WHOLE BLOOD Routine 12/25/2024 4:33 PM EST POCT GLYCATED HEMOGLOBIN, TOTAL Routine 10/29/2024 4:01 PM EDT Controlled type 2 diabetes mellitus with diabetic nephropathy, with long-term current use of insulin ([facility]) POCT GLUCOSE Routine 10/29/2024 4:01 PM EDT Controlled type 2 diabetes mellitus with diabetic nephropathy, with long-term current use of insulin ([facility]) BI MAMMOGRAM SCREENING TOMOSYNTHESIS BILATERAL Routine 09/26/2024 8:26 AM EDT LIPID PANEL, STANDARD Routine 06/24/2024 8:13 AM EDT Controlled type 2 diabetes mellitus with diabetic nephropathy, with long-term current use of insulin ([facility]) Age-related osteoporosis without current pathological fracture On statin therapy HEPATITIS C VIRAL RNA, QUANTITATIVE, REAL-TIME PCR Routine 11/14/2023 9:38 AM EDT Routine health maintenance from Last 3 Months or Most Recently Relevant to Health Maintenance Results * (ABNORMAL) Basic Metabolic Panel, Fasting (01/10/2025 9:46 AM EST) Sodium 144 135 - 145 mmol/L [facility] Potassium 3.8 3.3 - 5.1 mmol/L [facility] Chloride 111(H) 96 - 108 mmol/L [facility] Carbon Dioxide 25 22 - 29 mmol/L [facility] Anion Gap 12 12 - 20 [facility] Urea Nitrogen (BUN) 23(H) 9 - 16 mg/dL [facility] Creatinine, Serum 0.75 0.5 - 1.4 mg/dL [facility] Estimated Glomerular Filt Rate >60 [facility] Comment:Chronic Kidney Disea se: Estimated GFR < 60 mL/min/[id number] Kidney Disease: Estimated GFR < 15 mL/min/1.73m2 Glucose Fasting 84 60 - 99 mg/dL [facility] Calcium 8.8 8.4 - 10.2 mg/dL [facility] 01/10/2025 9:46 AM EST 01/10/2025 10:04 AM EST us Generic External Data Provider LAB BLOOD ORDERAB LES Final Result Performing Organization Address [facility] Co de Phone Number [facility] [address] [place] [phone] * Albumin (01/10/2025 9:46 AM EST) Albumin Level 4.3 3.5 - 5.0 g/dL [facility] 01/10/2025 9:46 AM EST 01/10/2025 10:04 AM EST Generic External Data Provider LAB BLOOD ORDERAB LES Final Result Performing Organization Address [facility] Co de Phone Number [facility] [address] [place] [phone] * Glucose, Whole Blood (12/25/2024 4:33 PM EST) Glucose, Whole Blood 89 60 - 115 mg/dL [facility] Comment:METER #: [id number] 0Testing performed in the Endocrinology Department [address]. 12/25/2024 4:33 PM EST 12/25/2024 4:37 PM EST Generic External Data Provider LAB BLOOD ORDERAB LES Final Result [facility] [address] [facility] [place] [phone] [phone] * POCT Hgb A1c (10/29/2024 4:01 PM EDT) Hemoglobin A1C 5.5 4.0 - 5.7 % QC Media Lot # [id number] Lot# Expiration Date [id number] Blood 10/29/2024 4:01 PM EDT us Kirby Evangelista MD POINT OF [...] AM EDT Narrative 10/05/2024 9:28 PM EDT [facility] [address] [place] [address] Mammography Report Signed Patient: Akua Easley MR#: [id number] : 1950 Acct:[id number] Age/Sex: 73 / F ADM Date: 09/26/24 Loc: HO.MAMMO Attending Dr: Oralia Michelle NP Ordering Physician: Oralia Michelle NP Results: 1Negativ e Date of Service: 09/26/24 Follow Up: 1 Year From Orig inal Mammogram Procedure(s): MM tomosynthesis screening BI Accession Number(s): [id number] cc: Oralia Michelle NP; Name,Kirby MOSLEY EXAMINATION: [...] OV> 10/05/242124 DD/ 5 TD/TT: 09/26/24 0846 Psychotherapist: Procedure Note Donotuseinterpreter, Image - 10/05/2024 [place] [facility] [address] [place] [address] Mammography Report Signed Patient: Akua EasleyMR#: [id number] : 1950cct:[id number] Age/Sex: 73 / FADM Date: 09/26/24 Loc: HO.MAMMO Attending Dr: Oralia Michelle NP Ordering Physician: Oralia Michelle NPResults: 1Negativ e Date of Service: 09/26/24Follow Up: 1 Year From Orig ina Mammogram Procedure(s): MM tomosynthesis screening BI Accession Number(s): [id number] cc: Oralia Michelle NP; Name,Kirby MOSLEY EXAMINATION: [...] MD in OV> 10/05/242124 DD/ 5 TD/TT: 09/26/24845 Psychotherapist: Oralia Michelle MANAGER ENTRY IMG BI PROCEDURES Final Result * Lipid Panel, Standard (06/24/2024 8:13 AM EDT) Triglycerides 73 <150 mg/dL [facility] Comment:Desirable Triglyceri de: less than 150 mg/dLBorderline High Triglyceride 150-199 mg/dLHigh Triglyceride: 200-499 mg/dLVery High Triglyceride: greater than or equal to 5OO mg/dL Cholesterol 122 <200 mg/dL [facility] Comment:Desirable Cholestero l: less than 200 mg/dLBorderline High Cholesterol: 200-239 mg/dLHigh Cholesterol: greater than 239 mg/dL LDL Cholesterol Calculated 59 <100 mg/dL [facility] Comment:Desirable LDL: less than 100 mg/dLNear Optimal/Above Optimal LDL: 110- 129 mg/dLBorderline High LDL: 130-159 mg/dLHigh LDL: 160-189 mg/dLVery High LDL: greater than or equal to 190 mg/dL HDL Cholesterol 49 >40 mg/dL [facility] Comment:Desirable HDL: great er than 40 mg/dL Note: This HDL assay may give artificially low results in patients with liver disease. Blood Venous blood specimen / Unknown 06/24/2024 8:13 AM EDT 06/24/2024 8:13 AM EDT Kirby Evangelista MD LAB BLOOD ORDERABLES Final Resul t [facility] [address] [place] [phone] * Hepatitis C Viral RNA, Quantitative, Real-Time PCR (11/14/2023 9:38 AM EDT) Hepatitis C Viral Load <15 NOT DETECTED NOT DETECTED IU/mL [facility] HCV Log PCR <1.18 NOT DETECTED NOT DETECTED Log IU/mL [facility] Comment:For additional infor mira, please refer [email or web address](This link is being provided for informational/educational purposes only.)THIS TEST WAS PERFORMED AT:[employer] [place] [phone] VINSON MD Blood 11/14/2023 9:38 AM EDT 11/14/2023 9:38 AM EDT Oralia Michelle MANAGER ENTRY LAB BLOOD ORDERABLES Final Resu lt [facility] [address] [place] [address] [phone] from Last 3 Months or Most Recently Relevant to Health Maintenance Insurance [facility] MEDICARE ADVANTAGE Care Teams Director Of Database Marketing Relationship Specialty Start Date End Date Name, MD Kirby [address] [place] [address] PCP - General Internal Medicine 10/25/23
--- OUTSIDE RECORDS SUMMARY | 2025-01-20 11:25 | XMS_ITS | Clinical Summary ---
Author Organization [facility] Address [address] [place] [address] Phone Care Team Providers Care Dental Laboratory Technician Apprentice Name Role Phone Alexiaricardo Oralia Primary Care Provider [phone] Allergies Active Allergy Reactions Criticality Noted Date Comments Lisinopril Angioedema High 04/20/2018 Metformin Unknown 04/29/2015 Medications No known medications Surgical History Surgery Date Site/Laterality Comments HYSTERECTOMY Medical History Medical History Date Comments Hypertension Diabetes mellitus ([facility] V24, [facility] V28) Social History Tobacco Use [...] Address: [facility] [place] [address] Care Teams Dental Laboratory Technician Apprentice Relationship Specialty Start Date End Date Oralia Michelle [address] [place] [address] PCP - General Family Medicine 01/24/24
--- OUTSIDE RECORDS SUMMARY | 2025-01-20 11:25 | XMS_ITS | Clinical Summary ---
Author Organization [facility] Address [address] [address] Phone Care Team Providers Care Cotton Farmer Name Role Phone Pcp, Unknown Primary Care [...] file Insurance MEDICARE REPLACEMENT MEDICARE REPLACEMENT [place] [id number] MEDICARE REPLACEMENT MEDICARE REPLACEMENT MEDICARE [place] [address] [place] [address] MEDICARE REPLACEMENT Care Teams Cotton Farmer Relationship Specialty Start Date End Date Pcp, Unknown PCP - General 01/26/24 Additional Source Comments The information contained in this document represents components of the legal health record. It is not the complete legal health record.[facility]
== END 2025-01-20 10:21 | disposition home or self-care (01) ==
LOC: HO.ENCR 09:37
PROVIDERS: Visit Provider Internal Medicine Endocrinology, Diabetes & Metabolism
DX: M81.0 Age-related osteoporosis without current pathological fracture (principal)

== ENCOUNTER → 2025-01-20 09:36 | Outpatient (BNVA) | payer MEDICARE, SELFPAY | PROVIDERS: Visit Provider Internal Medicine Endocrinology, Diabetes & Metabolism | DX: M81.0 Age-related osteoporosis without current pathological fracture (principal); Z79.620 Long term (current) use of immunosuppressive biologic | CPT/HCPCS: 96372; J0897 ==

== ENCOUNTER 2025-02-05 13:38 | Emergency (ER) | payer MEDICARE, SELFPAY ==
[2025-02-05 14:05] VITALS: BP 156/65; PULSE 87; RESP 18; TEMP 36.6; O2SAT 98; BMI 25.5
--- NOTE | 2025-02-05 14:05 | ED_ITS ---
HPI - General Adult General Chief complaint: Back Pain/Injury Stated complaint: back pain since ?monday Time Seen by Provider: 02/05/25 14:07 Source: patient, RN notes reviewed and old records reviewed Mode of arrival: ambulatory Limitations: no limitations History of Present Illness ED Provider: Nhung HPI narrative: Patient is a 74-year-old female with history of GERD, T2DM, HTN, HLD presenting in the emergency department with complaint of lower back pain since Monday. States that she leaned forward to pick something up and when she went to stand up her pain began. Denies any popping or cracking sensations. Denies any fall or other trauma. Denies saddle anesthesia or bowel or bladder incontinence. Denies any history of previous back surgeries. Try taking Tylenol with little relief. MD complaint: back pain Onset (ago): day(s) Related Data Home Medications ?Medication ?Instructions ?Recorded ?Confirmed aspirin 81 mg tablet,delayed 81 mg PO DAILY 12/26/19 1 02/25/24 release calcium carbonate 600 mg PO BID 12/26/1912/25 omeprazole 40 mg capsule,delayed 40 mg PO DAILY 12/25/24 release insulin glargine 100 unit/mL (3 16 unit subcut QPM PRN pump failure 03/01/24 12/25/24 mL) subcutaneous pen (Lantus Solostar U-100 Insulin) Previous Rx's ?Medication ?Instructions ?Recorded cholecalciferol (vitamin D3) 50 50 mcg PO DAILY #90 ca ps 01/26/21 mcg (2,000 unit) capsule dulaglutide 1.5 mg/0.5 mL 1.5 mg (0.5 mL) subcut QWEEK #2 mL 03/29/22 subcutaneous pen injector ([employer]) pen needle, diabetic 32 gauge x ##120 09/07/22 (BD Sheree 2nd Gen Pen Needle) blood-glucose meter #1 ea 09/13/22 blood-glucose meter (OneTouch #1 ea 09/13/22 Verio Flex Meter) insulin pump cartridge,automated #1 ea 10/18/22 dose,BT with controller subcutaneous (Omnipod 5 G6 Intro Kit (Gen 5) subcutaneous cartridge with controller) acetone (urine) test (Ketone Urine #25 ea 08/31/23 Test strips) insulin pump cart,automated,BT #10 ea 11/23/23 (Omnipod 5 G6 Pods (Gen 5) subcutaneous cartridge) insulin syringe-needle U-100 1 mL #100 ea 11/30/23 31 gauge x 5/16 (BD Insulin Syringe Ultra-Fine) lancets 33 gauge (OneTouch Delica #100 ea 02/07/24 Plus Lancet) bisacodyl 5 mg tablet,delayed 20 mg (4 x 5 mg) PO ONCE 1 day #4 04/01/24 release (Dulcolax (bisacodyl)) tabs polyethylene glycol 3350 17 238 g PO ONCE #238 grams 0 04/01/24 gram/dose oral powder (Miralax) losartan 25 mg tablet 25 mg PO DAILY 90 days #90 t abs 04/12/24 insulin lispro 100 unit/mL See Rx Instructions subcut 07/30/24 subcutaneous solution USEASDIRECTD 30 days #30 mL insulin pump cart,auto,BT,G6/7 #30 ea 07/30/24 (Omnipod 5 G6-G7 Pods (Gen 5) subcutaneous cartridge) blood-glucose meter (Accu-Chek 1 ea miscellaneous .ifeoma cks 3 X/day 09/23/24 Guide Glucose Meter) #1 ea blood-glucose sensor (Dexcom G7 #9 ea 10/09/24 Sensor device) atorvastatin 80 mg tablet 80 mg PO DAILY #90 tabs 11/0 08/14 lidocaine 5 % topical patch 1 patch topical DAILY #15 ea 02/05/25 methocarbamol 500 mg tablet 1,000 mg (2 x 500 mg) PO T ID 02/05/25 muscle spasms #10 tabs prednisone 20 mg tablet 20 mg PO BID #5 tabs 5 Allergies Allergy/AdvReac Type Severity Reaction Status Date / Time metformin Allergy Unknown GI Verified 02/05/25 14:07 discomfort Review of Systems Review of Systems: as per hpi Yes all other systems are reviewed and are negative Constitutional: Constitutional: Reports as per HPI [facility] Past Medical History Medical History (Updated 02/05/25 @ 14:08 by Ciarra Hooker NP) GERD (gastroesophageal reflux disease) Fibromyalgia Osteoporosis Vitamin D deficiency HLD (hyperlipidemia) HTN (hypertension) T2DM (type 2 diabetes mellitus) Type 2 diabetes mellitus with hyperglycemia Surgical History History of colonoscopy History of kidney stones Hx of hysterectomy Family History Family History Father COPD (chronic obstructive pulmonary disease) Mother Osteoporosis Type 2 diabetes mellitus Social History Social History Household Members: Spouse and Children Household Members Other:: , and adopted son Alcohol intake: former Patient Tobacco Use Status: Never used Tobacco Physical Exam ED Vital Signs: Vital signs have been reviewed and appear to be correct. Blood pressure normal. Heart rate normal. Respiratory rate normal. Temperature normal. Oxygen saturation normal. Const General: cooperative, healthy appearing and no acute distress Orientation/consciousness: oriented to person, oriented to place, oriented to time and patient oriented x3 Limitations: no limitations HENMT Head: Yes normocephalic and Yes atraumatic Ears: external ears normal General nose exam: Normal external nose present Face and sinus: Yes face symmetric Mouth: oropharynx normal and moist mucous membranes Throat: Yes uvula midline Eyes Pupils: Equal, round and reactive pupils present Neck Neck: Yes normal visual inspection and Yes supple Resp Effort & Inspection: normal respiratory effort and able to speak in complete s entences Auscultation: clear to auscultation bilaterally Cardio Rate: regular rate Rhythm: regular rhythm Heart sounds: S1 normal heart sound present and S2 normal heart sound present GI Palpation (GI): Soft to palpation and nontender Auscultation: normoactive bowel sounds General: Yes no CVA tenderness Back/Spine/Pelvis Back: no CVA tenderness Thoracic/Lumbar Spine: thoracic and lumbar spine normal to inspection, straight leg raise negative bilaterally, pain with thoraco-lumbar ROM, paraspinal muscle tenderness on the right, No thoracic spinal tenderness and No lumbar spinal tenderness Sacroiliac joints: on the right tender to palpation Skin General skin exam: elasticity normal and turgor normal Neuro General: oriented to person, oriented to place, oriented to time, patient oriented x3, tone normal, moves all extremities, Normal light touch and pain sensation, no focal motor deficits, CN's II-XI intact bilaterally and deep tendon reflexes 2+ bilaterally Cranial nerves: Yes Equal, round and reactive pupils present Cognition (Neuro): normal cognition Motor exam (neuro): 5/5 motor strength present throughout, Normal motor muscle tone present throughout and Motor abnormalities not present Extrem General: Yes full ROM, Yes no pedal edema and Yes no calf tenderness Psych Mental Status: mental status grossly normal Affect: normal affect Thought process: Normal thought process present Medical Decision Making Medical Decision Making [facility] Narrative: Patient is a 74-year-old female with history of GERD, T2DM, HTN, HLD presenting in the emergency department with complaint of lower back pain since Monday. On exam patient is awake, A+Ox3, VS WNL, afebrile, normal neurological exam without focal deficits, physical exam findings as above. Given reported symptoms and physical exam findings, initial differential includes but is not limited to initial differential includes lumbar strain, lumbar radiculopathy, degenerative disc disease, disc herniation, spinal stenosis, spondylosis. Less likely vertebral fracture. Do not suspect malignancy/mass, SEA, cauda equina/cord compression. Will discharge patient home on course of methocarbamol, topical lidocaine patches and short course of prednisone. Did discuss with patient that the prednisone can elevate her blood glucose levels. Advised follow up with PCP as she may require physical therapy if symptoms do not improve with medication. Return precautions discussed. Patient verbalized understanding of and agreement with plan. Differential Diagnosis Differential Diagnoses: The differential diagnosis associated with the presentation includes as per mdm Admission/Observation Consideration of admission/observation: Escalation of care including admission/observation considered Patient would have been admitted to the hospital and transferred to appropriate facility had their clinical presentation warranted hospital admission. External Record Review External record reviewed: Inpatient record, Office record and Outpatient record Prescription Management I considered prescription management with: Pain Medication and Other Discharge Plan Discharge Clinical Impression: Lumbar strain Qualifiers: Encounter type: initial encounter Qualified Code(s): S39.012A - Strain of muscle, fascia and tendon of lower back, initial encounter Patient Disposition: Home, Self-Care Instructions: Low Back Strain (ED), Back Pain (ED), Lower Back Exercises (ED), Core Strengthening Exercises (ED) Additional Instructions: You were evaluated in the emergency department today for back pain. Your evaluation did not show signs of medical conditions requiring emergent intervention at this time. We recommended that you use ibuprofen or Tylenol per package directions every 6 hours as needed for pain. If necessary, you can alternate these medications so that you take one medication every 3 hours. For instance, at noon take ibuprofen, then at 3:00 p.m. take Tylenol, then at 6:00 p.m. take ibuprofen. You have been prescribed a muscle relaxer called Flexeril (cyclobenzaprine) which you may take every 8 hours as needed for spasms. Do not drive, drink alcohol, or operate heavy machinery while taking this as it can cause drowsiness. You have been prescribed 5% topical lidocaine patches which you can wear for up to 12 hours in a 24 hour period. Do not apply heat directly over the patches. You have also been prescribed a short course of prednisone which is a steroid to decrease inflammation. Be aware, this can increase your blood glucose levels. Please schedule an appointment for follow-up with your primary care physician this week for further evaluation of your symptoms. Return to the emergency department if you experience worsening back pain, difficulty walking, fevers, numbness, tingling, incontinence, groin numbness or tingling, or any other concerning symptoms. Prescriptions: New methocarbamol 500 mg tablet 1,000 mg PO TID Qty: 10 0RF prednisone 20 mg tablet 20 mg PO BID Qty: 5 0RF lidocaine 5 % adhesive patch,medicated 1 patch topical DAILY Qty: 15 0RF Rx Instructions: leave on most painful area for up to 12 hrs No Action cholecalciferol (vitamin D3) 50 mcg (2,000 unit) capsule 50 mcg PO DAILY Qty: 90 0RF Trulicity 1.5 mg/0.5 mL pen injector 1.5 mg subcut QWEEK Qty: 2 4RF (DME) pen needle, diabetic [BD Sheree 2nd Gen Pen Needle] 32 gauge x 5/32 nee dle See Rx Instructions .ROUTE .COMPLEX Qty: 120 6RF Dose Instruction: USE DIRECTED FOUR TIMES A DAY Rx Instructions: USE DIRECTED FOUR TIMES A DAY (DME) blood-glucose meter [facility] See Rx Instructions .ROUTE .MEDSUPPLY Qty: 1 0RF Rx Instructions: As directed 3x/day (DME) blood-glucose meter [OneTouch Verio Flex meter] [facility] See Rx Instructions .Route Qty: 1 0RF Rx Instructions: As directed test 4 times a day (DME) Omnipod 5 G6 Intro Kit (Gen 5) Cartridge See Rx Instructions .Route Qty: 1 0RF Rx Instructions: As directed (DME) Omnipod 5 G6 Pods (Gen 5) Cartridge See Rx Instructions .ROUTE .COMPLEX Qty: 10 4RF Dose Instruction: DIRECTED Rx Instructions: DIRECTED (DME) lancets [OneTouch Delica Plus Lancet] 33 gauge misc See Rx Instructions .ROUTE .COMPLEX Qty: 100 11RF Dose Instruction: USE TO TEST 4 TIMES A DAY Rx Instructions: USE TO TEST 4 TIMES A DAY losartan 25 mg tablet 25 mg PO DAILY 90 Days Qty: 90 3RF (DME) Omnipod 5 G6-G7 Pods (Gen 5) Cartridge See Rx Instructions .Route Qty: 30 3RF Rx Instructions: As directed insulin lispro 100 unit/mL solution See Rx Instructions subcut USEASDIRECTD MDD 70 units 30 Days Qty: 30 10RF Rx Instructions: 70 units daily via pump subcutaneously use as directed; blood-glucose meter [Accu-Chek Guide Glucose Meter] [facility] 1 ea miscellaneous .checks 3 X/day Qty: 1 0RF (DME) Dexcom G7 Sensor Device See Rx Instructions .ROUTE .MEDSUPPLY Qty: 9 3RF Rx Instructions: continous every 10 days atorvastatin 80 mg tablet 80 mg PO DAILY Qty: 90 3RF aspirin 81 mg tablet,delayed release (DR/EC) 81 mg PO DAILY calcium carbonate 600 mg calcium (1,500 mg) tablet 600 mg PO BID omeprazole 40 mg capsule,delayed release(DR/EC) 40 mg PO DAILY (DME) insulin syringe-needle U-100 [BD Insulin Syringe Ultra-Fine] 1 mL 31 gauge x 5/16 syringe See Rx Instructions .ROUTE .MEDSUPPLY Qty: 100 3RF Rx Instructions: qid prn pump failure insulin glargine [Lantus Solostar U-100 Insulin] 100 unit/mL (3 mL) insulin pen 16 unit subcut QPM PRN (Reason: pump failure) bisacodyl [Dulcolax (bisacodyl)] 5 mg tablet,delayed release (DR/EC) 20 mg PO ONCE 1 Days Qty: 4 0RF Rx Instructions: take 4 tabs at noon the day before your colonoscopy polyethylene glycol 3350 [Miralax] 17 gram/dose powder 238 g PO ONCE Qty: 238 0RF Rx Instructions: As directed by gastroenterology department at [facility] (DME) Ketone Urine Test Strip See Rx Instructions .Route Qty: 25 1RF Rx Instructions: As directed Print Language: Scottish
[2025-02-05 14:46] VITALS: BP 156/65; PULSE 87; RESP 18; TEMP 36.6; O2SAT 98
--- OUTSIDE RECORDS SUMMARY | 2025-02-05 18:56 | XMS_ITS | Clinical Summary ---
Author Organization [facility] Address [address] [place] [address] Phone Care Team Providers Care Loftsman Name Role Phone Alexiaricardo Oralia Primary Care Provider [phone] Allergies Active Allergy Reactions Criticality Noted Date Comments Lisinopril Angioedema High 04/20/2018 Metformin Unknown 04/29/2015 Medications No known medications Surgical History Surgery Date Site/Laterality Comments HYSTERECTOMY Medical History Medical History Date Comments Hypertension Diabetes mellitus ([facility] V24, [facility] V28) Social History Tobacco Use Types Packs/Day Years Used Date Smoking Tobacco: Never Smokeless Tobacco: Never Tobacco Cessation:Counseling Given: Not Answered Comments Unknown Sex and Gender Information Value Date Recorded Sex Assigned at Not on file Legal Sex Female 4:33 AM EST Gender Identity Not on file Sexual Orientation Not on file Last Filed Vital Signs Vital Sign Reading [...] Group ID:[id number] Type:Not on file Address: [address] [facility] [place] [id number] Care Teams Loftsman Relationship Specialty Start Date End Date Oralia [address] [place] [address] PCP - General Family Medicine 01/24/24
--- OUTSIDE RECORDS SUMMARY | 2025-02-05 18:56 | XMS_ITS | Clinical Summary ---
Author Organization [facility] Address [address] [address] Phone Care Team Providers Care Appliance Service Supervisor Name Role Phone Pcp, Unknown Primary Care [...] file Insurance MEDICARE REPLACEMENT MEDICARE REPLACEMENT [place] [id number] MEDICARE REPLACEMENT MEDICARE REPLACEMENT MEDICARE [place]AC[place] [address] MEDICARE REPLACEMENT Care Teams Appliance Service Supervisor Relationship Specialty Start Date End Date Pcp, Unknown PCP - General 01/26/24 Additional Source Comments The information contained in this document represents components of the legal health record. It is not the complete legal health record.[facility]
--- OUTSIDE RECORDS SUMMARY | 2025-02-05 18:56 | XMS_ITS | Patient Health Record ---
Author Organization [facility] Address [address] [place] [address] Care Team Providers Care Foreign Exchange Clerk Name Role Phone Jenifer Xiao Primary Care Provider Goyo Alfonso Jr Unavailable [phone] Allergies Allergen (clinical drug ingredient) Drug/Non Drug [...] Status Risk Notes Problem Colon cancer screening (464334049) Colon cancer screening (Z12.11) Active confirmed Problem Gastroesophageal reflux disease without esophagitis (421794803) Gastroesophageal reflux disease without esophagitis (K21.9) Active confirmed Plan Of Treatment Future Test Test Name Order Date COLONOSCOPY 04/29/2015 Insurance Providers Payer Name Payer Address Payer Phone Subscriber Number Group Number Insured Name Patient Relationship to Insured Coverage Start Date Coverage End Date MEDICARE OF [place] [address] [place] [address] [phone] [id number] RENÉ RIZVI Self - patient is the insured Medical (General) History Medical History History ICD Code colonoscopy 11-12-2008 egd 03-08-2000 reflux colon polyps substernal burning and pain type 2 diabetes mellitus Denies UT,CVA,Lung disease,renal disease Surgical History Surgery Date(Month/Year) hysterectomy kidney stone removal
== END 2025-02-05 14:48 | disposition home or self-care (01) ==
PROVIDERS: Emergency Provider Emergency Medicine Emergency Medical Services; PCP Internal Medicine Geriatric Medicine
DX: S39.012A Strain of muscle, fascia and tendon of lower back, initial encounter (principal); X50.9XXA Other and unspecified overexertion or strenuous movements or postures, initial encounter; X50.0XXA Overexertion from strenuous movement or load, initial encounter; Y93.9 Activity, unspecified; Y92.9 Unspecified place or not applicable; K21.9 Gastro-esophageal reflux disease without esophagitis; I10 Essential (primary) hypertension; E11.9 Type 2 diabetes mellitus without complications; E78.5 Hyperlipidemia, unspecified; Z79.4 Long term (current) use of insulin; Z79.82 Long term (current) use of aspirin; Z79.899 Other long term (current) drug therapy
CPT/HCPCS: 99282; 99283